=== PATIENT | female | born 1960 | race Caucasian/White ===

== ENCOUNTER 2016-08-24 01:10 | Inpatient (IN) | payer MEDICARE, OTHER ==
[2016-08-24] VITALS (12 sets, daily range): BP systolic 133–158; BP diastolic 61–92; PULSE 89–106; RESP 17–24; TEMP 97.4–98.4; O2SAT 94–99
[~2016-08-24] VITALS: Ht 160 cm; Wt 39.0 kg
[~2016-08-24 01:10] MED LIST: FERR324T4 PO; HYDR25 PO; LACT PO; MELA10TA3 PO; NAPR220T9 PO; SERT100 PO; TRAZ50TA4 PO; TYLE500T PO
[2016-08-24] MEDS ORDERED: SODIUM CHLOR 0.9% 1000 ML INJ 1,000 ML IV SCH (01:19)
--- NOTE | 2016-08-24 01:24 | PD ---
HPI Chief Complaint: Abdominal Pain Time Seen by Provider: 01:19 Travel History International Travel<30 days: No Contact w/Intl Traveler<30days: No Traveled to known affect area: No History of Present Illness HPI This is a 56-year-old female with a history of COPD, who presents today with complaints of abdominal pain. The patient is unable to tell me when the abdominal pain started. She reports the pain as sharp and dull. She reports it as a 6-7 on the pain scale. She reports associated nausea vomiting. She denies any diarrhea. She does report that she has the urge to have a bowel movement however is unable to have a bowel movement. She states the pain is all over however it is worse in her left lower abdomen. There is no reported fevers chills. There is no reported hematemesis. She denies any dysuria, frequency, urgency. PFSH Past Medical History Asthma: Yes Anxiety: Yes Depression: No Heart Rhythm Problems: No Cancer: No Cardiovascular Problems: No Chest Pain: No Congestive Heart Failure: No COPD: Yes Cerebrovascular Accident: No Diabetes: No Endocrine: No Genitourinary: No Hepatitis: No Hiatal Hernia: No Immune Disorder: No Musculoskeletal: Yes (NECK/ BACK PAIN) Neurologic: Yes Psychiatric: Yes Reproductive: No Respiratory: No Migraines: Yes Seizures: No Sleep Apnea: No Thyroid Disease: No Tubal Ligation: Yes Past Surgical History Abdominal Surgery: No AICD: No Arteriovenous Shunt: No Cardiac Surgery: No Ear Surgery: No Endocrine Surgery: No Eye Surgery: No Gynecologic Surgery: Yes (TUBAL LIG.) Insulin Pump: No Joint Replacement: No Oral Surgery: No Pacemaker: No Thoracic Surgery: No Social History Alcohol Use: Yes (DAILY (DENIES)) Tobacco Use: Yes (1/2 PK) Substance Use: Yes (MARIJUANA daily) Allergies-Medications (Allergen,Severity, Reaction): Coded Allergies: Biaxin (Unverified Allergy, Severe, BURNING MOUTH, 08/24/16) Doxycycline (Unverified Allergy, Severe, Rash, 08/24/16) Vioxx (Unverified Allergy, Unknown, 08/24/16) Morphine (Unverified Adverse Reaction, Severe, NAUSEA, 08/24/16) Erythromycin (Verified Adverse Reaction, Intermediate, nausea, 08/24/16) Uncoded Allergies: cheese (Allergy, Mild, Cramping, 06/22/15) Reported Meds & Prescriptions Reported Meds & Active Scripts Active Review of Systems Except as stated in HPI: all other systems reviewed are Neg HENT: Positive: Lightheadedness, No: Headaches, Vertigo Cardiovascular: No: Chest Pain or Discomfort, Palpitations Respiratory: Positive: Shortness of Breath, No: Cough, Wheezing (chronic no new) Gastrointestinal: Positive: Nausea, Abdominal Pain (diffuse worse in the left lower quadrant.) Genitourinary: No: Frequency, Dysuria Musculoskeletal: No: Weakness, Pain Neurologic: No: Weakness, Dizziness, Headache Physical Exam Narrative GENERAL: Thin female who appears older than her stated age. The patient is complaining of abdominal pain SKIN: Focused skin assessment warm/dry. HEAD: Atraumatic. Normocephalic. EYES: No scleral icterus. No injection or drainage. ENT: No nasal bleeding or discharge. Dry mucous membranes. NECK: Trachea midline. Supple. CARDIOVASCULAR: Regular rate and rhythm. No murmur appreciated. RESPIRATORY: No accessory muscle use. Clear to auscultation. Breath sounds equal bilaterally. GASTROINTESTINAL: Abdomen soft, soft, nondistended. She has subjective tenderness in her periumbilical area and left lower area. There is voluntary guarding, no rebound. MUSCULOSKELETAL: No obvious deformities. No clubbing. No cyanosis. No edema. Questionable mild skin tenting. NEUROLOGICAL: Awake and alert. No obvious cranial nerve deficits. Motor grossly within normal limits. Normal speech. Data Data Last Documented VS Vital Signs Date Time Temp Pulse Resp B/P Pulse Ox O2 Delivery O2 Flow Rate FiO2 08/24/16 04:00 106 21 147/85 96 Room Air 08/24/16 01:13 97.4 Orders Complete Blood Count With Diff (08/24/16 01:19) Comprehensive Metabolic Panel (08/24/16 01:19) Urinalysis - C+S If Indicated (08/24/16 01:19) Iv Access Insert/Monitor (08/24/16 01:19) Ecg Monitoring (08/24/16 01:19) Oximetry (08/24/16 01:19) Ondansetron Inj (Zofran Inj) (08/24/16 01:30) Sodium Chlor 0.9% 1000 Ml Inj (Ns 1000 M (08/24/16 01:19) Sodium Chloride 0.9% Flush (Ns Flush) (08/24/16 01:30) Amylase (08/24/16 01:25) Lipase (08/24/16 01:25) Hydromorphone Pf Inj (Dilaudid Pf Inj) (08/24/16 02:30) Lactic Acid (08/24/16 03:34) Oral Contrast - Adult (08/24/16 03:47) Diatrizoate Liq ( Gastroemma Liq) (08/24/16 04:19) Hydromorphone Pf Inj (Dilaudid Pf Inj) (08/24/16 04:30) Sodium Chlor 0.9% 1000 Ml Inj (Ns 1000 M (08/24/16 04:45) Urine Culture (08/24/16 04:45) Ct Abd/Pel W/O Iv Contrast (08/24/16 03:42) Insert Ng Tube (08/24/16 06:53) Admit Order (Ed Use Only) (08/24/16 06:59) Labs Laboratory Tests Test 08/24/16 08/24/16 08/24/16 01:40 03:35 04:45 White Blood Count 29.4 TH/MM3 Red Blood Count 4.63 MIL/MM3 Hemoglobin 14.5 GM/DL Hematocrit 43.9 % Mean Corpuscular Volume 95.0 FL Mean Corpuscular Hemoglobin 31.3 PG Mean Corpuscular Hemoglobin 33.0 % Concent Red Cell Distribution Width 13.5 % Platelet Count 308 TH/MM3 Mean Platelet Volume 8.7 FL Neutrophils (%) (Auto) 84.4 % Lymphocytes (%) (Auto) 5.2 % Monocytes (%) (Auto) 10.3 % Eosinophils (%) (Auto) 0.0 % Basophils (%) (Auto) 0.1 % Neutrophils # (Auto) 24.9 TH/MM3 Lymphocytes # (Auto) 1.5 TH/MM3 Monocytes # (Auto) 3.0 TH/MM3 Eosinophils # (Auto) 0.0 TH/MM3 Basophils # (Auto) 0.0 TH/MM3 CBC Comment AUTO DIFF Differential Total Cells 100 Counted Neutrophils % (Manual) 61 % Band Neutrophils % 29 % Lymphocytes % 3 % Monocytes % 7 % Neutrophils # (Manual) 26.5 TH/MM3 Differential Comment FINAL DIFF MANUAL Platelet Estimate NORMAL Platelet Morphology Comment NORMAL Red Cell Morphology Comment NORMAL Sodium Level 136 MEQ/L Potassium Level 4.1 MEQ/L Chloride Level 95 MEQ/L Carbon Dioxide Level 21.4 MEQ/L Anion Gap 20 MEQ/L Blood Urea Nitrogen 45 MG/DL Creatinine 2.98 MG/DL Estimat Glomerular Filtration 16 ML/MIN Rate Random Glucose 119 MG/DL Calcium Level 8.8 MG/DL Total Bilirubin 0.6 MG/DL Aspartate Amino Transf 52 U/L (AST/SGOT) Alanine Aminotransferase 32 U/L (ALT/SGPT) Alkaline Phosphatase 192 U/L Total Protein 7.6 GM/DL Albumin 3.0 GM/DL Amylase Level 1126 U/L Lipase 69 U/L Lactic Acid Level 2.5 mmol/L Urine Color DARK-YELLOW Urine Turbidity HAZY Urine pH 5.0 Urine Specific [place] 1.022 Urine Protein 30 mg/dL Urine Glucose (UA) NEG mg/dL Urine Ketones NEG mg/dL Urine Occult Blood SMALL Urine Nitrite NEG Urine Bilirubin NEG Urine Urobilinogen 2.0 MG/DL Urine Leukocyte Esterase NEG Urine RBC 1 /hpf Urine WBC 1 /hpf Urine Squamous Epithelial 4 /hpf Cells Urine Amorphous Sediment RARE Urine Bacteria OCC /hpf Urine Hyaline Casts 7 /lpf Urine Mucus FEW /lpf Microscopic Urinalysis Comment CATH-CULTURE IND MDM Medical Decision Making Medical Screen Exam Complete: Yes Emergency Medical Condition: Yes Differential Diagnosis Diverticulitis versus obstipation versus ischemic bowel versus pancreatitis. Narrative Course This is a [age]-year-old female presents with abdominal pain. Patient also has nausea vomiting. Patient has a white count 29,400. Working diagnosis was concern for ischemic bowel. Unfortunate we're unable to obtain an IV contrast CT scan so oral contrast only was ordered. There is evidence of distended stomach and small bowel. There is a large amount of stool in her distal colon. Reading was no evidence of pneumatosis or colitis appreciated. She'll be admitted to the intensive care unit. The patient is very ill appearing. I spoke with Dr. Rich, on-call bath design sales consultant who will see the patient. She's been started and I V fluids. She's been given 2 doses of IVD pain medication. I did speak with Dr. Lim, on-call general surgeon, who will see her in consultation. Diagnosis Primary Impression: Abdominal pain Additional Impressions: Acute kidney injury Leukocytosis history of lung mass Admitting Information Admitting Physician Requests: Admit Jacinto Starks MD Aug 24, 2016 01:24
[2016-08-24] MEDS ORDERED: ONDANSETRON HCL 4 MG/2 ML VIAL IVP ONE (01:30)
[2016-08-24] MEDS ORDERED: HYDROmorphone HCL PF 1 MG/ML VIAL IVS ONE ×3 (01:30→04:30)
[2016-08-24] MEDS ORDERED: SODIUM CHLORIDE 0.9% FLUSH 10 ML FLUSH IV FLUSH PRN ×2 (01:30→08:30)
[2016-08-24 02:51] LABS: AUTOMATED NEUTROPHIL # 24.9 TH/MM3 (1.8-7.7); BASOPHIL % 0.1 % (0.0-2.0); HEMATOCRIT 43.9 % (35.0-46.0); LYMPH % 5.2 % (9.0-44.0); LYMPHOCYTE # 1.5 TH/MM3 (1.0-4.8); MEAN CORPUSCULAR HEMOGLOBIN 31.3 PG (27.0-34.0); MONO % 10.3 % (0.0-8.0); NEUT % 84.4 % (16.0-70.0); PLATELET COUNT 308 TH/MM3 (150-450); RED BLOOD COUNT 4.63 MIL/MM3 (4.00-5.30); RED CELL DISTRIBUTION WIDTH 13.5 % (11.6-17.2); WHITE BLOOD COUNT 29.4 TH/MM3 (4.0-11.0)
[2016-08-24 02:55] LABS: HEMO FLAGS AUTO DIFF
[2016-08-24 03:16] LABS: AMYLASE 1126 U/L (25-115)
[2016-08-24 03:22] LABS: BANDS 29 % (0-6); NEUTROPHIL # MANUAL DIFF 26.5 TH/MM3 (1.8-7.7); POLYS (SEG NEUTROPHILS) 61 % (16-70); WBC DIFF SAMPLE 100
[2016-08-24 03:23] LABS: PLATELET ESTIMATE SMEAR NORMAL (NORMAL); PLATELET MORPHOLOGY NORMAL (NORMAL); SCAN/DIFF FINAL DIFF MANUAL
[2016-08-24] MEDS ORDERED: DIATRIZOATE MEGLUM/DIATRIZOATE SOD 9 ML CUP ONE (04:19)
[2016-08-24] MEDS ORDERED: SODIUM CHLOR 0.9% 1000 ML INJ 1,000 ML IV ONE ×2 (04:45→08:45)
[2016-08-24 05:37] LABS: BACTERIA, URINE OCC /hpf; BLOOD, URINE SMALL (NEG); COMMENT (UR) CATH-CULTURE IND; CULTURE IF INDICATED CATH CULTURE IND; GLUCOSE,URINE NEG (NEG); HYALINE CAST, URINE 7 /lpf (RARE); KETONE, URINE NEG (NEG); MUCUS URINE FEW /lpf (OCC); NITRITE,URINE NEG (NEG); SQUAMOUS EPITHELIAL CELL URINE 4 /hpf (0-5); URINE COLOR DARK-YELLOW (YELLW/STRAW)
[2016-08-24 05:50] LABS: ALT (GPT) 32 U/L (10-53); ANION GAP 20 MEQ/L (5-15); AST (GOT) 52 U/L (15-37); BICARBONATE 21.4 MEQ/L (21.0-32.0); BLOOD UREA NITROGEN 45 MG/DL (7-18); CHLORIDE 95 MEQ/L (98-107); GLOMERULAR FILTRATION RATE 16 ML/MIN (>89); SODIUM (NA) 136 MEQ/L (136-145)
[2016-08-24 05:51] LABS: ALKALINE PHOSPHATASE 192 U/L (45-117); POTASSIUM 4.1 MEQ/L (3.5-5.1); TOTAL BILIRUBIN ADULT 0.6 MG/DL (0.2-1.0)
--- NOTE | 2016-08-24 06:47 | RADRPT ---
EXAM DATE/TIME: 08/24/2016 06:05 [facility] COMPARISON: No previous studies available for comparison. INDICATIONS : Left lower abdominal pain. No bowel movements x1 week. ORAL CONTRAST: Prescribed oral contrast ingested. RADIATION DOSE: 4.52 CTDIvol (mGy) MEDICAL HISTORY : Chronic obstructive pulmonary disease. SURGICAL HISTORY : Tubal ligation. Lumbar surgery. ENCOUNTER: Initial ACUITY: 1 week PAIN SCALE: 10/10 LOCATION: Left lower quadrant TECHNIQUE: Volumetric scanning of the abdomen and pelvis was performed. Using automated exposure control and ad justment of the mA and/or kV according to patient size, radiation dose was kept as low as reasonably achievable to obtain optimal diagnostic quality images. DICOM format image data is available electro nically for review and comparison. FINDINGS: LOWER LUNGS: Minimal consolidation medial left lung base unchanged LIVER: Homogeneous density without lesion. There is no dilation of the biliary tree. No calcified gallston es. SPLEEN: Normal size without lesion. PANCREAS: Within normal limits. KIDNEYS: Normal in size and shape. There is no mass, stone, or hydronephrosis. ADRENAL GLANDS: Within normal limits. VASCULAR: There is no aortic aneurysm. BOWEL/MESENTERY: The stomach is markedly dilated and filled with fluid and contrast. The small bowel is markedly diste nded filled with fluid. There is a large amount of stool throughout the transverse and descending col ons. The no evidence of pneumatosis is noted. There is no intraperitoneal air. I don't see any obviou s wall thickening of any of the loops of bowel identified. There is calcified atherosclerotic disease but what I see the mesenteric vessels are patent ABDOMINAL WALL: Within normal limits. RETROPERITONEUM: There is no lymphadenopathy. BLADDER: No wall thickening or mass. REPRODUCTIVE: Within normal limits. INGUINAL: There is no lymphadenopathy or hernia. MUSCULOSKELETAL: Within normal limits for patient age. CONCLUSION: There is marked distention and fluid filled stomach and small bowel. There is stool throughout the co clemente distally. No obvious wall thickening or pneumatosis identified. No visible evidence of colitis or ischemic bowel. Neto Zambrano MD on August 24, 2016 at 6:43 Board Certified Radiologist. This report was verified electronically.
[2016-08-24] MEDS ORDERED: PIPERACIL-TAZO 3.375 GM PREMIX 50 ML IV ONE (07:30)
[2016-08-24] MEDS ORDERED: RESP: ALBUTEROL 2.5 MG/3 ML NEB (PRN) INH (08:30)
[2016-08-24] MEDS ORDERED: MISCELLANEOUS NURSING INFORMATION XX SCH (08:30)
[2016-08-24] MEDS ORDERED: ACETAMINOPHEN 325 MG TAB PO PRN (08:30)
[2016-08-24] MEDS ORDERED: CHLORHEXIDINE GLUCONATE 2 % 1 PACK (2 CLOTHS) TOP PRN (08:30)
[2016-08-24] MEDS ORDERED: ACETAMINOPHEN 1000 MG/100 ML VIAL IV PRN (08:45)
[2016-08-24] MEDS ORDERED: SODIUM CHLOR 0.45% 1000 ML INJ 1,000 ML IV ONE (08:45)
[2016-08-24] MEDS ORDERED: GLYCERIN ADULT 2 GM SUPP RECTAL PRN (08:45)
[2016-08-24] MEDS ORDERED: NITROGLYCERIN 2% OINT 1 GM PACKET TOPICAL PRN (08:45)
[2016-08-24] MEDS ORDERED: LORazepam 2 MG/ML VIAL IV PUSH PRN (08:45)
[2016-08-24] MEDS ORDERED: PIPERACIL-TAZO 2.25 GM PREMIX 50 ML IV SCH (08:45)
[2016-08-24] MEDS ORDERED: hydrALAZINE HCL 20 MG/ML VIAL IV PUSH PRN (08:45)
[2016-08-24] MEDS ORDERED: METHYLNALTREXONE BROMIDE 12 MG/0.6 ML VIAL SQ ONE (08:45)
[2016-08-24] MEDS ORDERED: LABETALOL HCL 100 MG/20 ML VIAL IV PUSH PRN (08:45)
--- NOTE | 2016-08-24 08:58 | RADRPT ---
EXAM DATE/TIME: 08/24/2016 08:52 [facility] COMPARISON: CHEST SINGLE AP, June 25, 2015, 13:10. INDICATIONS : Short of breath MEDICAL HISTORY : Chronic obstructive pulmonary disease. SURGICAL HISTORY : Tubal ligation. ENCOUNTER: Initial ACUITY: 1 day PAIN SCORE: 0/10 LOCATION: Bilateral chest FINDINGS: There is hyperinflation. Aortic calcification noted. Heart size normal. EKG leads overlie the chest a nd oxygen tubing. NG tube coiled in the stomach. The ribs are noted left mid lung consolidation has r esolved however a focal left mid lung irregular density measuring 1.6 cm is identified consistent wit h the patient's known left mid lung mass. There is bronchiectasis in the left lower lobe with mild vo lume loss. CONCLUSION: 1. Left mid lung mass suspected with irregular nodular focus seen. 2. Left lower lobe bronchiectasis and atelectasis. Jacob Sung MD on August 24, 2016 at 8:54 Board Certified Radiologist. This report was verified electronically.
[2016-08-24] MEDS: SODIUM CHLORIDE 0.9% FLUSH 10 ML FLUSH IV FLUSH SCH ×2 (09:00→21:00)
--- NOTE | 2016-08-24 09:01 | HHI.HP ---
[facility] Service Critical Care Medicine Primary Care Physician Danya Lewis MD Admission Diagnosis abodominal pain, leukocytosis, obstipation, Diagnosis: (1) Atherosclerotic plaque Diagnosis: Principal (2) Obstipation Diagnosis: Principal (3) Elevated AST (SGOT) Diagnosis: Principal (4) COPD (chronic obstructive pulmonary disease) Diagnosis: Principal (5) Lactic acidosis Diagnosis: Principal (6) Elevated amylase Diagnosis: Principal (7) Tetrahydrocannabinol (THC) use disorder, mild, abuse Diagnosis: Principal (8) Leukocytosis Diagnosis: Principal (9) Acute kidney injury Diagnosis: Principal (10) Abdominal pain Diagnosis: Principal (11) Body mass index less than 16.5 Diagnosis: Principal (12) Tobacco abuse Diagnosis: Principal (13) Anxiety Diagnosis: Principal (14) Neutrophilic leukocytosis Diagnosis: Principal (15) Dyslipidemia Diagnosis: Principal (16) Cachectic Diagnosis: Principal (17) SIRS (systemic inflammatory response syndrome) Diagnosis: Principal Chief Complaint: Abdominal pain 2 days Travel History International Travel<30 Days: No Contact w/Intl Traveler <30 Da: No Traveled to Known Affected Are: No Sepsis Criteria SIRS Criteria (2 or more): WBC > 83554, < 4000 or > 10% bands Criteria Outcome: Meets SIRS criteria History of Present Illness 87-year-old female. Date of admission 08/24/2016. Past medical history includes migraine headache, anxiety disorder follows the [facility] and COPD. She smokes one half pack per day and uses THC. Patient states she has not had a "bowel movement" since 1 month ago. Since June, patient has issues with constipation after having a colonoscopy. Patient had normal bowel movements/regimen each morning prior to these events. CT abdomen/ pelvis revealed retained stool in the small bowel and also a possible mural thrombus in the distal aorta. He was evaluated by Dr. Dowling this is thought to be a mobile plaque. No further intervention at this time. Colonoscopy was performed which revealed no acute findings according to patient. For the past 2 days, patient is expressing diffuse abdominal pain/sharp separately involving her bilateral lower quadrant including nausea and vomiting. She is unable to keep down liquids. Pain is a score is 6 out of 10. Sharp. No relief. Not positional. CT abdomen/post revealed stomach dilated and filled with contrast. Small bowel dilated./Distended. There is stool throughout the transverse and descending colon. No signs of pneumatosis or mesenteric ischemia. White cell count was 29 ,000 with neutrophilic shift. Patient had creatinine of 2.90. Baseline 0.6. Lactic acid 2.5. Elevated amylase of 1126. Received 1 L normal saline in ED and Dilaudid 2 dosages for pain management. NG tube was placed in right nares with dark gastric contents. Abdomen still remains distended/patient with abdominal pain and feels dehydrated. Patient was evaluated by Dr. Lim/general surgery who recommended serial abdominal examinationsobservation. Review of Systems Constitutional: COMPLAINS OF: Fatigue, Weight loss, DENIES: Fever, Weight gain Endocrine: DENIES: Polydipsia, Polyuria Eyes: DENIES: Blurred vision, Vision loss Ears, nose, mouth, throat: DENIES: Tinnitus, Odynophagia Respiratory: DENIES: Apneas Cardiovascular: DENIES: Chest pain Gastrointestinal: COMPLAINS OF: Abdominal pain, Constipation, Nausea, Vomiting , Anorexia, DENIES: Black stools, Bloody stools, Diarrhea Musculoskeletal: COMPLAINS OF: Joint pain Integumentary: DENIES: Pruritus, Rash Hematologic/lymphatic: DENIES: Bruising Immunologic/allergic: DENIES: Eczema Neurologic: COMPLAINS OF: Headache, DENIES: Abnormal gait Psychiatric: COMPLAINS OF: Anxiety, DENIES: Confusion Past Family Social History Allergies: Coded Allergies: Biaxin (Unverified Allergy, Severe, BURNING MOUTH, 08/24/16) Doxycycline (Unverified Allergy, Severe, Rash, 08/24/16) Vioxx (Unverified Allergy, Unknown, 08/24/16) Morphine (Unverified Adverse Reaction, Severe, NAUSEA, 08/24/16) Erythromycin (Verified Adverse Reaction, Intermediate, nausea, 08/24/16) Uncoded Allergies: cheese (Allergy, Mild, Cramping, 06/22/15) Past Medical History Constipation Migraine headache Anxiety disorder -follows with [facility] COPD Ongoing tobaccoism THC use Past Surgical History Tubal ligation Carpal tunnel release Lumbar laminectomy 2001 Colonoscopy 07/09 Reported Medications Atarax Zoloft Trazodone Patient is also on inhaler and another antidepression medication which she does not know. Medicine reconciliation incomplete at this time. Active Ordered Medications Reviewed in EMR Family History Mother from lung cancer. Father of natural causes. One brother and sister in good health. Social History One half pack per day 30 years. Occasional alcohol use. Denies abuse. Positive THC use daily. Physical Exam Vital Signs Vital Signs Date Time Temp Pulse Resp B/P Pulse Ox O2 Delivery O2 Flow Rate FiO2 08/24/16 04:00 106 21 147/85 96 Room Air 08/24/16 03:30 18 08/24/16 01:17 22 08/24/16 01:13 97.4 103 22 158/91 99 Physical Exam GENERAL: 48-year-old female, critically ill currently resting in bed SKIN: Warm and dry. No rash HEAD: Atraumatic. Normocephalic. EYES: Pupils equal and round around 3 mm bilaterally and reactive. No scleral icterus. No injection or drainage. ENT: No nasal bleeding or discharge. Mucous membranes pink and dry. Oropharynx without erythema NECK: Trachea midline. No JVD. CARDIOVASCULAR: Regular rate and rhythm. S1, S2. No S4. RESPIRATORY: No accessory muscle use. Clear to auscultation. Breath sounds equal bilaterally. GASTROINTESTINA: Scaphoid, tender to palpation stenosis in the bilateral lower quadrants. Voluntary guarding. No rigidity. Bowel sounds were not appreciated after 30 seconds all 4 quadrants. MUSCULOSKELETAL: Extremities without peripheral edema. No obvious deformities. NEUROLOGICAL: Awake and alert. No obvious cranial nerve deficits. Motor grossly within normal limits. Five out of 5 muscle strength in the arms and legs. Normal speech. PSYCHIATRIC: Anxious. Laboratory Laboratory Tests Test 08/24/16 08/24/16 08/24/16 01:40 03:35 04:45 White Blood Count 29.4 Red Blood Count 4.63 Hemoglobin 14.5 Hematocrit 43.9 Mean Corpuscular Volume 95.0 Mean Corpuscular Hemoglobin 31.3 Mean Corpuscular Hemoglobin 33.0 Concent Red Cell Distribution Width 13.5 Platelet Count 308 Mean Platelet Volume 8.7 Neutrophils (%) (Auto) 84.4 Lymphocytes (%) (Auto) 5.2 Monocytes (%) (Auto) 10.3 Eosinophils (%) (Auto) 0.0 Basophils (%) (Auto) 0.1 Neutrophils # (Auto) 24.9 Lymphocytes # (Auto) 1.5 Monocytes # (Auto) 3.0 Eosinophils # (Auto) 0.0 Basophils # (Auto) 0.0 CBC Comment AUTO DIFF Differential Total Cells 100 Counted Neutrophils % (Manual) 61 Band Neutrophils % 29 Lymphocytes % 3 Monocytes % 7 Neutrophils # (Manual) 26.5 Differential Comment FINAL DIFF MANUAL Platelet Estimate NORMAL Platelet Morphology Comment NORMAL Red Cell Morphology Comment NORMAL Sodium Level 136 Potassium Level 4.1 Chloride Level 95 Carbon Dioxide Level 21.4 Anion Gap 20 Blood Urea Nitrogen 45 Creatinine 2.98 Estimat Glomerular Filtration 16 Rate Random Glucose 119 Calcium Level 8.8 Total Bilirubin 0.6 Aspartate Amino Transf 52 (AST/SGOT) Alanine Aminotransferase 32 (ALT/SGPT) Alkaline Phosphatase 192 Total Protein 7.6 Albumin 3.0 Amylase Level 1126 Lipase 69 Lactic Acid Level 2.5 Urine Color DARK-YELLOW Urine Turbidity HAZY Urine pH 5.0 Urine Specific [place] 1.022 Urine Protein 30 Urine Glucose (UA) NEG Urine Ketones NEG Urine Occult Blood SMALL Urine Nitrite NEG Urine Bilirubin NEG Urine Urobilinogen 2.0 Urine Leukocyte Esterase NEG Urine RBC 1 Urine WBC 1 Urine Squamous Epithelial 4 Cells Urine Amorphous Sediment RARE Urine Bacteria OCC Urine Hyaline Casts 7 Urine Mucus FEW Microscopic Urinalysis Comment CATH-CULTURE IND Date/Time Procedure Status Source Growth 08/24/16 04:45 Urine Culture Received Urine Catheterized Urine Pending Result Diagram: 08/24/16 0140 08/24/[address] abdomen/pelvis -stomach dilated and filled with fluid/contrast. Small bowel study. Still, the transverse and descending colon. No pneumatosis. No signs of mesenteric ischemia. Assessment and Plan Assessment and Plan Neuro/Psych: Anxiety disorder NOS Acute abdominal pain management History of migraine headache THC use Patient states she is on Atarax 25 mg 4 times daily, Zoloft unknown dosage daily and trazodone all the new medications. Pharmacy reconciliation pending at time of dictation We'll place on Ativan 0.5 every 6 hours when necessary for anxiety Ofirmev for fever/abdominal pain as needed x 24 hours She received Dilaudid in the ED without application. Noted morphine allergy. We'll place on 0.5-1 mg every 3 hours when necessary pain. CV: Hypertension History of aortic plaque Lactic acidosis Patient had a CT abdomen/pelvis in her records which is described as a mural thrombus with penetrating ulcer in descending distal aorta. Was evaluated by Dr. Pappas. According to patient, believes this is an aortic plaque. No intervention at this time. As needed labetalol/hydralazine/Nitropaste for hypertension Currently normal saline at 84 cc an hour. Not requiring vasopressors at the present time. CPK/troponin/EKG all pending Serial lactates until clear. Last 2.5 Resp: COPD Tobaccoism Nasal cannula to maintain saturations greater than equal to 92% Incentive spirometry while awake Patient is on unknown oral inhaler home. We'll place on duo nebs every 6 hours with albuterol nebs every 2 hours. Breakthrough Tobacco sensation will be encouraged. Nicotine patch if indicated GI: Abdominal pain NOS Obstipation History of constipation Elevated amylase Elevated AST CT abdomen/pelvis 08/23 oral contrast only revealed stemming dilated filled with fluid/contrast. Small bowel distended. Stool throughout the transverse colon/ descending colon. No pneumatosis. No signs of mesenteric ischemia or bowel edema. Evaluated by Dr. Lim/. Recommend serial abdominal exacerbations Will check bladder pressures every 6 hours. Repeat LFTs/amylase in a.m. Additional imaging as indicated clinically : Crowe catheter if indicated for accurate I's and O's in a critically ill patient Endo: Check TSH and cortisol in light of constipation Sliding scale insulin if indicated to maintain euglycemia Renal: Acute kidney injury - likely prerenal secondary to dehydration Urine electrolytes/eosinophils pending. Signs of hydronephrosis on abdominal CT. Received 1 L normal saline ED. Will give 2 additional liters of crystalloid. Recheck BMP this afternoon. Accurate I's and O's Monitor urine output Heme: Leukocytosis Likely reactive secondary to underlying abdominal etiology. Coags pending. Recheck CBC in a.m. monitor trends ID: We'll place empirically on Zosyn renally dosed day #1 Blood cultures 2, UA pending FEN: Replace electrolytes as clinically indicated. Currently normal saline at 84 cc an hour. MSK: Currently on bed rest. Access - Utilize peripheral IVs. Central line if indicated Prophylaxis - GI - Protonix - DVT - SCD/heparin subcutaneous Level III admission Code Status Full code Discussed Condition With After Starks/ED physician. Dr. Lim/general surgery. Patient. Care plan discussed questions answered. Problem Qualifiers (1) COPD (chronic obstructive pulmonary disease): Qualified Code: J44.9 - Chronic obstructive pulmonary disease, unspecified COPD type (2) Leukocytosis: Qualified Code: D72.825 - Bandemia (3) Abdominal pain: Qualified Code: R10.30 - Lower abdominal pain Rg Rich MD Aug 24, 2016 09:01
[2016-08-24] MEDS: PANTOPRAZOLE SODIUM 40 MG VIAL IV SCH (09:14)
[2016-08-24] MEDS: HEPARIN SODIUM - SQ 10,000 UNITS/ML VIAL SQ SCH ×2 (09:14→21:28)
[2016-08-24] MEDS: SODIUM CHLOR 0.9% 1000 ML INJ 1,000 ML IV SCH ×2 (09:14→20:55)
[2016-08-24 09:39] LABS: APTT (PATIENT) 40.4 SEC (24.3-30.1); INTERNATIONAL NORMALIZED RATIO 1.3 RATIO
[2016-08-24 10:27] LABS: CREATINE KINASE 513 U/L (26-192)
[2016-08-24 10:40] LABS: CKMB 16.9 NG/ML (0.5-3.6)
[2016-08-24] MEDS: RESP: ALBUTEROL 2.5 MG/IPRATROPIUM 0.5 MG NEB (SCH) INH ×3 (11:42→20:00)
[2016-08-24] MEDS: LACTULOSE SYRUP 20 GM/30 ML CUP PO SCH ×4 (12:04→21:28)
[2016-08-24] MEDS: DOCUSATE SODIUM 100 MG/10 ML UDC PO SCH ×2 (12:05→21:28)
[2016-08-24] MEDS: SENNOSIDES SYRUP 8.8 MG/5 ML CUP PO SCH (12:05)
[2016-08-24] MEDS: POLYETHYLENE GLYCOL 17 GM PKG PO SCH (12:05)
[2016-08-24] MEDS: PIPERACIL-TAZO 2.25 GM PREMIX 50 ML IV SCH ×2 (14:00→20:00)
[2016-08-24] MEDS: HYDROmorphone HCL PF 1 MG/ML VIAL IV PUSH PRN (15:16)
--- NOTE | 2016-08-24 15:52 | MB ---
cc: BERE BURT MD DATE OF CONSULTATION: 08/24/2016. REASON FOR CONSULTATION: Abdominal pain, rule out acute abdomen. HISTORY OF PRESENT ILLNESS: The patient is a 56-year-old female who presents with complaints of acute onset of abdominal pain. She stated the pain started over a month ago; however, in the last few days it has increased substantially to 8/10 bilateral lower quadrants. It is sharp. No improvement with home medications or laxatives or cathartics. The patient has also had multiple episodes of nausea and vomiting and unable to keep liquids down. Given this, she came to the emergency department for further evaluation. She had a CT scan showing dilated stomach, small bowel with large stool in her colon. She had a white count of 29, creatinine 2.9, lactate of 2.5 and amylase of 1126. A nasogastric tube was placed. Surgery was consulted for further evaluation. On my exam, the patient does have significant bilateral lower quadrant tenderness. She states she has had chronic abdominal pain for several months. She has had further workup including medical management with [facility] without much improvement. She did undergo colonoscopy and said her issues were exacerbated following this. She did not report any problem with the colonoscopy. She also had an endoscopy and "showing ulcers" and was placed on Protonix proton pump inhibitor. She does state her abdominal pain did improve somewhat with nasogastric tube placement and she states she has been constipated for approximately one month. She does have a history of chronic NSAID use but has stopped this since development of ulcers. She also has a history of diverticulosis, COPD and rheumatoid arthritis. The patient further denies fevers or chills or diarrhea. PAST MEDICAL HISTORY: 1. COPD. 2. Diverticulosis. 3. Rheumatoid arthritis. 4. Chronic back pain. PAST SURGICAL HISTORY: 1. Tubal ligation. 2. Carpal tunnel release. 3. Lumbar laminectomy. 4. Colonoscopy. 5. Endoscopy. MEDICATIONS: See the MAR. ALLERGIES: 1. BIAXIN. 2. DOXYCYCLINE. 3. ERYTHROMYCIN. 4. MORPHINE. 5. VIOXX. 6. CHEESE. FAMILY HISTORY: Mother of lung cancer. Father in good health. SOCIAL HISTORY: The patient smokes half-pack per day. Occasional ETOH. Positive THC. REVIEW OF SYSTEMS: GENERAL: The patient complained of fatigue and headache. No weight loss. Denies fevers. HEAD, EYES, EARS, NOSE, THROAT: Denies eye pain, ear pain. RESPIRATORY: Denies cough or wheeze. CARDIOVASCULAR: Denies palpitation or chest pain. GI: Complains of nausea, vomiting, abdominal pain, constipation. MUSCULOSKELETAL: Complained of arthralgias. Denies myalgia. INTEGUMENT: Denies rash or itching. HEMATOLOGIC: Denies bleeding of bruising. ENDOCRINE: Denies eczema. NEUROLOGIC: Denies numbness or tingling. PSYCHIATRIC: Denies confusion. Complained of anxiety. PHYSICAL EXAMINATION: GENERAL: The patient is in no acute distress. VITAL SIGNS: Temperature 97.4, pulse 103, respirations 22, blood pressure 158/91, pulse oximetry 99%. HEAD, EYES, EARS, NOSE, THROAT: Pupils equal, round and reactive to light and accommodation. Extraocular muscles intact. NECK: The neck is supple. Trachea is midline. HEART: Regular rate and rhythm. S1 and S2. CHEST /LUNGS: Bilateral expansion. Clear. ABDOMEN: Positive tenderness to palpation bilateral lower quadrants, guarding. No rigidity. No peritoneal signs. EXTREMITIES: Warm and well-perfused. NEUROLOGIC: Alert and oriented times three. 5/5 motor all extremities. PSYCHIATRIC: Anxiety. LABORATORY AND DIAGNOSTIC DATA: WBC 29.4, hemoglobin 14.5, hematocrit 43.9, platelets 308,000. Sodium 136, potassium 4.1, chloride 95, BUN 45, creatinine 2.9, lactate 2.5, calcium 8.8, AST 52, ALT 32, alkaline phosphatase 192. Amylase 1126, lipase 69. INR is 1.3, PT 14, PTT 40. CT reviewed by myself noncontrasted study: Distended fluid-filled small bowel and stomach. Significant fecal load in colon. No evidence of pneumatosis. No appearance of ischemia. ASSESSMENT: The patient is a 56-year-old female with several medical issues including a small ulcer which is treated with PPI, abdominal pain, severe constipation with obstruction from this, history of diverticulosis, history of mural thrombus evaluated with nonoperative management. PLAN: After full clinical, radiologic and laboratory workup, patient with above-named issues including acute significant abdominal pain. At this point, the patient does have bowel obstruction likely due to significant fecal load and impaction.. 1. At this point I recommend stool softeners and digital disimpaction and possible enema to help alleviate this. 2. The patient does have a leukocytosis of 29 but is afebrile and otherwise stable. She does not have any peritoneal signs. I am not currently concerned of any perforation at this time; however, we will monitor and watch the patient closely. 3. Further potential concern would be for mesenteric ischemia as the patient does have a history of questionable mural thrombus in the past. At this point, if the patient's creatinine improves, we could consider obtaining CT scan angiogram to evaluate the vessels; however again, recommend IV hydration, pain control and possible antibiotics for initial treatment of this as the patient does have significantly tender abdomen but no evidence of peritoneal signs. 4. The patient does have a history of small duodenal ulcers. At this point, recommend continuing Protonix. 5. The patient is also further at risk for ulcer due to the smoking and the chronic NSAIDs, which she should avoid NSAIDs and recommend smoking cessation. 6. Further agree with trending lactate until clear. 7. Agree with nasogastric tube placement. Again, we will treat this nonoperatively. If any change in clinical status, we will consider operative intervention but until now, nonoperative intervention. MD SHELLIE Camar[place]/[facility] /1:22 PM /3:36 PM
[2016-08-24 20:00] LABS: BICARBONATE 24.1 MEQ/L (21.0-32.0); MAGNESIUM 3.5 MG/DL (1.5-2.5); POTASSIUM 3.6 MEQ/L (3.5-5.1)
[2016-08-24 20:13] LABS: CALCIUM-PROTEIN CORRECTED 8.2 MG/DL (8.5-10.1)
[2016-08-24] MEDS: MAGNESIUM CITRATE SOLN 300 ML BTL PO SCH (21:28)
[2016-08-25] VITALS (14 sets, daily range): BP systolic 132–162; BP diastolic 63–76; PULSE 76–92; RESP 16–21; TEMP 97.2–98.7; O2SAT 95–100
[2016-08-25] MEDS: BISACODYL EC 5 MG TABEC PO SCH ×2 (02:10→03:44)
[2016-08-25] MEDS: PIPERACIL-TAZO 2.25 GM PREMIX 50 ML IV SCH ×4 (02:10→20:08)
[2016-08-25] MEDS: MAGNESIUM CITRATE SOLN 300 ML BTL PO SCH (02:10)
[2016-08-25] MEDS: CHLORHEXIDINE GLUCONATE 2 % 1 PACK (2 CLOTHS) TOP SCH (02:13)
[2016-08-25 03:36] LABS: AUTOMATED NEUTROPHIL # 13.5 TH/MM3 (1.8-7.7); BASOPHIL % 0.2 % (0.0-2.0); EOSINOPHIL % 0.1 % (0.0-4.0); HEMATOCRIT 29.3 % (35.0-46.0); HEMO FLAGS DIFF FINAL; LYMPH % 4.6 % (9.0-44.0); LYMPHOCYTE # 0.7 TH/MM3 (1.0-4.8); MEAN CELL VOLUME 94.2 FL (80.0-100.0); MEAN CORPUSCULAR HEMOGLOBIN 31.2 PG (27.0-34.0); MEAN CORPUSCULAR HGB CONC 33.2 % (32.0-36.0); MONO % 9.9 % (0.0-8.0); NEUT % 85.2 % (16.0-70.0); PLATELET COUNT 226 TH/MM3 (150-450); RED BLOOD COUNT 3.12 MIL/MM3 (4.00-5.30); RED CELL DISTRIBUTION WIDTH 13.4 % (11.6-17.2); WHITE BLOOD COUNT 15.9 TH/MM3 (4.0-11.0)
[2016-08-25] MEDS: RESP: ALBUTEROL 2.5 MG/IPRATROPIUM 0.5 MG NEB (SCH) INH ×7 (04:00→23:09)
[2016-08-25 04:10] LABS: APTT (PATIENT) 42.7 SEC (24.3-30.1)
[2016-08-25 04:13] LABS: PROTHROMBIN TIME - PATIENT 12.2 SEC (9.8-11.6)
[2016-08-25 04:14] LABS: ALKALINE PHOSPHATASE 120 U/L (45-117); ALT (GPT) 40 U/L (10-53); ANION GAP 9 MEQ/L (5-15); AST (GOT) 79 U/L (15-37); BICARBONATE 23.9 MEQ/L (21.0-32.0); BLOOD UREA NITROGEN 48 MG/DL (7-18); CHLORIDE 107 MEQ/L (98-107); GLOMERULAR FILTRATION RATE 45 ML/MIN (>89); INTERNATIONAL NORMALIZED RATIO 1.1 RATIO; MAGNESIUM 3.6 MG/DL (1.5-2.5); POTASSIUM 3.6 MEQ/L (3.5-5.1); SODIUM (NA) 140 MEQ/L (136-145); TOTAL BILIRUBIN ADULT 0.5 MG/DL (0.2-1.0)
[2016-08-25] MEDS: HYDROmorphone HCL PF 1 MG/ML VIAL IV PUSH PRN ×5 (05:39→23:41)
--- NOTE | 2016-08-25 08:02 | HHI.CCPN ---
Subjective Remarks/Hospital Course 87-year-old female. Date of admission 08/24/2016. Past medical history includes migraine headache, anxiety disorder follows the [facility] and COPD. She smokes one half pack per day and uses THC. Patient states she has not had a "bowel movement" since 1 month ago. Since June, patient has issues with constipation after having a colonoscopy. Patient had normal bowel movements/regimen each morning prior to these events. CT abdomen/ pelvis revealed retained stool in the small bowel and also a possible mural thrombus in the distal aorta. He was evaluated by Dr. Dowling this is thought to be a mobile plaque. No further intervention at this time. Colonoscopy was performed which revealed no acute findings according to patient. For the past 2 days, patient is expressing diffuse abdominal pain/sharp separately involving her bilateral lower quadrant including nausea and vomiting. She is unable to keep down liquids. Pain is a score is 6 out of 10. Sharp. No relief. Not positional. CT abdomen/post revealed stomach dilated and filled with contrast. Small bowel dilated./Distended. There is stool throughout the transverse and descending colon. No signs of pneumatosis or mesenteric ischemia. White cell count was 29,000 with neutrophilic shift. Patient had creatinine of 2.90. Baseline 0.6. Lactic acid 2.5. Elevated amylase of 1126. Received 1 L normal saline in ED and Dilaudid 2 dosages for pain management. NG tube was placed in right nares with dark gastric contents. Abdomen still remains distended/patient with abdominal pain and feels dehydrated. Patient was evaluated by Dr. iLm/general surgery who recommended serial abdominal examinationsobservation. 08/25 Patient reports feeling nauseas this morning and abdominal pain. Had 3 small BM's overnight. Afebrile. WBC is trending down and renal function is improving CT abdomen/pelvis yesterday showed marked distention and fluid filled stomach and small bowel. There is stool throughout the colon distally. No obvious wall thickening or pneumatosis identified. No visible evidence of colitis or ischemic bowel. Objective Vital Signs Date Time Temp Pulse Resp B/P Pulse Ox O2 Delivery O2 Flow Rate FiO2 08/25/16 07:11 100 21 08/25/16 06:09 19 08/25/16 06:00 84 08/25/16 04:00 98.1 138/65 08/24/16 20:00 Nasal Cannula 2.00 Intake and Output 08/24/16 08/24/16 08/25/16 08:00 16:00 00:00 Intake Total 1000 ml 360 ml Output Total 750 ml 1000 ml Balance -750 ml 1000 ml -640 ml Result Diagram: 08/25/16 0326 08/25/16 0326 Other Results Laboratory Tests Test 08/24/16 08/24/16 08/24/16 08/24/16 09:00 13:30 15:02 17:03 Prothrombin Time 14.0 SEC Prothromb Time International 1.3 RATIO Ratio Activated Partial 40.4 SEC Thromboplast Time Total Creatine Kinase 513 U/L Creatine Kinase MB 16.9 NG/ML Creatine Kinase MB % 3.3 % Troponin I LESS THAN 0.02 NG/ML Nasal Screen MRSA (PCR) MRSA NOT DETECTED Urine Eosinophils NONE SEEN /HPF Lactic Acid Level 0.9 mmol/L Test 08/24/16 08/24/16 08/25/16 18:51 23:45 03:26 Sodium Level 136 MEQ/L 140 MEQ/L Potassium Level 3.6 MEQ/L 3.6 MEQ/L Chloride Level 103 MEQ/L 107 MEQ/L Carbon Dioxide Level 24.1 MEQ/L 23.9 MEQ/L Anion Gap 9 MEQ/L 9 MEQ/L Blood Urea Nitrogen 59 MG/DL 48 MG/DL Creatinine 1.66 MG/DL 1.22 MG/DL Estimat Glomerular Filtration 32 ML/MIN 45 ML/MIN Rate Random Glucose 88 MG/DL 81 MG/DL Calcium Level 7.3 MG/DL 7.5 MG/DL Protein Corrected Calcium 8.2 MG/DL Phosphorus Level 4.6 MG/DL 3.2 MG/DL Magnesium Level 3.5 MG/DL 3.6 MG/DL Total Protein 5.4 GM/DL 5.8 GM/DL Thyroid Stimulating Hormone 0.246 uIU/ML 3rd Gen Random Cortisol 51.4 MCG/DL Lactic Acid Level 0.6 mmol/L 0.6 mmol/L White Blood Count 15.9 TH/MM3 Red Blood Count 3.12 MIL/MM3 Hemoglobin 9.7 GM/DL Hematocrit 29.3 % Mean Corpuscular Volume 94.2 FL Mean Corpuscular Hemoglobin 31.2 PG Mean Corpuscular Hemoglobin 33.2 % Concent Red Cell Distribution Width 13.4 % Platelet Count 226 TH/MM3 Mean Platelet Volume 7.7 FL Neutrophils (%) (Auto) 85.2 % Lymphocytes (%) (Auto) 4.6 % Monocytes (%) (Auto) 9.9 % Eosinophils (%) (Auto) 0.1 % Basophils (%) (Auto) 0.2 % Neutrophils # (Auto) 13.5 TH/MM3 Lymphocytes # (Auto) 0.7 TH/MM3 Monocytes # (Auto) 1.6 TH/MM3 Eosinophils # (Auto) 0.0 TH/MM3 Basophils # (Auto) 0.0 TH/MM3 CBC Comment DIFF FINAL Differential Comment Prothrombin Time 12.2 SEC Prothromb Time International 1.1 RATIO Ratio Activated Partial 42.7 SEC Thromboplast Time Total Bilirubin 0.5 MG/DL Aspartate Amino Transf 79 U/L (AST/SGOT) Alanine Aminotransferase 40 U/L (ALT/SGPT) Alkaline Phosphatase 120 U/L Albumin 2.2 GM/DL Imaging Last Impressions Abdomen/Pelvis CT 08/24/16 0342 Signed Impressions: Service Date/Time: Wednesday, August 24, 2016 06:05 - CONCLUSION: There is marked distention and fluid filled stomach and small bowel. There is stool throughout the colon distally. No obvious wall thickening or pneumatosis identified. No visible evidence of colitis or ischemic bowel. Neto Zambrano MD Chest X-Ray 08/24/16 0000 Signed Impressions: Service Date/Time: Wednesday, August 24, 2016 08:52 - CONCLUSION: 1. Left mid lung mass suspected with irregular nodular focus seen. 2. Left lower lobe bronchiectasis and atelectasis. Jacob Sung MD Objective Remarks GENERAL: Patient is 56 yo lying in bed in no acute resp distress SKIN: Warm and dry. HEAD: Normocephalic. EYES: No scleral icterus. No injection or drainage. NECK: Supple, trachea midline. No JVD or lymphadenopathy. CARDIOVASCULAR: Regular rate and rhythm without murmurs, gallops, or rubs. RESPIRATORY: Breath sounds equal bilaterally. No accessory muscle use. GASTROINTESTINAL: Abdomen soft, mild tenderness on palpation MUSCULOSKELETAL: No cyanosis, or edema. Neuro: Awake and alert A/P Assessment and Plan Neuro/Psych: Anxiety disorder NOS Acute abdominal pain management History of migraine headache THC use We'll place on Ativan 0.5 every 6 hours when necessary for anxiety Ofirmev for fever/abdominal pain as needed She received Dilaudid in the ED without issues. Noted morphine allergy. on 0.5-1 mg every 3 hours when necessary pain. CV: Hypertension History of aortic plaque Lactic acidosis Patient had a CT abdomen/pelvis in her records which is described as a mural thrombus with penetrating ulcer in descending distal aorta. Was evaluated by Dr. Pappas. According to patient, believes this is an aortic plaque. No intervention at this time. As needed labetalol/hydralazine/Nitropaste for hypertension Monitor HR and BP keep MAP>65mmHg On NS@84ml/hr. Resp: COPD Tobaccoism Continue with oxygen keep sat > 92% Incentive spirometry while awake Bronchodilators, pulm eval for left lung mass GI: Abdominal pain NOS Obstipation History of constipation Elevated amylase Elevated AST CT abdomen/pelvis 08/23 oral contrast only revealed stemming dilated filled with fluid/contrast. Small bowel distended. Stool throughout the transverse colon/ descending colon. No pneumatosis. No signs of mesenteric ischemia or bowel edema. Evaluated by Dr. Lim/GS. Recommend serial abdominal exacerbations Check KUB abdomen. Continue with bowel regimens ( Senna, Colace, Miralax, Lactulose) Had 3 small BM's overnight. NGT to LIWMS ( 400ml gastric drainage overnight) Monitor LFT's and Amylase level. Endo: Sliding scale insulin if indicated to maintain euglycemia Cortisol level 51.4, TSH: 0.24 Renal: Acute kidney injury - likely prerenal secondary to dehydration Monitor renal function, I/O's, electrolytes replacement as needed Renal function is improving with Cr: 1.22 today from 1.66 On NS@84ml/hr Heme: Leukocytosis..trending down Monitor CBC ID: Continue with abx( Zosyn)monitor for signs of infections ( Fever, WBC) WBC trending down Follow up on BC and urine cx from 08/24 MSK: Currently on bed rest. Access - Utilize peripheral IVs. Prophylaxis - GI - Protonix - DVT - SCD/heparin subcutaneous Will sign off and transfer care to [facility] Level III Eric Potter MD Aug 25, 2016 08:02 Currently on bed rest. Access - Utilize peripheral IVs. Central line if indicated Prophylaxis - GI - Protonix - DVT - SCD/heparin subcutaneous Level III admission Eric Potter MD Aug 25, 2016 08:02
[2016-08-25] MEDS: SODIUM CHLOR 0.9% 1000 ML INJ 1,000 ML IV SCH (08:50)
--- NOTE | 2016-08-25 09:02 | RADRPT ---
EXAM DATE/TIME: 08/25/2016 08:27 [facility] COMPARISON: CT ABDOMEN & PELVIS W/O CONTRAST, August 24, 2016, 6:05. INDICATIONS : Abdominal pain. MEDICAL HISTORY : Chronic obstructive pulmonary disease. SURGICAL HISTORY : Tubal ligation. Lumbar surgery. ENCOUNTER: Initial ACUITY: 1 week PAIN SCORE: 7/10 LOCATION: Bilateral lower quadrant abdomen FINDINGS: Supine view of the abdomen was performed. There is some air filled mildly to moderately dilated loops of small bowel in the mid abdomen. The colon is nondistended. However, compared to the CT scan of the bowel gas distention of the small bowel appears to be improved. Also, on the prior CT the stomach appeared to be distended on this examination the stomach is decompressed with an NG tube.. CONCLUSION: There is mild to moderate gaseous distention of the small bowel which appears to be significantly imp roved compared to the prior CT scan of the abdomen. There is an NG tube in the stomach. Sourav Ward MD on August 25, 2016 at 8:58 Board Certified Radiologist. This report was verified electronically.
[2016-08-25] MEDS: POLYETHYLENE GLYCOL 17 GM PKG PO SCH (09:09)
[2016-08-25] MEDS: PANTOPRAZOLE SODIUM 40 MG VIAL IV SCH (09:09)
[2016-08-25] MEDS: LACTULOSE SYRUP 20 GM/30 ML CUP PO SCH ×4 (09:09→20:09)
[2016-08-25] MEDS: DOCUSATE SODIUM 100 MG/10 ML UDC PO SCH ×2 (09:09→20:08)
[2016-08-25] MEDS: HEPARIN SODIUM - SQ 10,000 UNITS/ML VIAL SQ SCH ×2 (09:10→20:08)
[2016-08-25] MEDS: SODIUM CHLORIDE 0.9% FLUSH 10 ML FLUSH IV FLUSH SCH ×2 (09:10→20:08)
[2016-08-25] MEDS: SENNOSIDES SYRUP 8.8 MG/5 ML CUP PO SCH (09:10)
--- NOTE | 2016-08-25 09:29 | HHI.PR ---
Subjective Subjective Notes stable overnight, no acute issues, received soapsud enema small bm, wbc better, lactate cleared Objective Vitals/I&O Vital Signs Date Time Temp Pulse Resp B/P Pulse Ox O2 Delivery O2 Flow Rate FiO2 08/25/16 09:00 82 18 141/64 97 08/25/16 08:00 98.5 08/25/16 07:15 Room Air 08/25/16 07:11 21 08/24/16 20:00 2.00 Labs Laboratory Tests Test 08/24/16 08/24/16 08/24/16 08/24/16 13:30 15:02 17:03 18:51 Nasal Screen MRSA (PCR) MRSA NOT DETECTED Urine Eosinophils NONE SEEN Lactic Acid Level 0.9 Sodium Level 136 Potassium Level 3.6 Chloride Level 103 Carbon Dioxide Level 24.1 Anion Gap 9 Blood Urea Nitrogen 59 Creatinine 1.66 Estimat Glomerular Filtration 32 Rate Random Glucose 88 Calcium Level 7.3 Protein Corrected Calcium 8.2 Phosphorus Level 4.6 Magnesium Level 3.5 Total Protein 5.4 Thyroid Stimulating Hormone 0.246 3rd Gen Random Cortisol 51.4 Test 08/24/16 08/25/16 23:45 03:26 Lactic Acid Level 0.6 0.6 White Blood Count 15.9 Red Blood Count 3.12 Hemoglobin 9.7 Hematocrit 29.3 Mean Corpuscular Volume 94.2 Mean Corpuscular Hemoglobin 31.2 Mean Corpuscular Hemoglobin 33.2 Concent Red Cell Distribution Width 13.4 Platelet Count 226 Mean Platelet Volume 7.7 Neutrophils (%) (Auto) 85.2 Lymphocytes (%) (Auto) 4.6 Monocytes (%) (Auto) 9.9 Eosinophils (%) (Auto) 0.1 Basophils (%) (Auto) 0.2 Neutrophils # (Auto) 13.5 Lymphocytes # (Auto) 0.7 Monocytes # (Auto) 1.6 Eosinophils # (Auto) 0.0 Basophils # (Auto) 0.0 CBC Comment DIFF FINAL Differential Comment Prothrombin Time 12.2 Prothromb Time International 1.1 Ratio Activated Partial 42.7 Thromboplast Time Sodium Level 140 Potassium Level 3.6 Chloride Level 107 Carbon Dioxide Level 23.9 Anion Gap 9 Blood Urea Nitrogen 48 Creatinine 1.22 Estimat Glomerular Filtration 45 Rate Random Glucose 81 Calcium Level 7.5 Phosphorus Level 3.2 Magnesium Level 3.6 Total Bilirubin 0.5 Aspartate Amino Transf 79 (AST/SGOT) Alanine Aminotransferase 40 (ALT/SGPT) Alkaline Phosphatase 120 Total Protein 5.8 Albumin 2.2 Amylase Level 269 Date/Time Procedure Status Source Growth 08/24/16 09:00 Aerobic Blood Culture Received Blood Peripheral Pending 08/24/16 09:00 Anaerobic Blood Culture Received Blood Peripheral Pending 08/24/16 04:45 Urine Culture Received Urine Catheterized Urine Pending Cardiovascular: Regular Lungs: Clear Abdomen: Other (soft, +ttp no rebound, mild guarding) A/P Assessment and Plan 56-year-old female with abdominal pain, severe constipation, axr shows some improvement, labs trending down PLAN NG sxn ok for small amount of ice chips bowel regimen continue non operative mgnt abdominal exams will follow closely Benjie Lim MD Aug 25, 2016 09:29
--- NOTE | 2016-08-25 11:49 | PD.CONS ---
GI Consult GI Consult Thank you for the consultation, GI full consult dictated. ASSESSMENT/PLAN: 1. Constipation 2. abdominal pain Has already had EGD and Colon recently. 3. N/v 4 . Tortous colon found on colon. PLAN: 1. Clamp and d/c ng tube (pt understands if n/v and distention will replace) 2. Gastrografin enema 3. Then Lactulose 15 ml TID and miralax daily as tolerated. 4. Antiemetics as needed. 5. No urgent plan for endoscopy. It was a pleasure seeing Yoselin Ernandez Thank you for this consult. Entered by: Soraida Reddy MD Aug 25, 2016 11:49
[2016-08-25] MEDS: DEXT 5%-NACL 0.9% 1000 ML INJ 1,000 ML IV SCH (12:00)
[2016-08-25] MEDS: INSULIN NovoLIN REGULAR SUPPLEMENTAL SCALE SQ SCH ×4 (12:00→23:43)
[2016-08-25] MEDS ORDERED: DEXTROSE 50% IN WATER 50 ML VIAL(D50) IV PRN (12:00)
[2016-08-25] MEDS ORDERED: GLUCAGON 1 MG/ML VIAL OTHER PRN (12:00)
[2016-08-25] MEDS ORDERED: DIATRIZOATE MEGLUM/DIATRIZOATE SOD 120 ML BTL (for RAD DIAG) RECTAL ONE (14:20)
--- NOTE | 2016-08-25 14:38 | EKG ---
Date Performed: 08/24/2016 Time Performed: 12:26:27 PTAGE: 56 years EKG: Sinus rhythm NONSPECIFIC T-WAVE ABNORMALITY Since previous tracing, no significant change noted BORDERLINE ECG PREVIOUS TRACING : 06/21/2015 08.22.07 DOCTOR: Molina Boyle Interpretating Date/Time 08/25/2016 14:37:23
--- NOTE | 2016-08-25 15:54 | RADRPT ---
EXAM DATE/TIME: 08/25/2016 14:13 [facility] COMPARISON: No previous studies available for comparison. INDICATIONS : Constipation. FLUORO TIME: 1.7 minutes IMAGE COUNT: 24 CONTRAST: 1. [facility] MEDICAL HISTORY : Chronic obstructive pulmonary disease. SURGICAL HISTORY : Tubal ligation. Lumbar surgery ENCOUNTER: Subsequent ACUITY: 1 month PAIN SCORE: 7/10 LOCATION: Bilateral abdomen FINDINGS: Preliminary film is demonstrates some gaseous distention of the colon. There is stool throughout the colon. There is no evidence of free air. The bony structures are grossly intact.. Under fluoroscopic guidance a Gastrografin enema was performed with free flow of contrast to the ceca l tip. There is good filling of the entire colon. There is a moderate amount of stool noted throughout the c olon. No fixed strictures or mechanical obstruction is demonstrated. No extrinsic mass effect is seen along the bowel wall. There is no evidence of any significant diverticulosis. Post evacuation radiographs demonstrate some retained contrast as well as stool.. CONCLUSION: Moderate stool throughout the colon. Otherwise, unremarkable Gastrografin enema. Sourav Ward MD on August 25, 2016 at 15:49 Board Certified Radiologist. This report was verified electronically.
[2016-08-25] MEDS: BUDESONIDE-FORMOTEROL 80/4.5 MCG INHALER INH SCH (20:08)
[2016-08-26] VITALS (18 sets, daily range): BP systolic 139–208; BP diastolic 64–102; PULSE 65–89; RESP 20–40; TEMP 98.4–99.3; O2SAT 94–99
[2016-08-26] MEDS: PIPERACIL-TAZO 2.25 GM PREMIX 50 ML IV SCH ×4 (01:40→20:43)
[2016-08-26] MEDS: CHLORHEXIDINE GLUCONATE 2 % 1 PACK (2 CLOTHS) TOP SCH (04:00)
[2016-08-26] MEDS: INSULIN NovoLIN REGULAR SUPPLEMENTAL SCALE SQ SCH ×5 (04:00→20:00)
[2016-08-26] MEDS: RESP: ALBUTEROL 2.5 MG/IPRATROPIUM 0.5 MG NEB (SCH) INH ×6 (04:00→23:50)
[2016-08-26] MEDS: DEXT 5%-NACL 0.9% 1000 ML INJ 1,000 ML IV SCH ×2 (04:06→05:50)
[2016-08-26 05:29] LABS: AUTOMATED NEUTROPHIL # 13.8 TH/MM3 (1.8-7.7); BASOPHIL % 0.1 % (0.0-2.0); EOSINOPHIL # 0.1 TH/MM3 (0-0.4); EOSINOPHIL % 0.4 % (0.0-4.0); HEMATOCRIT 27.7 % (35.0-46.0); HEMO FLAGS DIFF FINAL; LYMPH % 7.9 % (9.0-44.0); LYMPHOCYTE # 1.3 TH/MM3 (1.0-4.8); MEAN CORPUSCULAR HEMOGLOBIN 30.8 PG (27.0-34.0); MEAN CORPUSCULAR HGB CONC 32.8 % (32.0-36.0); MONO % 7.4 % (0.0-8.0); NEUT % 84.2 % (16.0-70.0); PLATELET COUNT 223 TH/MM3 (150-450); RED BLOOD COUNT 2.95 MIL/MM3 (4.00-5.30); RED CELL DISTRIBUTION WIDTH 13.6 % (11.6-17.2); WHITE BLOOD COUNT 16.4 TH/MM3 (4.0-11.0)
[2016-08-26] MEDS: HYDROmorphone HCL PF 1 MG/ML VIAL IV PUSH PRN ×3 (05:45→20:44)
[2016-08-26 06:10] LABS: ALKALINE PHOSPHATASE 116 U/L (45-117); ALT (GPT) 44 U/L (10-53); AMYLASE 57 U/L (25-115); ANION GAP 8 MEQ/L (5-15); AST (GOT) 75 U/L (15-37); BICARBONATE 28.5 MEQ/L (21.0-32.0); BLOOD UREA NITROGEN 21 MG/DL (7-18); CHLORIDE 106 MEQ/L (98-107); GLOMERULAR FILTRATION RATE 71 ML/MIN (>89); POTASSIUM 3.2 MEQ/L (3.5-5.1); SODIUM (NA) 142 MEQ/L (136-145); TOTAL BILIRUBIN ADULT 0.4 MG/DL (0.2-1.0)
--- NOTE | 2016-08-26 07:54 | MB ---
cc: BURGESS,SREEKANTH DATE OF 1960 SERVICE DATE 08/25/2016 ENDOSCOPIST Sreekanth Burgess MD PRIMARY UPTWISTER TENDER Nba Linn MD REASON FOR CONSULTATION Constipation. HISTORY OF PRESENT ILLNESS This is a pleasant 56-year-old female who previously underwent endoscopy and colonoscopy which was significant for tortuous colon but she comes into the hospital complaining of abdominal pain and not having a bowel movement for approximately one month, per the patient. She says she has been having issues with this for several months. She had further workup done which included a CT scan showing retained stool and mural thrombus in the distal aorta on a previous CT scan june. Her symptoms have been worsening over the last several days, worsening with abdominal pain, nausea and vomiting and because of this she has not been able to keep any fluids down. Due to this, repeat CT was done showing a dilated contrast-filled stomach and small bowel distended as well as stool noted throughout the transverse and descending colon. She underwent an NG tube with low intermittent suctioning and has been doing reasonably well over the last day or so. He continues to have constipation symptoms, abdominal pain and she was placed on an appropriate bowel regimen, including enemas. She had three small bowel movements overnight. GI was consulted for further workup and management. PAST MEDICAL HISTORY 1. COPD. 2. Diverticulosis. 3. History of rheumatoid arthritis. 4. PAST SURGICAL HISTORY 1. Tubal ligation. 2. Carpal tunnel syndrome. ALLERGIES BIAXIN. DOXYCYCLINE. ERYTHROMYCIN. MORPHINE. VIOXX. MEDICATIONS Please see MAR for complete, accurate list. FAMILY HISTORY Mother with history of lung cancer but no GI malignancies. SOCIAL HISTORY Smokes a half to one pack of cigarettes per day. Occasionally drinks alcohol. REVIEW OF SYSTEMS A 12-point review of systems was obtained by myself and found to be negative or noncontributory except that mentioned in the HPI. PHYSICAL EXAMINATION VITAL SIGNS: 98.2, 82, 162/76, heart rate 82, respirations 16. GENERAL: Alert, oriented. In mild acute distress with an NG tube through the nose. HEENT: Mucosa moist and pink. Extraocular movements are intact. NECK: Supple, nontender. No carotid bruits. No JVD, nodes, or cervical lymphadenopathy noted. CARDIOVASCULAR: Regular rate and rhythm. No murmurs heard. RESPIRATORY: Clear to auscultation. Nonlabored breath sounds. Mild wheezing at the bases. ABDOMEN: Soft, nontender, nondistended. Bowel sounds present in all four quadrants. No periumbilical ecchymosis noted. Hepatosplenomegaly not appreciated. No guarding. GENITOURINARY: No CVA angle tenderness noted. MUSCULOSKELETAL: Upper and lower extremities normal strength. LYMPH NODES: No abnormal lymphadenopathy identified. NEURO: Alert, oriented. No focal deficits. PSYCHIATRIC: Cooperative, appropriate mood and affect. LABORATORY DATA WBC 15.9, hemoglobin 9.7, platelet count 226, sodium 140, potassium 3.6, chloride 107, bicarb 23, BUN 48, creatinine 1.22, AST 79, ALT 40, alk phos 120. IMPRESSION 1. Severe constipation, may be multifactorial which includes slow transit, possibility of medication induced. 2. Nausea and vomiting secondary to above. 3. Possibility of delayed gastric emptying. RECOMMENDATION At that this time the patient's nausea and vomiting have improved, therefore consider clamping and discontinuing NG tube. In regards to constipation, would recommend holding off on significant oral laxatives. I would recommend undergoing a Gastrografin enema with therapeutic and diagnostic purposes. Once she has adequate bowel movements, then would recommend starting MiraLax 17 grams one to two times a day in addition to lactulose 15 mL twice a day. Thank you for allowing me to participate in the care of this patient. We will follow along with you and make recommendations according to the patient's clinical course. MD EMILY Marshall/CIPRIANO /6:32 PM /7:41 AM
[2016-08-26] MEDS: SENNOSIDES SYRUP 8.8 MG/5 ML CUP PO SCH (09:00)
[2016-08-26] MEDS: DOCUSATE SODIUM 100 MG/10 ML UDC PO SCH ×2 (09:00→20:43)
[2016-08-26] MEDS: SODIUM CHLORIDE 0.9% FLUSH 10 ML FLUSH IV FLUSH SCH ×2 (09:00→20:43)
[2016-08-26] MEDS: POLYETHYLENE GLYCOL 17 GM PKG PO SCH (09:00)
[2016-08-26] MEDS: LACTULOSE SYRUP 20 GM/30 ML CUP PO SCH ×4 (09:00→20:43)
[2016-08-26] MEDS: BUDESONIDE-FORMOTEROL 80/4.5 MCG INHALER INH SCH ×2 (09:00→20:43)
[2016-08-26] MEDS: HEPARIN SODIUM - SQ 10,000 UNITS/ML VIAL SQ SCH ×2 (09:07→20:44)
[2016-08-26] MEDS: PANTOPRAZOLE SODIUM 40 MG VIAL IV SCH (09:07)
--- NOTE | 2016-08-26 10:18 | HHI.PR ---
Subjective Remarks bloating sensation, still slight nausea and abdominal pain + flatus- lots - heard if from the outside + BMs with some soft stools Objective Vitals Vital Signs Date Time Temp Pulse Resp B/P Pulse Ox O2 Delivery O2 Flow Rate FiO2 08/26/16 08:09 97 08/26/16 06:00 89 08/26/16 04:00 98.5 89 20 164/78 95 08/26/16 04:00 88 08/26/16 02:00 74 08/26/16 00:00 98.4 84 20 139/64 97 08/26/16 00:00 84 08/25/16 22:00 76 08/25/16 20:00 98.7 92 20 160/75 96 08/25/16 20:00 92 08/25/16 19:00 96 Room Air 08/25/16 18:00 79 08/25/16 16:00 82 08/25/16 16:00 98.2 82 16 162/76 96 08/25/16 14:00 84 08/25/16 12:00 97.4 91 21 141/63 95 08/25/16 12:00 91 I/O 08/25/16 08/25/16 08/25/16 08/26/16 08/26/16 08/26/16 07:00 15:00 23:00 07:00 15:00 23:00 Intake Total 400 ml 611 ml 552 ml 643 ml Output Total 903 ml 575 ml 452 ml 500 ml Balance -503 ml 36 ml 100 ml 143 ml Intake Oral 400 ml IV Total 611 ml 552 ml 643 ml Output Urine Total 900 ml 575 ml 452 ml 500 ml Stool Total 3 ml # Bowel Movements 7 4 Result Diagram: 08/26/16 0417 08/26/16 0417 Imaging Last Impressions Enema w/Water Soluble 08/25/16 0000 Signed Impressions: Service Date/Time: Thursday, August 25, 2016 14:13 - CONCLUSION: Moderate stool throughout the colon. Otherwise, unremarkable Gastrografin enema. Sourav Ward MD Abdomen X-Ray 08/25/16 0000 Signed Impressions: Service Date/Time: Thursday, August 25, 2016 08:27 - CONCLUSION: There is mild to moderate gaseous distention of the small bowel which appears to be significantly improved compared to the prior CT scan of the abdomen. There is an NG tube in the stomach. Sourav Ward MD Abdomen/Pelvis CT 08/24/16 0342 Signed Impressions: Service Date/Time: Wednesday, August 24, 2016 06:05 - CONCLUSION: There is marked distention and fluid filled stomach and small bowel. There is stool throughout the colon distally. No obvious wall thickening or pneumatosis identified. No visible evidence of colitis or ischemic bowel. Neto Zambrano MD Chest X-Ray 08/24/16 0000 Signed Impressions: Service Date/Time: Wednesday, August 24, 2016 08:52 - CONCLUSION: 1. Left mid lung mass suspected with irregular nodular focus seen. 2. Left lower lobe bronchiectasis and atelectasis. Jacob Sung MD Objective Remarks awake and alert, feels uncomfortable anicteric lungs no rales or wheezes regular rhythm abdomen- distended, very tympanitic, + tenderness on palpation all over, few bowel sounds extremities- moves all equally Urinary Catheter: Yes Assessment to: Continue A/P Problem List: (1) Atherosclerotic plaque ICD Code: I70.90 Status: Acute (2) Obstipation ICD Code: K59.00 Status: Acute (3) Elevated AST (SGOT) ICD Code: R74.0 Status: Acute (4) COPD (chronic obstructive pulmonary disease) ICD Code: J44.9 Status: Acute (5) Lactic acidosis ICD Code: E87.2 Status: Acute (6) Elevated amylase ICD Code: R74.8 Status: Acute (7) Tetrahydrocannabinol (THC) use disorder, mild, abuse ICD Code: F12.10 Status: Acute (8) Leukocytosis ICD Code: D72.829 Status: Acute (9) Acute kidney injury ICD Code: N17.9 Status: Acute (10) Abdominal pain ICD Code: R10.9 Status: Acute (11) Body mass index less than 16.5 ICD Code: Z68.1 Status: Acute (12) Tobacco abuse ICD Code: Z72.0 Status: Chronic (13) Anxiety ICD Code: F41.9 Status: Chronic (14) Neutrophilic leukocytosis ICD Code: D72.9 Status: Acute (15) Dyslipidemia ICD Code: E78.5 Status: Acute (16) Cachectic ICD Code: R64 Status: Acute (17) SIRS (systemic inflammatory response syndrome) ICD Code: R65.10 Status: Acute Assessment and Plan 56 years old female presenting with Sepsis/SIRs secondary to acute abdominal process- severe constipation Persistent leukocytosis -lactic acid level down. -Continue IVF - GI ff/GS - On antibiotics Acute abdomen- secondary to severe constipation- ? History of pain meds use- per staff- patient denies this at bedside -recheck Xray -now having BM b - continue IVF - consider replacing NGT if vomiting recurs - GI and GS ff closely along with us Acute Kidney Injury Hypokalemia -continue IVF - replace with IV Kcl History of PUD -on PPI History of Anxiety disorder - appears anxious when examined but observed to be calm and sleeping when you walked in and monitored from outside d/w staff Problem Qualifiers (1) COPD (chronic obstructive pulmonary disease): Qualified Code: J44.9 - Chronic obstructive pulmonary disease, unspecified COPD type (2) Leukocytosis: Qualified Code: D72.825 - Bandemia (3) Abdominal pain: Qualified Code: R10.30 - Lower abdominal pain Cade Harper MD Aug 26, 2016 10:18
--- NOTE | 2016-08-26 10:19 | HHI.PR ---
Objective Vitals Result Diagram: 08/26/16 0417 08/26/16 0417 Cade Harper MD Aug 26, 2016 10:19 08/26/16 06:00 89 08/26/16 04:00 98.5 89 20 164/78 95 08/26/16 04:00 88 08/26/16 02:00 74 08/26/16 00:00 98.4 84 20 139/64 97 08/26/16 00:00 84 08/25/16 22:00 76 08/25/16 20:00 98.7 92 20 160/75 96 08/25/16 20:00 92 08/25/16 19:00 96 Room Air 08/25/16 18:00 79 08/25/16 16:00 82 08/25/16 16:00 98.2 82 16 162/76 96 08/25/16 14:00 84 08/25/16 12:00 97.4 91 21 141/63 95 08/25/16 12:00 91 I/O 08/25/16 08/25/16 08/25/16 08/26/16 08/26/16 08/26/16 07:00 15:00 23:00 07:00 15:00 23:00 Intake Total 400 ml 611 ml 552 ml 643 ml Output Total 903 ml 575 ml 452 ml 500 ml Balance -503 ml 36 ml 100 ml 143 ml Intake Oral 400 ml IV Total 611 ml 552 ml 643 ml Output Urine Total 900 ml 575 ml 452 ml 500 ml Stool Total 3 ml # Bowel Movements 7 4 Result Diagram: 08/26/16 0417 08/26/16 0417 Objective Remarks awake and alert, feels uncomfortable anicteric lungs no rales or wheezes regular rhythm abdomen- distended, very tympanitic, + tenderness on palpation all over, few bowel sounds extremities- moves all equally A/P Problem List: (1) Atherosclerotic plaque ICD Code: I70.90 Status: Acute (2) Obstipation ICD Code: K59.00 Status: Acute (3) Elevated AST (SGOT) ICD Code: R74.0 Status: Acute (4) COPD (chronic obstructive pulmonary disease) ICD Code: J44.9 Status: Acute (5) Lactic acidosis ICD Code: E87.2 Status: Acute (6) Elevated amylase ICD Code: R74.8 Status: Acute (7) Tetrahydrocannabinol (THC) use disorder, mild, abuse ICD Code: F12.10 Status: Acute (8) Leukocytosis ICD Code: D72.829 Status: Acute (9) Acute kidney injury ICD Code: N17.9 Status: Acute (10) Abdominal pain ICD Code: R10.9 Status: Acute (11) Body mass index less than 16.5 ICD Code: Z68.1 Status: Acute (12) Tobacco abuse ICD Code: Z72.0 Status: Chronic (13) Anxiety ICD Code: F41.9 Status: Chronic (14) Neutrophilic leukocytosis ICD Code: D72.9 Status: Acute (15) Dyslipidemia ICD Code: E78.5 Status: Acute (16) Cachectic ICD Code: R64 Status: Acute (17) SIRS (systemic inflammatory response syndrome) ICD Code: R65.10 Status: Acute Assessment and Plan 56 years old female Neuro/Psych: Anxiety disorder NOS Acute abdominal pain management History of migraine headache THC use We'll place on Ativan 0.5 every 6 hours when necessary for anxiety Ofirmev for fever/abdominal pain as needed She received Dilaudid in the ED without issues. Noted morphine allergy. on 0.5-1 mg every 3 hours when necessary pain. CV: Hypertension History of aortic plaque Lactic acidosis Patient had a CT abdomen/pelvis in her records which is described as a mural thrombus with penetrating ulcer in descending distal aorta. Was evaluated by Dr. Pappas. According to patient, believes this is an aortic plaque. No intervention at this time. As needed labetalol/hydralazine/Nitropaste for hypertension Monitor HR and BP keep MAP>65mmHg On NS@84ml/hr. Resp: COPD Tobaccoism Continue with oxygen keep sat > 92% Incentive spirometry while awake Bronchodilators, pulm eval for left lung mass GI: Abdominal pain NOS Obstipation History of constipation Elevated amylase Elevated AST CT abdomen/pelvis 08/23 oral contrast only revealed stemming dilated filled with fluid/contrast. Small bowel distended. Stool throughout the transverse colon/ descending colon. No pneumatosis. No signs of mesenteric ischemia or bowel edema. Evaluated by Dr. Lim/FLEX. Recommend serial abdominal exacerbations Check KUB abdomen. Continue with bowel regimens ( Senna, Colace, Miralax, Lactulose) Had 3 small BM's overnight. NGT to LIWMS ( 400ml gastric drainage overnight) Monitor LFT's and Amylase level. Endo: Sliding scale insulin if indicated to maintain euglycemia Cortisol level 51.4, TSH: 0.24 Renal: Acute kidney injury - likely prerenal secondary to dehydration Monitor renal function, I/O's, electrolytes replacement as needed Renal function is improving with Cr: 1.22 today from 1.66 On NS@84ml/hr Heme: Leukocytosis..trending down Monitor CBC ID: Continue with abx( Zosyn)monitor for signs of infections ( Fever, WBC) WBC trending down Follow up on BC and urine cx from 08/24 MSK: Currently on bed rest. Access - Utilize peripheral IVs. Prophylaxis - GI - Protonix - DVT - SCD/heparin subcutaneous Will sign off and transfer care to [facility] Level III Eric Potter MD Aug 25, 2016 08:02 Problem Qualifiers (1) COPD (chronic obstructive pulmonary disease): Qualified Code: J44.9 - Chronic obstructive pulmonary disease, unspecified COPD type (2) Leukocytosis: Qualified Code: D72.825 - Bandemia (3) Abdominal pain: Qualified Code: R10.30 - Lower abdominal pain Cade Harper MD Aug 26, 2016 10:19
--- NOTE | 2016-08-26 10:48 | HHI.PR ---
Subjective Subjective Notes feels and looks miserable. Abdomen diffusely distended and tender. Pulled NG out last night, admitted it made her feel a little better. Having small diarrheal bms with little fecal material. Objective Vitals/I&O Vital Signs Date Time Temp Pulse Resp B/P Pulse Ox O2 Delivery O2 Flow Rate FiO2 08/26/16 08:09 97 08/26/16 06:00 89 08/26/16 04:00 98.5 20 164/78 08/25/16 19:00 Room Air 08/25/16 07:11 21 08/24/16 20:00 2.00 Labs Laboratory Tests Test 08/25/16 08/26/16 15:34 04:17 Lactic Acid Level 0.8 White Blood Count 16.4 Red Blood Count 2.95 Hemoglobin 9.1 Hematocrit 27.7 Mean Corpuscular Volume 94.0 Mean Corpuscular Hemoglobin 30.8 Mean Corpuscular Hemoglobin 32.8 Concent Red Cell Distribution Width 13.6 Platelet Count 223 Mean Platelet Volume 7.8 Neutrophils (%) (Auto) 84.2 Lymphocytes (%) (Auto) 7.9 Monocytes (%) (Auto) 7.4 Eosinophils (%) (Auto) 0.4 Basophils (%) (Auto) 0.1 Neutrophils # (Auto) 13.8 Lymphocytes # (Auto) 1.3 Monocytes # (Auto) 1.2 Eosinophils # (Auto) 0.1 Basophils # (Auto) 0.0 CBC Comment DIFF FINAL Differential Comment Sodium Level 142 Potassium Level 3.2 Chloride Level 106 Carbon Dioxide Level 28.5 Anion Gap 8 Blood Urea Nitrogen 21 Creatinine 0.83 Estimat Glomerular Filtration 71 Rate Random Glucose 97 Calcium Level 7.6 Total Bilirubin 0.4 Aspartate Amino Transf 75 (AST/SGOT) Alanine Aminotransferase 44 (ALT/SGPT) Alkaline Phosphatase 116 Total Protein 5.7 Albumin 2.2 Amylase Level 57 Date/Time Procedure Status Source Growth 08/24/16 09:00 Aerobic Blood Culture - Preliminary Resulted Blood Peripheral NO GROWTH IN 1 DAY 08/24/16 09:00 Anaerobic Blood Culture - Preliminary Resulted Blood Peripheral NO GROWTH IN 1 DAY 08/24/16 04:45 Urine Culture - Final Complete Urine Catheterized Urine NO GROWTH IN 48 HOURS. Abdomen: Other (distended, tympanitic, no hernias. Tender diffusely.) A/P Assessment and Plan abdominal distention, appears gaseous now. H/O constipation for a month? started after colonoscopy, claims she had no GI problems before. I reviewed her labs, images and I do not see a surgical problem that I can fix. I recommend decompression from above and below, consider decompression by GI. Will follow closely, be available should a surgical problem be identified. Carlos Manuel Ball MD Aug 26, 2016 10:48
--- NOTE | 2016-08-26 10:50 | RADRPT ---
EXAM DATE/TIME: 08/26/2016 10:24 [place] COMPARISON: ABDOMEN KUB ONLY, August 25, 2016, 8:27. GASTROGRAFIN ENEMA, August 25, 2016, 14:13. INDICATIONS : Free air. Lower abdominal pain. MEDICAL HISTORY : Chronic obstructive pulmonary disease. SURGICAL HISTORY : Lumbar surgery. Tubal ligation. ENCOUNTER: Subsequent ACUITY: 1 month PAIN SCORE: 9/10 LOCATION: Bilateral lower quadrant abdomen. FINDINGS: Supine and upright views of the abdomen obtained portably demonstrate no evidence for free intraperit spencer air. There is air seen throughout mildly distended small and large bowel with no discrete trans ition point to suggest obstruction. The osseous structures are intact. CONCLUSION: No definite evidence for free air. Jacob Sung MD on August 26, 2016 at 10:46 Board Certified Radiologist. This report was verified electronically.
[2016-08-26] MEDS: D5-NS + KCL 20 MEQ INJ 1,000 ML IV SCH ×2 (11:12→22:33)
[2016-08-26] MEDS: POTASSIUM CHLOR 10 MEQ PREMIX 100 ML IV SCH ×3 (11:35→14:48)
--- NOTE | 2016-08-26 12:42 | MB ---
cc: KATHY ANN DATE OF CONSULTATION 08/25/2016. REASON FOR CONSULTATION COPD and left lung density. HISTORY OF PRESENT ILLNESS This is a 56-year-old lady with a history of COPD and chronic bronchitis who was admitted through the emergency room with abdominal pain and obstipation. The patient has a longstanding history of COPD as well as a chronic left lung density with chronic fibrotic scarring, has been a smoker for over 40 years and continues to smoke. She was seen in the emergency room and had abdominal distension and was also complaining of constipation since almost a month and a CT of the abdomen and pelvis revealed stool in the small bowel and mural thrombus in the distal aorta. The patient also has a cough, she is wheezing and she is orthopneic. Her O2 saturations are low. She denied any hemoptysis, fevers or chills. Upon admission she was having elevated lactic acidosis and was suspected to have sepsis as well with leukocytosis and acute kidney injury and dehydration. She has now been hydrated. She is on 2 liters of oxygen. She denies any significant shortness of breath but still has a cough with mild wheezing. PAST HISTORY 1. History of COPD as mentioned before. 2. History of pneumonia on the left side. 3. History of anxiety disorder and depression. 4. Protein calorie malnutrition. HABITS The patient is a regular smoker of one pack per day for over 40 years, continues to smoke. No significant alcohol use. She has used THC in the past. ALLERGIES DOXYCYCLINE BIAXIN. MORPHINE. VIOXX CHEESE. PAST SURGICAL HISTORY 1. Lumbar laminectomy. 2. Bronchoscopy. 3. Colonoscopy. 4. Tubal ligation. 5. Carpal tunnel release. MEDICATION LIST 1. Trazodone. 2. Zoloft. 3. Atarax. 4. Ventolin inhaler. FAMILY HISTORY Mother of lung cancer, Father of old age. SYSTEMS REVIEW The patient has lost weight. She has dizziness, postnasal drip, cough, wheezing. She has abdominal distension, constipation. She has urinary frequency; denies dysuria. She has joint pains of her extremities. No leg swelling. No skin rash. She does has depression and anxiety. PHYSICAL EXAMINATION GENERAL: This thinly built, middle-aged white female who is anxious and alert, pale and mildly dyspneic. VITAL SIGNS: Blood pressure 148/80, pulse is 105, respirations 22, temperature 98.2. HEENT: Head normocephalic. Pupils are reactive. Sclerae are injected. Tongue is moist. Throat is mildly injected. NECK: Supple. No bruits, lymphadenopathy or thyromegaly. CHEST: Equal movements with an increased AP diameter with diffuse wheezes bilaterally. Occasional crackles in the left lung field. HEART: The heart sounds are regular S1-S2. No murmur. No S3. ABDOMEN: Soft, protuberant. No mass. No organomegaly, but mild lower quadrant tenderness. Bowel sounds are active. EXTREMITIES: No peripheral edema. There is muscle wasting of the extremities. NEUROLOGICALLY: She is moving all her extremities. Reflexes are 1+. There is no gross motor deficit. Cranial nerves are grossly intact. The patient is awake and oriented, somewhat anxious. Skin was dry and scaly. RECTAL EXAM: Deferred. IMPRESSION 1. Chronic constipation. 2. Obstipation. 3. COPD with acute exacerbation. 4. Acute kidney injury, resolved. 5. Chronic left lung density with fibrotic scarring and bronchiectasis. 6. Nicotine dependency. 7. Hypertension. PLAN 1. The patient has been placed on O2 at 2 liters, nebulized DuoNeb solution added q.i.d. and the patient will also be placed on Advair HFA 115/21 two puffs twice per day. 2. Repeat chest x-ray to be done. 3. We will get a pulmonary function study when she is clinically stable. 4. GI evaluation is being conducted for constipation. 5. Follow-up CT scan of the chest to be done next month. Thank you Dr. Potter for this consultation. MD NA Muñoz/CIPRIANO /9:38 AM /12:30 PM
--- NOTE | 2016-08-26 13:03 | HHI.PR ---
Subjective Remarks Alert and C/O abdominal pain. Has had a Bowel Movement. No SOB at rest. Objective Vital Signs Date Time Temp Pulse Resp B/P Pulse Ox O2 Delivery O2 Flow Rate FiO2 08/26/16 08:09 97 08/26/16 06:00 89 08/26/16 04:00 98.5 89 20 164/78 95 08/26/16 04:00 88 08/26/16 02:00 74 08/26/16 00:00 98.4 84 20 139/64 97 08/26/16 00:00 84 08/25/16 22:00 76 08/25/16 20:00 98.7 92 20 160/75 96 08/25/16 20:00 92 08/25/16 19:00 96 Room Air 08/25/16 18:00 79 08/25/16 16:00 82 08/25/16 16:00 98.2 82 16 162/76 96 08/25/16 14:00 84 I/O 08/25/16 08/25/16 08/25/16 08/26/16 08/26/16 08/26/16 07:00 15:00 23:00 07:00 15:00 23:00 Intake Total 400 ml 611 ml 552 ml 643 ml Output Total 903 ml 575 ml 452 ml 500 ml Balance -503 ml 36 ml 100 ml 143 ml Intake Oral 400 ml IV Total 611 ml 552 ml 643 ml Output Urine Total 900 ml 575 ml 452 ml 500 ml Stool Total 3 ml # Bowel Movements 7 4 Result Diagram: 08/26/16 0417 08/26/16 0417 Objective Remarks GENERAL: This thinly built, middle-aged white female who is alert, pale and mildly dyspneic. HEENT: Head normocephalic. Pupils are reactive. Sclerae are injected. Tongue is moist. Throat is dry. NECK: Supple. No bruits, lymphadenopathy or thyromegaly. CHEST: Equal movements with an increased AP diameter with diffuse wheezes bilaterally. Occasional crackles in the left lung field. HEART: The heart sounds are regular S1-S2. No murmur. No S3. ABDOMEN: Soft, protuberant. No mass. No organomegaly, but mild lower quadrant tenderness. Bowel sounds are active. EXTREMITIES: No peripheral edema. There is muscle wasting of the extremities. NEUROLOGICALLY: She is moving all her extremities. Reflexes are 1+. There is no gross motor deficit. Cranial nerves are grossly intact. The patient is awake and oriented. Skin was dry and scaly. RECTAL EXAM: Deferred. Assessment and Plan Assessment and Plan IMPRESSION 1. Chronic constipation. 2. Obstipation. 3. COPD with acute exacerbation. 4. Acute kidney injury, resolved. 5. Chronic left lung density with fibrotic scarring and bronchiectasis. 6. Nicotine dependency. 7. Hypertension. Plan : 1. Continue O2 at 2 L 2. Nebs qid , duoneb 3. Decompress abdomen 4. Continue antibiotics. 5. CBC,BMP in am 6. CT Chest Next [facility] Nahum Ross MD Aug 26, 2016 13:03
--- NOTE | 2016-08-26 13:09 | HHI.GIFU ---
GI Follow-up Note Consult Follow-up Subjective: Patient laying in bed comfortably, sleeping. Woke her up, c/o mild nausea and pain. Reviewed, imaging, and labs. Objective: PHYSICAL EXAMINATION: Vitals signs stable No fever HEENT: Pupils round and reactive to light; normocephalic; atraumatic; no jaundice. Throat is clear. NECK: Neck is supple, no JVD, no lymphadenopathy. CHEST: Chest is clear to auscultation and percussion. CARDIAC: Regular rate and rhythm with no murmur gallop or rubs. ABDOMEN: Soft, mild tender. pt tenses her abdomen when exam. bs present, no rebound, non distended. EXTREMITIES: No clubbing, cyanosis, or edema. SKIN: Normal; no rash; no jaundice. INSOLE REINFORCER: No focal deficits; alert and oriented times three. Available Data (labs, X- Rays, Procedues) : ASSESSMENT/PLAN: 1. Constipation 2. Abdominal distention improving 3. COPD 4. Abdominal pain - improving. PLAN: 1. Start Diet with clear liquid as tolerated 2. START Miralax 17 once per day 3. replace electrolytes 4. No objection to transfer out of ICU. It was a pleasure seeing Yoselin Ernandez Thank you for this consult. Entered by: Soraida Reddy MD Aug 26, 2016 13:09
[2016-08-26] MEDS ORDERED: HYDROmorphone HCL PF 1 MG/ML VIAL IV PUSH PRN ×2 (17:45→20:00)
[2016-08-27] VITALS (11 sets, daily range): BP systolic 139–167; BP diastolic 64–94; PULSE 67–97; RESP 16–38; TEMP 98.6–99.1; O2SAT 92–98
[2016-08-27] MEDS: PIPERACIL-TAZO 2.25 GM PREMIX 50 ML IV SCH ×4 (01:24→20:05)
[2016-08-27] MEDS: INSULIN NovoLIN REGULAR SUPPLEMENTAL SCALE SQ SCH ×6 (04:00→20:00)
[2016-08-27] MEDS: CHLORHEXIDINE GLUCONATE 2 % 1 PACK (2 CLOTHS) TOP SCH (04:00)
[2016-08-27] MEDS: RESP: ALBUTEROL 2.5 MG/IPRATROPIUM 0.5 MG NEB (SCH) INH ×5 (04:00→19:42)
[2016-08-27] MEDS: HYDROmorphone HCL PF 1 MG/ML VIAL IV PUSH PRN ×2 (04:29→20:11)
[2016-08-27] MEDS: SODIUM CHLORIDE 0.9% FLUSH 10 ML FLUSH IV FLUSH SCH ×2 (09:00→20:08)
[2016-08-27] MEDS: BUDESONIDE-FORMOTEROL 80/4.5 MCG INHALER INH SCH ×2 (09:00→20:06)
[2016-08-27] MEDS: LACTULOSE SYRUP 20 GM/30 ML CUP PO SCH ×4 (09:11→20:09)
[2016-08-27] MEDS: DOCUSATE SODIUM 100 MG/10 ML UDC PO SCH ×2 (09:11→20:08)
[2016-08-27] MEDS: SENNOSIDES SYRUP 8.8 MG/5 ML CUP PO SCH (09:11)
[2016-08-27] MEDS: POLYETHYLENE GLYCOL 17 GM PKG PO SCH (09:11)
[2016-08-27] MEDS: HEPARIN SODIUM - SQ 10,000 UNITS/ML VIAL SQ SCH ×2 (09:11→20:09)
[2016-08-27] MEDS: PANTOPRAZOLE SODIUM 40 MG VIAL IV SCH (09:11)
[2016-08-27] MEDS: ONDANSETRON HCL 4 MG/2 ML VIAL IV PRN (09:19)
--- NOTE | 2016-08-27 10:55 | HHI.GIFU ---
Subjective Remarks alert Nad.... liquid stools some abdominal pain taking marcotic analgesics prn Objective Vitals I&O Vital Signs Date Time Temp Pulse Resp B/P Pulse Ox O2 Delivery O2 Flow Rate FiO2 08/27/16 07:59 94 21 08/27/16 04:59 16 08/27/16 04:00 98.7 97 18 163/77 95 08/27/16 00:00 99.1 75 16 139/65 93 08/26/16 20:00 94 21 08/26/16 20:00 99.3 81 20 153/72 95 08/26/16 19:00 Room Air 08/26/16 16:10 80 33 165/78 98 08/26/16 16:10 80 08/26/16 16:01 83 35 208/95 99 08/26/16 16:01 83 08/26/16 16:00 86 33 98 08/26/16 16:00 86 08/26/16 15:00 81 08/26/16 15:00 81 08/26/16 15:00 81 34 177/94 97 08/26/16 14:00 74 08/26/16 14:00 74 08/26/16 14:00 74 22 163/74 96 08/26/16 13:00 76 24 151/77 97 08/26/16 13:00 76 08/26/16 13:00 76 08/26/16 13:00 76 24 151/77 97 08/26/16 13:00 76 08/26/16 12:01 84 08/26/16 12:01 84 08/26/16 12:01 84 40 153/92 97 08/26/16 12:01 84 40 153/92 97 08/26/16 12:01 84 08/26/16 12:00 81 38 97 08/26/16 12:00 81 08/26/16 12:00 81 08/26/16 12:00 81 08/26/16 12:00 81 38 97 I/O 08/26/16 08/26/16 08/26/16 08/27/16 08/27/16 08/27/16 07:00 15:00 23:00 07:00 15:00 23:00 Intake Total 643 ml 1071 ml 672 ml 425 ml Output Total 500 ml 350 ml 350 ml 450 ml Balance 143 ml 721 ml 322 ml -25 ml IV Total 643 ml 1071 ml 672 ml 425 ml Output Urine Total 500 ml 350 ml 350 ml 450 ml # Bowel Movements 4 4 0 2 Laboratory Laboratory Tests Test 08/24/16 08/24/16 08/24/16 08/24/16 01:40 04:45 09:00 13:30 Differential Total Cells 100 Counted Neutrophils % (Manual) 61 % Band Neutrophils % 29 % Lymphocytes % 3 % Monocytes % 7 % Neutrophils # (Manual) 26.5 TH/MM3 Platelet Estimate NORMAL Platelet Morphology Comment NORMAL Red Cell Morphology Comment NORMAL Lipase 69 U/L Urine Color DARK-YELLOW Urine Turbidity HAZY Urine pH 5.0 Urine Specific [place] 1.022 Urine Protein 30 mg/dL Urine Glucose (UA) NEG mg/dL Urine Ketones NEG mg/dL Urine Occult Blood SMALL Urine Nitrite NEG Urine Bilirubin NEG Urine Urobilinogen 2.0 MG/DL Urine Leukocyte Esterase NEG Urine RBC 1 /hpf Urine WBC 1 /hpf Urine Squamous Epithelial 4 /hpf Cells Urine Amorphous Sediment RARE Urine Bacteria OCC /hpf Urine Hyaline Casts 7 /lpf Urine Mucus FEW /lpf Microscopic Urinalysis Comment CATH-CULTURE IND Urine Random Creatinine 107.2 MG/DL Urine Random Sodium 52 MEQ/L Total Creatine Kinase 513 U/L Creatine Kinase MB 16.9 NG/ML Creatine Kinase MB % 3.3 % Troponin I LESS THAN 0.02 NG/ML Nasal Screen MRSA (PCR) MRSA NOT DETECTED Test 08/24/16 08/24/16 08/25/16 08/25/16 15:02 18:51 03:26 15:34 Urine Eosinophils NONE SEEN /HPF Protein Corrected Calcium 8.2 MG/DL Thyroid Stimulating Hormone 0.246 uIU/ML 3rd Gen Random Cortisol 51.4 MCG/DL Prothrombin Time 12.2 SEC Prothromb Time International 1.1 RATIO Ratio Activated Partial 42.7 SEC Thromboplast Time Phosphorus Level 3.2 MG/DL Magnesium Level 3.6 MG/DL Lactic Acid Level 0.8 mmol/L Test 08/26/16 04:17 White Blood Count 16.4 TH/MM3 Red Blood Count 2.95 MIL/MM3 Hemoglobin 9.1 GM/DL Hematocrit 27.7 % Mean Corpuscular Volume 94.0 FL Mean Corpuscular Hemoglobin 30.8 PG Mean Corpuscular Hemoglobin 32.8 % Concent Red Cell Distribution Width 13.6 % Platelet Count 223 TH/MM3 Mean Platelet Volume 7.8 FL Neutrophils (%) (Auto) 84.2 % Lymphocytes (%) (Auto) 7.9 % Monocytes (%) (Auto) 7.4 % Eosinophils (%) (Auto) 0.4 % Basophils (%) (Auto) 0.1 % Neutrophils # (Auto) 13.8 TH/MM3 Lymphocytes # (Auto) 1.3 TH/MM3 Monocytes # (Auto) 1.2 TH/MM3 Eosinophils # (Auto) 0.1 TH/MM3 Basophils # (Auto) 0.0 TH/MM3 CBC Comment DIFF FINAL Differential Comment Sodium Level 142 MEQ/L Potassium Level 3.2 MEQ/L Chloride Level 106 MEQ/L Carbon Dioxide Level 28.5 MEQ/L Anion Gap 8 MEQ/L Blood Urea Nitrogen 21 MG/DL Creatinine 0.83 MG/DL Estimat Glomerular Filtration 71 ML/MIN Rate Random Glucose 97 MG/DL Calcium Level 7.6 MG/DL Total Bilirubin 0.4 MG/DL Aspartate Amino Transf 75 U/L (AST/SGOT) Alanine Aminotransferase 44 U/L (ALT/SGPT) Alkaline Phosphatase 116 U/L Total Protein 5.7 GM/DL Albumin 2.2 GM/DL Amylase Level 57 U/L Date/Time Procedure Status Source Growth 08/24/16 09:00 Aerobic Blood Culture - Preliminary Resulted Blood Peripheral NO GROWTH IN 2 DAYS 08/24/16 09:00 Anaerobic Blood Culture - Preliminary Resulted Blood Peripheral NO GROWTH IN 2 DAYS 08/24/16 04:45 Urine Culture - Final Complete Urine Catheterized Urine NO GROWTH IN 48 HOURS. Imaging Last Impressions Abdomen X-Ray 08/26/16 1013 Signed Impressions: Service Date/Time: Friday, August 26, 2016 10:24 - CONCLUSION: No definite evidence for free air. Jacob Sung MD Enema w/Water Soluble 08/25/16 0000 Signed Impressions: Service Date/Time: Thursday, August 25, 2016 14:13 - CONCLUSION: Moderate stool throughout the colon. Otherwise, unremarkable Gastrografin enema. Sourav Ward MD Abdomen/Pelvis CT 08/24/16 0342 Signed Impressions: Service Date/Time: Wednesday, August 24, 2016 06:05 - CONCLUSION: There is marked distention and fluid filled stomach and small bowel. There is stool throughout the colon distally. No obvious wall thickening or pneumatosis identified. No visible evidence of colitis or ischemic bowel. Neto Zambrano MD Chest X-Ray 08/24/16 0000 Signed Impressions: Service Date/Time: Wednesday, August 24, 2016 08:52 - CONCLUSION: 1. Left mid lung mass suspected with irregular nodular focus seen. 2. Left lower lobe bronchiectasis and atelectasis. Jacob Sung MD Physical Exam CHEST: Chest is clear to auscultation and percussion. CARDIAC: Regular rate and rhythm with no murmur gallop or rubs. ABDOMEN: Soft, mild distention and tympanic, mild diffuse tenderness no rebound ..; bowel sounds are present in all four quadrants. EXTREMITIES: No clubbing, cyanosis, or edema. SKIN: Normal; no rash; no jaundice. Assessment and Plan Assessment: (1) Abdominal pain (2) Constipation Plan Have added phazyme therapy along w flagyl for abdominal bloating....narcotic analgesics will contribute to this. also need to correct electrolye problems......Would f/u abdominal films and continue present management....pt may benefit from Linzess after d/c... Problem Qualifiers (1) Abdominal pain: Qualified Code: R10.30 - Lower abdominal pain (2) Constipation: Qualified Code: K59.04 - Chronic idiopathic constipation Kristofer Moreno MD Aug 27, 2016 10:55
[2016-08-27] MEDS: D5-NS + KCL 20 MEQ INJ 1,000 ML IV SCH (11:11)
[2016-08-27 14:26] LABS: AUTOMATED NEUTROPHIL # 8.5 TH/MM3 (1.8-7.7); BASOPHIL % 0.2 % (0.0-2.0); EOSINOPHIL # 0.1 TH/MM3 (0-0.4); EOSINOPHIL % 0.7 % (0.0-4.0); HEMATOCRIT 27.5 % (35.0-46.0); HEMO FLAGS DIFF FINAL; LYMPH % 13.3 % (9.0-44.0); LYMPHOCYTE # 1.5 TH/MM3 (1.0-4.8); MEAN CELL VOLUME 94.7 FL (80.0-100.0); MEAN CORPUSCULAR HEMOGLOBIN 30.9 PG (27.0-34.0); MEAN CORPUSCULAR HGB CONC 32.6 % (32.0-36.0); MONO % 10.1 % (0.0-8.0); NEUT % 75.7 % (16.0-70.0); PLATELET COUNT 218 TH/MM3 (150-450); RED CELL DISTRIBUTION WIDTH 14.2 % (11.6-17.2); WHITE BLOOD COUNT 11.3 TH/MM3 (4.0-11.0)
[2016-08-27] MEDS: SIMETHICONE 125 MG CHEWABLE TAB PO SCH ×2 (14:41→22:22)
[2016-08-27] MEDS: metroNIDAZOLE 250 MG TAB PO SCH (14:41)
[2016-08-27 14:57] LABS: BICARBONATE 25.2 MEQ/L (21.0-32.0); POTASSIUM 3.7 MEQ/L (3.5-5.1)
--- NOTE | 2016-08-27 15:46 | HHI.PR ---
Subjective Remarks patient now having BMs- soft loose stools- brown tolerating clears Objective Vitals Vital Signs Date Time Temp Pulse Resp B/P Pulse Ox O2 Delivery O2 Flow Rate FiO2 08/27/16 12:00 98.6 08/27/16 09:00 96 38 167/64 92 08/27/16 08:00 67 25 150/69 95 08/27/16 07:59 94 21 08/27/16 07:00 Room Air 08/27/16 04:59 16 08/27/16 04:00 98.7 97 18 163/77 95 08/27/16 00:00 99.1 75 16 139/65 93 08/26/16 20:00 94 21 08/26/16 20:00 99.3 81 20 153/72 95 08/26/16 19:00 Room Air 08/26/16 16:10 80 33 165/78 98 08/26/16 16:10 80 08/26/16 16:01 83 35 208/95 99 08/26/16 16:01 83 08/26/16 16:00 86 33 98 08/26/16 16:00 86 I/O 08/26/16 08/26/16 08/26/16 08/27/16 08/27/16 08/27/16 07:00 15:00 23:00 07:00 15:00 23:00 Intake Total 643 ml 1071 ml 672 ml 425 ml 866 ml Output Total 500 ml 350 ml 350 ml 450 ml 350 ml Balance 143 ml 721 ml 322 ml -25 ml 516 ml Intake Oral 340 ml IV Total 643 ml 1071 ml 672 ml 425 ml 526 ml Output Urine Total 500 ml 350 ml 350 ml 450 ml 350 ml # Bowel Movements 4 4 0 2 6 Result Diagram: 08/27/16 1355 08/27/16 1355 Imaging Last Impressions Abdomen X-Ray 08/26/16 1013 Signed Impressions: Service Date/Time: Friday, August 26, 2016 10:24 - CONCLUSION: No definite evidence for free air. Jacob Sung MD Enema w/Water Soluble 08/25/16 0000 Signed Impressions: Service Date/Time: Thursday, August 25, 2016 14:13 - CONCLUSION: Moderate stool throughout the colon. Otherwise, unremarkable Gastrografin enema. Sourav Ward MD Abdomen/Pelvis CT 08/24/16 0342 Signed Impressions: Service Date/Time: Wednesday, August 24, 2016 06:05 - CONCLUSION: There is marked distention and fluid filled stomach and small bowel. There is stool throughout the colon distally. No obvious wall thickening or pneumatosis identified. No visible evidence of colitis or ischemic bowel. Neto Zambrano MD Chest X-Ray 08/24/16 0000 Signed Impressions: Service Date/Time: Wednesday, August 24, 2016 08:52 - CONCLUSION: 1. Left mid lung mass suspected with irregular nodular focus seen. 2. Left lower lobe bronchiectasis and atelectasis. Jacob Sung MD Objective Remarks awake and alert, feels uncomfortable anicteric lungs no rales or wheezes regular rhythm abdomen- less distended, very tympanitic, + good bowel sounds, mild tenderness epigastric area extremities- moves all equally Date of Removal: Aug 27, 2016 A/P Problem List: (1) Atherosclerotic plaque ICD Code: I70.90 Status: Acute (2) Obstipation ICD Code: K59.00 Status: Acute (3) Elevated AST (SGOT) ICD Code: R74.0 Status: Acute (4) COPD (chronic obstructive pulmonary disease) ICD Code: J44.9 Status: Acute (5) Lactic acidosis ICD Code: E87.2 Status: Acute (6) Elevated amylase ICD Code: R74.8 Status: Acute (7) Tetrahydrocannabinol (THC) use disorder, mild, abuse ICD Code: F12.10 Status: Acute (8) Leukocytosis ICD Code: D72.829 Status: Acute (9) Acute kidney injury ICD Code: N17.9 Status: Acute (10) Abdominal pain ICD Code: R10.9 Status: Acute (11) Body mass index less than 16.5 ICD Code: Z68.1 Status: Acute (12) Tobacco abuse ICD Code: Z72.0 Status: Chronic (13) Anxiety ICD Code: F41.9 Status: Chronic (14) Neutrophilic leukocytosis ICD Code: D72.9 Status: Acute (15) Dyslipidemia ICD Code: E78.5 Status: Acute (16) Cachectic ICD Code: R64 Status: Acute (17) SIRS (systemic inflammatory response syndrome) ICD Code: R65.10 Status: Acute Assessment and Plan 56 years old female presenting with Sepsis/SIRs secondary to acute abdominal process- severe constipation Persistent leukocytosis- trending down -lactic acid level down. -Continue IVF - GI ff/GS - On antibiotics- Zosyn - Abdominal films no pneumoperitoneum , normal - repeat film today again Abdominal pain - secondary to severe constipation- ? History of pain meds use- per staff- patient denies this at bedside -now having BM b - continue IVF - continue on BM regimen - GI considering Linzess - will limit and decrease pain meds- seem to manifest drug seeking behavior- when observed from outside- up and appears comfortable when examined - tensed up her abdomen and make grimaces with barely touching the abdomen - repeated abdominal films no acute process- recheck again by GI Acute Kidney Injury- resolved Hypokalemia- improved -continue IVF - replace with IV Kcl History of PUD -on PPI History of Anxiety disorder - appears anxious when examined but observed to be calm and sleeping when you walked in and monitored from outside d/w staff again- confirmed Encourage patient to up and ambulate DC planning- once cleared with GI Problem Qualifiers (1) COPD (chronic obstructive pulmonary disease): Qualified Code: J44.9 - Chronic obstructive pulmonary disease, unspecified COPD type (2) Leukocytosis: Qualified Code: D72.825 - Bandemia (3) Abdominal pain: Qualified Code: R10.30 - Lower abdominal pain Cade Harper MD Aug 27, 2016 15:46
[2016-08-27] MEDS ORDERED: POTASSIUM CHLORIDE 10 MEQ CONTROLLED RELEASE TAB PO ONE (16:00)
--- NOTE | 2016-08-27 17:32 | HHI.PR ---
Subjective Remarks Alert and still C/O abdominal pain. Has had a Bowel Movement.No bleeding. No SOB at rest. Objective Vital Signs Date Time Temp Pulse Resp B/P Pulse Ox O2 Delivery O2 Flow Rate FiO2 08/27/16 16:00 72 28 97 08/27/16 14:00 70 22 97 08/27/16 12:01 76 27 166/76 96 08/27/16 12:00 78 18 98 08/27/16 12:00 98.6 08/27/16 09:00 96 38 167/64 92 08/27/16 09:00 96 38 167/64 92 08/27/16 08:00 67 25 150/69 95 08/27/16 08:00 67 25 150/69 95 08/27/16 07:59 94 21 08/27/16 07:00 Room Air 08/27/16 04:59 16 08/27/16 04:00 98.7 97 18 163/77 95 08/27/16 00:00 99.1 75 16 139/65 93 08/26/16 20:00 94 21 08/26/16 20:00 99.3 81 20 153/72 95 08/26/16 19:00 Room Air I/O 08/26/16 08/26/16 08/26/16 08/27/16 08/27/16 08/27/16 07:00 15:00 23:00 07:00 15:00 23:00 Intake Total 643 ml 1071 ml 672 ml 425 ml 866 ml Output Total 500 ml 350 ml 350 ml 450 ml 350 ml Balance 143 ml 721 ml 322 ml -25 ml 516 ml Intake Oral 340 ml IV Total 643 ml 1071 ml 672 ml 425 ml 526 ml Output Urine Total 500 ml 350 ml 350 ml 450 ml 350 ml # Bowel Movements 4 4 0 2 6 Result Diagram: 08/27/16 1355 08/27/16 1355 Objective Remarks GENERAL: This thinly built, middle-aged white female who is alert, pale and mildly dyspneic. HEENT: Head normocephalic. Pupils are reactive. Sclerae are clear Tongue is moist. Throat is clear. NECK: Supple. No bruits, lymphadenopathy or thyromegaly. CHEST: Equal movements with an increased AP diameter with diffuse wheezes bilaterally. Occasional crackles in the left lung field. HEART: The heart sounds are regular S1-S2. No murmur. No S3. ABDOMEN: Soft, protuberant. No mass. No organomegaly, but mild lower quadrant tenderness. Bowel sounds are active. EXTREMITIES: No peripheral edema. There is muscle wasting of the extremities. NEUROLOGICALLY: She is moving all her extremities. Reflexes are 1+. There is no gross motor deficit. Cranial nerves are grossly intact. The patient is awake and oriented. Skin was dry and scaly. RECTAL EXAM: Deferred. Assessment and Plan Assessment and Plan IMPRESSION 1. Chronic constipation. 2. Obstipation. 3. COPD with acute exacerbation. 4. Acute kidney injury, resolved. 5. Chronic left lung density with fibrotic scarring and bronchiectasis. 6. Nicotine dependency. 7. Hypertension. Plan : 1. Continue O2 at 2 L prn. 2. Nebs qid , duoneb 3. Up with help. 4. Continue antibiotics. 5. CBC, CXR ,BMP in am 6. IV hydration at 70 CC. Nahum Ross MD Aug 27, 2016 17:32
--- NOTE | 2016-08-27 21:48 | HHI.PR ---
Subjective Subjective Notes having small bowel movements, pain better, tolerating some clears Objective Vitals/I&O Vital Signs Date Time Temp Pulse Resp B/P Pulse Ox O2 Delivery O2 Flow Rate FiO2 08/27/16 20:42 18 08/27/16 20:00 98.6 88 165/94 95 08/27/16 19:00 Room Air 08/27/16 07:59 21 08/24/16 20:00 2.00 Labs Laboratory Tests Test 08/27/16 13:55 White Blood Count 11.3 Red Blood Count 2.90 Hemoglobin 9.0 Hematocrit 27.5 Mean Corpuscular Volume 94.7 Mean Corpuscular Hemoglobin 30.9 Mean Corpuscular Hemoglobin 32.6 Concent Red Cell Distribution Width 14.2 Platelet Count 218 Mean Platelet Volume 7.4 Neutrophils (%) (Auto) 75.7 Lymphocytes (%) (Auto) 13.3 Monocytes (%) (Auto) 10.1 Eosinophils (%) (Auto) 0.7 Basophils (%) (Auto) 0.2 Neutrophils # (Auto) 8.5 Lymphocytes # (Auto) 1.5 Monocytes # (Auto) 1.1 Eosinophils # (Auto) 0.1 Basophils # (Auto) 0.0 CBC Comment DIFF FINAL Differential Comment Sodium Level 145 Potassium Level 3.7 Chloride Level 112 Carbon Dioxide Level 25.2 Anion Gap 8 Blood Urea Nitrogen 8 Creatinine 0.77 Estimat Glomerular Filtration 77 Rate Random Glucose 94 Calcium Level 7.6 Date/Time Procedure Status Source Growth 08/24/16 09:00 Aerobic Blood Culture - Preliminary Resulted Blood Peripheral NO GROWTH IN 3 DAYS 08/24/16 09:00 Anaerobic Blood Culture - Preliminary Resulted Blood Peripheral NO GROWTH IN 3 DAYS 08/24/16 04:45 Urine Culture - Final Complete Urine Catheterized Urine NO GROWTH IN 48 HOURS. Cardiovascular: Regular Lungs: Clear Abdomen: Other (soft, improved) A/P Assessment and Plan 56-year-old female with abdominal pain, severe constipation, axr shows some improvement, labs trending down PLAN continue clears slowly advance bowel regimen continue non operative mgnt abdominal exams will follow closely Benjie Lim MD Aug 27, 2016 21:48
[2016-08-27] MEDS ORDERED: metroNIDAZOLE 500 MG TAB PO ONE (22:30)
[2016-08-28] VITALS (9 sets, daily range): BP systolic 129–164; BP diastolic 61–80; PULSE 68–77; RESP 16–25; TEMP 97.6–99.3; O2SAT 96–99
[2016-08-28] MEDS: D5-NS + KCL 20 MEQ INJ 1,000 ML IV SCH ×2 (00:08→07:19)
[2016-08-28] MEDS: PIPERACIL-TAZO 2.25 GM PREMIX 50 ML IV SCH ×4 (02:07→21:47)
[2016-08-28] MEDS: RESP: ALBUTEROL 2.5 MG/IPRATROPIUM 0.5 MG NEB (SCH) INH ×3 (03:26→07:52)
[2016-08-28] MEDS: INSULIN NovoLIN REGULAR SUPPLEMENTAL SCALE SQ SCH ×4 (04:00→12:00)
[2016-08-28] MEDS: CHLORHEXIDINE GLUCONATE 2 % 1 PACK (2 CLOTHS) TOP SCH (04:00)
--- NOTE | 2016-08-28 04:13 | RADRPT ---
EXAM DATE/TIME: 08/28/2016 03:03 [facility] COMPARISON: CHEST SINGLE AP, August 24, 2016, 8:52. INDICATIONS : Shortness of breath, possible pulmonary disease. MEDICAL HISTORY : Chronic obstructive pulmonary disease. SURGICAL HISTORY : Tubal ligation. lumbar surgery ENCOUNTER: Subsequent ACUITY: 1 month PAIN SCORE: 8/10 LOCATION: Bilateral chest FINDINGS: A single view of the chest demonstrates hyperinflation which can be seen with COPD. No infiltrates a re seen. Heart is normal in size. The mediastinal contours are unremarkable. Osseous structures are intact. CONCLUSION: Hyperinflation which can be seen with COPD. No evidence for an infiltrate. . Fidencio Key MD on August 28, 2016 at 4:10 Board Certified Radiologist. This report was verified electronically.
--- NOTE | 2016-08-28 04:14 | RADRPT ---
EXAM DATE/TIME: 08/28/2016 03:08 [facility] COMPARISON: ABDOMEN FLAT & UPRIGHT, August 26, 2016, 10:24. INDICATIONS : Abdominal distention. MEDICAL HISTORY : Chronic obstructive pulmonary disease. SURGICAL HISTORY : Tubal ligation. Lumbar surgery ENCOUNTER: Subsequent ACUITY: 1 month PAIN SCORE: 8/10 LOCATION: Bilateral Abdomen FINDINGS: Supine and upright views of the abdomen were performed. Gaseous distention of multiple bowel loops. N o abnormal calcifications. The visualized lower lungs are clear. No evidence of free intraperitonea l gas. The osseous structures are unremarkable. CONCLUSION: Gaseous distention multiple bowel loops which can be seen with ileus. Fidencio Key MD on August 28, 2016 at 4:11 Board Certified Radiologist. This report was verified electronically.
[2016-08-28 05:20] LABS: AUTOMATED NEUTROPHIL # 7.6 TH/MM3 (1.8-7.7); BASOPHIL % 0.1 % (0.0-2.0); EOSINOPHIL # 0.2 TH/MM3 (0-0.4); HEMATOCRIT 28.7 % (35.0-46.0); HEMO FLAGS DIFF FINAL; LYMPH % 16.1 % (9.0-44.0); LYMPHOCYTE # 1.7 TH/MM3 (1.0-4.8); MEAN CORPUSCULAR HEMOGLOBIN 31.4 PG (27.0-34.0); MEAN CORPUSCULAR HGB CONC 33.4 % (32.0-36.0); MONO % 11.7 % (0.0-8.0); NEUT % 70.1 % (16.0-70.0); PLATELET COUNT 222 TH/MM3 (150-450); RED BLOOD COUNT 3.06 MIL/MM3 (4.00-5.30); WHITE BLOOD COUNT 10.8 TH/MM3 (4.0-11.0)
[2016-08-28] MEDS: SIMETHICONE 125 MG CHEWABLE TAB PO SCH ×3 (05:24→21:47)
[2016-08-28 05:45] LABS: BICARBONATE 22.8 MEQ/L (21.0-32.0); POTASSIUM 3.6 MEQ/L (3.5-5.1)
[2016-08-28] MEDS: metroNIDAZOLE 250 MG TAB PO SCH (06:36)
[2016-08-28] MEDS: PANTOPRAZOLE SODIUM 40 MG VIAL IV SCH (08:11)
[2016-08-28] MEDS: SODIUM CHLORIDE 0.9% FLUSH 10 ML FLUSH IV FLUSH SCH ×2 (08:11→20:34)
[2016-08-28] MEDS: DOCUSATE SODIUM 100 MG/10 ML UDC PO SCH ×2 (08:11→20:34)
[2016-08-28] MEDS: LACTULOSE SYRUP 20 GM/30 ML CUP PO SCH ×4 (08:12→20:34)
[2016-08-28] MEDS: SENNOSIDES SYRUP 8.8 MG/5 ML CUP PO SCH (08:12)
[2016-08-28] MEDS: POLYETHYLENE GLYCOL 17 GM PKG PO SCH (08:12)
[2016-08-28] MEDS: HEPARIN SODIUM - SQ 10,000 UNITS/ML VIAL SQ SCH ×2 (08:12→20:34)
[2016-08-28] MEDS: ONDANSETRON HCL 4 MG/2 ML VIAL IV PRN (08:20)
[2016-08-28] MEDS: BUDESONIDE-FORMOTEROL 80/4.5 MCG INHALER INH SCH ×3 (08:20→20:34)
--- NOTE | 2016-08-28 09:21 | HHI.GIFU ---
Subjective Remarks nauseated and had emesis x 1...abd films reveal ileus pattern w dilated loops of SB, loose stools Objective Vitals I&O Vital Signs Date Time Temp Pulse Resp B/P Pulse Ox O2 Delivery O2 Flow Rate FiO2 08/28/16 04:00 98.2 72 18 150/73 96 08/28/16 00:00 98.2 73 16 150/70 97 08/27/16 20:42 18 08/27/16 20:00 98.6 88 18 165/94 95 08/27/16 19:42 98 21 08/27/16 19:00 Room Air 08/27/16 16:00 72 28 97 08/27/16 14:00 70 22 97 08/27/16 12:01 76 27 166/76 96 08/27/16 12:00 78 18 98 08/27/16 12:00 98.6 I/O 08/27/16 08/27/16 08/27/16 08/28/16 08/28/16 08/28/16 07:00 15:00 23:00 07:00 15:00 23:00 Intake Total 425 ml 866 ml 338 ml 780 ml Output Total 450 ml 350 ml 750 ml 350 ml Balance -25 ml 516 ml -412 ml 430 ml Intake Oral 340 ml 240 ml 120 ml IV Total 425 ml 526 ml 98 ml 660 ml Output Urine Total 450 ml 350 ml 750 ml 350 ml # Bowel Movements 2 6 6 5 Laboratory Laboratory Tests Test 08/27/16 08/28/16 13:55 03:45 White Blood Count 11.3 10.8 Red Blood Count 2.90 3.06 Hemoglobin 9.0 9.6 Hematocrit 27.5 28.7 Mean Corpuscular Volume 94.7 94.0 Mean Corpuscular Hemoglobin 30.9 31.4 Mean Corpuscular Hemoglobin 32.6 33.4 Concent Red Cell Distribution Width 14.2 14.0 Platelet Count 218 222 Mean Platelet Volume 7.4 7.8 Neutrophils (%) (Auto) 75.7 70.1 Lymphocytes (%) (Auto) 13.3 16.1 Monocytes (%) (Auto) 10.1 11.7 Eosinophils (%) (Auto) 0.7 2.0 Basophils (%) (Auto) 0.2 0.1 Neutrophils # (Auto) 8.5 7.6 Lymphocytes # (Auto) 1.5 1.7 Monocytes # (Auto) 1.1 1.3 Eosinophils # (Auto) 0.1 0.2 Basophils # (Auto) 0.0 0.0 CBC Comment DIFF FINAL DIFF FINAL Differential Comment Sodium Level 145 141 Potassium Level 3.7 3.6 Chloride Level 112 111 Carbon Dioxide Level 25.2 22.8 Anion Gap 8 7 Blood Urea Nitrogen 8 5 Creatinine 0.77 0.71 Estimat Glomerular Filtration 77 85 Rate Random Glucose 94 105 Calcium Level 7.6 7.5 Date/Time Procedure Status Source Growth 08/24/16 09:00 Aerobic Blood Culture - Preliminary Resulted Blood Peripheral NO GROWTH IN 3 DAYS 08/24/16 09:00 Anaerobic Blood Culture - Preliminary Resulted Blood Peripheral NO GROWTH IN 3 DAYS 08/24/16 04:45 Urine Culture - Final Complete Urine Catheterized Urine NO GROWTH IN 48 HOURS. Imaging Last Impressions Chest X-Ray 08/28/16 0600 Signed Impressions: Service Date/Time: August 03:03 - CONCLUSION: Hyperinflation which can be seen with COPD. No evidence for an infiltrate. . Fidencio Key MD Abdomen X-Ray 08/28/16 0000 Signed Impressions: Service Date/Time: August 03:08 - CONCLUSION: Gaseous distention multiple bowel loops which can be seen with ileus. Fidencio Key MD Enema w/Water Soluble 08/25/16 0000 Signed Impressions: Service Date/Time: Thursday, August 25, 2016 14:13 - CONCLUSION: Moderate stool throughout the colon. Otherwise, unremarkable Gastrografin enema. Sourav Ward MD Abdomen/Pelvis CT 08/24/16 0342 Signed Impressions: Service Date/Time: Wednesday, August 24, 2016 06:05 - CONCLUSION: There is marked distention and fluid filled stomach and small bowel. There is stool throughout the colon distally. No obvious wall thickening or pneumatosis identified. No visible evidence of colitis or ischemic bowel. Neto Zambrano MD Physical Exam CHEST: Chest is clear to auscultation and percussion. CARDIAC: Regular rate and rhythm with no murmur gallop or rubs. ABDOMEN: Soft,distention noted and tympanic, mild diffuse tenderness no rebound ..; EXTREMITIES: No clubbing, cyanosis, or edema. SKIN: Normal; no rash; no jaundice. Assessment and Plan Assessment: (1) Abdominal pain (2) Constipation (3) Adynamic ileus Plan Have advised NGT decompression and pt agrees, change to IV Flagyl, f/ u abdominal films Problem Qualifiers (1) Abdominal pain: Qualified Code: R10.30 - Lower abdominal pain (2) Constipation: Qualified Code: K59.04 - Chronic idiopathic constipation Kristofer Moreno MD Aug 28, 2016 09:20
[2016-08-28] MEDS: HYDROmorphone HCL PF 1 MG/ML VIAL IV PUSH PRN ×2 (09:27→14:43)
--- NOTE | 2016-08-28 10:50 | RADRPT ---
EXAM DATE/TIME: 08/28/2016 10:14 [facility] COMPARISON: ABDOMEN KUB ONLY, August 25, 2016, 8:27. INDICATIONS : Check nasogastric tube placement. MEDICAL HISTORY : None. SURGICAL HISTORY : None. ENCOUNTER: Initial ACUITY: 4 - 6 days PAIN SCORE: 0/10 LOCATION: Abdomen. FINDINGS: There is an NG tube in the stomach. Compared to the prior study there has been overall improvement in the gaseous distention of the small large bowel. No significant dilatation is seen on today's examin ation. The stool in the left colon seen on the prior study has been evacuated. CONCLUSION: 1. There is an NG tube in the stomach. 2. Overall improvement of patient bowel gas pattern. Sourav Ward MD on August 28, 2016 at 10:46 Board Certified Radiologist. This report was verified electronically.
--- NOTE | 2016-08-28 10:58 | HHI.PR ---
Subjective Subjective Notes Resting in bed NGT just recently placed Was nauseous this morning Objective Vitals/I&O Vital Signs Date Time Temp Pulse Resp B/P Pulse Ox O2 Delivery O2 Flow Rate FiO2 08/28/16 08:00 99.3 68 19 164/75 99 08/28/16 07:00 Room Air 08/27/16 19:42 21 08/24/16 20:00 2.00 Labs Laboratory Tests Test 08/27/16 08/28/16 13:55 03:45 White Blood Count 11.3 10.8 Red Blood Count 2.90 3.06 Hemoglobin 9.0 9.6 Hematocrit 27.5 28.7 Mean Corpuscular Volume 94.7 94.0 Mean Corpuscular Hemoglobin 30.9 31.4 Mean Corpuscular Hemoglobin 32.6 33.4 Concent Red Cell Distribution Width 14.2 14.0 Platelet Count 218 222 Mean Platelet Volume 7.4 7.8 Neutrophils (%) (Auto) 75.7 70.1 Lymphocytes (%) (Auto) 13.3 16.1 Monocytes (%) (Auto) 10.1 11.7 Eosinophils (%) (Auto) 0.7 2.0 Basophils (%) (Auto) 0.2 0.1 Neutrophils # (Auto) 8.5 7.6 Lymphocytes # (Auto) 1.5 1.7 Monocytes # (Auto) 1.1 1.3 Eosinophils # (Auto) 0.1 0.2 Basophils # (Auto) 0.0 0.0 CBC Comment DIFF FINAL DIFF FINAL Differential Comment Sodium Level 145 141 Potassium Level 3.7 3.6 Chloride Level 112 111 Carbon Dioxide Level 25.2 22.8 Anion Gap 8 7 Blood Urea Nitrogen 8 5 Creatinine 0.77 0.71 Estimat Glomerular Filtration 77 85 Rate Random Glucose 94 105 Calcium Level 7.6 7.5 Date/Time Procedure Status Source Growth 08/24/16 09:00 Aerobic Blood Culture - Preliminary Resulted Blood Peripheral NO GROWTH IN 3 DAYS 08/24/16 09:00 Anaerobic Blood Culture - Preliminary Resulted Blood Peripheral NO GROWTH IN 3 DAYS 08/24/16 04:45 Urine Culture - Final Complete Urine Catheterized Urine NO GROWTH IN 48 HOURS. Cardiovascular: Regular Lungs: Clear Abdomen: Other (mildly tender; distended; NGT to LIWS ) Extremities: No edema A/P Assessment and Plan 56 year old female with abdominal pain, severe constipation, dilated loops of small bowel -NGT to LIWS -KUB reviewed -Zofran PRN for nausea -KUB in am -Will follow abdominal exams -Will continue non op treatment Attending Statement increased nausea ng placed by gi kub in am pending pt seen at bedside Attestation The exam, history, and the medical decision-making described in the above note were completed with the assistance of the mid-level provider. I reviewed and agree with the findings presented. I attest that I had a [id number] encounter with the patient on the same day, and personally performed and documented my assessment and findings in the medical record. Isabel Israel Aug 28, 2016 10:58 Benjie Lim MD Aug 31, 2016 16:48
--- NOTE | 2016-08-28 12:48 | HHI.PR ---
Subjective Remarks Alert and still C/O abdominal pain. Has had vomiting.No bleeding. No SOB at rest.On o2 2 L. Objective Vital Signs Date Time Temp Pulse Resp B/P Pulse Ox O2 Delivery O2 Flow Rate FiO2 08/28/16 08:00 99.3 68 19 164/75 99 08/28/16 07:00 99 Room Air 08/28/16 04:00 98.2 72 18 150/73 96 08/28/16 00:00 98.2 73 16 150/70 97 08/27/16 20:42 18 08/27/16 20:00 98.6 88 18 165/94 95 08/27/16 19:42 98 21 08/27/16 19:00 Room Air 08/27/16 16:00 72 28 97 08/27/16 14:00 70 22 97 I/O 08/27/16 08/27/16 08/27/16 08/28/16 08/28/16 08/28/16 07:00 15:00 23:00 07:00 15:00 23:00 Intake Total 425 ml 866 ml 338 ml 780 ml Output Total 450 ml 350 ml 750 ml 350 ml Balance -25 ml 516 ml -412 ml 430 ml Intake Oral 340 ml 240 ml 120 ml IV Total 425 ml 526 ml 98 ml 660 ml Output Urine Total 450 ml 350 ml 750 ml 350 ml # Bowel Movements 2 6 6 5 Result Diagram: 08/28/16 0345 08/28/16 0345 Objective Remarks GENERAL: This thinly built, middle-aged white female who is alert, pale and mildly dyspneic. HEENT: Head normocephalic. Pupils are reactive. Sclerae are clear Tongue is moist. Throat is clear. NECK: Supple. No bruits, lymphadenopathy or thyromegaly. CHEST: Equal movements with an increased AP diameter with diffuse wheezes bilaterally. Occasional crackles in the left lung field. HEART: The heart sounds are regular S1-S2. No murmur. No S3. ABDOMEN: Soft, protuberant. No mass. No organomegaly, and mild distention. and mild lower quadrant tenderness. Bowel sounds are active. EXTREMITIES: No peripheral edema. There is muscle wasting of the extremities. NEUROLOGICALLY: She is moving all her extremities. Reflexes are 1+. There is no gross motor deficit. Cranial nerves are grossly intact. The patient is awake and oriented. Skin was dry and scaly. RECTAL EXAM: Deferred. Assessment and Plan Assessment and Plan IMPRESSION 1. Chronic constipation. 2. Obstipation. 3. COPD with acute exacerbation. 4. Acute kidney injury, resolved. 5. Chronic left lung density with fibrotic scarring and bronchiectasis. 6. Nicotine dependency. 7. Hypertension. Plan : 1. Continue O2 at 2 L prn. 2. Nebs qid , duoneb 3. NG with Int suction 4. Continue antibiotics. 5. CBC, ,BMP in am 6. IV hydration at 75 CC. Nahum Ross MD Aug 28, 2016 12:47
[2016-08-28] MEDS: metroNIDAZOLE 500 MG INJ 100 ML IV SCH ×2 (13:11→20:33)
[2016-08-28] MEDS ORDERED: ACETAMINOPHEN/HYDROcodone 325 MG/5 MG TAB PO PRN (15:15)
--- NOTE | 2016-08-28 16:20 | HHI.PR ---
Subjective Remarks Follow-up for intractable emesis and abdominal pain Patient stated that abdominal pain is not severe and not its her lower back pain. She stated that pain has been chronic. She had nausea /vomiting an NG was placed this morning. Since then symptoms has improved. Patient has no complaints. Dealt with her nurse at the bedside. Objective Vitals Vital Signs Date Time Temp Pulse Resp B/P Pulse Ox O2 Delivery O2 Flow Rate FiO2 08/28/16 16:00 99.3 77 20 138/63 98 08/28/16 15:00 72 16 147/66 97 08/28/16 14:00 71 25 129/61 96 08/28/16 13:00 75 24 155/68 98 08/28/16 12:00 97.6 69 17 158/70 97 08/28/16 08:00 99.3 68 19 164/75 99 08/28/16 07:00 99 Room Air 08/28/16 04:00 98.2 72 18 150/73 96 08/28/16 00:00 98.2 73 16 150/70 97 08/27/16 20:42 18 08/27/16 20:00 98.6 88 18 165/94 95 08/27/16 19:42 98 21 08/27/16 19:00 Room Air I/O 08/27/16 08/27/16 08/27/16 08/28/16 08/28/16 08/28/16 06:59 14:59 22:59 06:59 14:59 22:59 Intake Total 425 ml 866 ml 338 ml 780 ml 775 ml Output Total 450 ml 350 ml 750 ml 350 ml 550 ml Balance -25 ml 516 ml -412 ml 430 ml 225 ml Intake Oral 340 ml 240 ml 120 ml 100 ml IV Total 425 ml 526 ml 98 ml 660 ml 675 ml Output Urine Total 450 ml 350 ml 750 ml 350 ml 500 ml Gastric Drainage Total 50 ml # Bowel Movements 2 6 6 5 2 Result Diagram: 08/28/16 0345 08/28/16344 Objective Remarks GENERAL: in NAD but she looks chronically ill patient SKIN: Warm and dry. HEAD: Normocephalic. EYES: No scleral icterus. No injection or drainage. NECK: Supple, trachea midline. No JVD or lymphadenopathy. CARDIOVASCULAR: Regular rate and rhythm without murmurs, gallops, or rubs. RESPIRATORY: Breath sounds equal bilaterally. No accessory muscle use. GASTROINTESTINAL: Abdomen soft, + diffuse TTP but very nonspecific and patient stated that it's more due to her back pain, nondistended. No peritoneal signs. MUSCULOSKELETAL: No cyanosis, or edema. BACK: Nontender without obvious deformity. No CVA tenderness. Medications and IVs Current Medications Ondansetron HCl 4 mg 4 mg ONCE ONCE IVP Last administered on 08/24/16 02:31; Start 08/24/16 at 01:30; Stop 08/24/16 at 01:31; Status DC Sodium Chloride (NS 1000 ml Inj) 1,000 ml @ 1,000 mls/hr Q1H IV Last administered on 08/24/16 01:53; Start 08/24/16 at 01:19; Stop 08/24/16 at 02:18; Status DC Sodium Chloride (NS Flush) 2 ml UNSCH PRN IV FLUSH FLUSH AFTER USING IV ACCESS ; Start 08/24/16 at 01:30; Stop 08/24/16 at 08:41; Status DC Hydromorphone HCl (Dilaudid Pf Inj) 0.05 mg ONCE ONCE IVS ; Start 08/24/16 at 01 :30; Stop 08/24/16 at 01:31; Status Cancel Hydromorphone HCl (Dilaudid Pf Inj) 0.5 mg ONCE ONCE IVS Last administered on 08/24/16 02:32; Start 08/24/16 at 02:30; Stop 08/24/16 at 02:31; Status DC Diatrizoate Meglum/ Diatrizoate Sod ( Gastroemma Liq) 18 ml STK-MED ONCE .ROUTE Last administered on 08/24/16 04:23; Start 08/24/16 at 04:19; Stop at 04:20; Status DC Hydromorphone HCl 1 mg 1 mg ONCE ONCE IVS Last administered on 08/24/16 04:33 ; Start 08/24/16 at 04:30; Stop 08/24/16 at 04:31; Status DC Sodium Chloride 1,000 ml @ 999 mls/hr BOLUS ONCE IV Last administered on 04:37; Start 08/24/16 at 04:45; Stop 08/24/16 at 05:45; Status DC Piperacillin Sod/ Tazobactam Sod 50 ml @ 100 mls/hr ONCE ONCE IV Last administered on 08/24/16 07:30; Start 08/24/16 at 07:30; Stop 08/24/16 at 07:59; Status DC Sodium Chloride (NS 1000 ml Inj) 1,000 ml @ 84 mls/hr [id number] IV Last administered on 08/25/16 08:50; Start 08/24/16 at 09:00; Stop 08/25/16 at 12:00; Status DC Sodium Chloride (NS Flush) 2 ml UNSCH PRN IV FLUSH FLUSH AFTER USING IV ACCESS Last administered on 08/28/16 08:11; Start 08/24/16 at 08:30 Sodium Chloride (NS Flush) 2 ml BID IV FLUSH Last administered on 08/28/16 08: 11; Start 08/24/16 at 09:00 Acetaminophen (Tylenol) 650 mg Q6H PRN PO PAIN 1-10 AND/OR FEVER >101F; Start 08/24/16 at 08:30; Status Hold Pantoprazole Sodium (Protonix Inj) 40 mg DAILY IV Last administered on 08:11; Start 08/24/16 at 09:00 Ondansetron HCl (Zofran Inj) 4 mg Q6H PRN IV NAUSEA OR VOMITING Last administered on 08/28/16 08:20; Start 08/24/16 at 08:30 Albuterol/ Ipratropium (Duoneb Neb) 1 ampule Q4HR NEB INH ; Start 08/24/16 at 12 :00; Stop 08/28/16 at 12:00; Status DC Albuterol Sulfate (Albuterol Neb) 2.5 mg Q2HR NEB PRN INH SOB/WHEEZING; Start 08/24/16 at 08:30 Heparin Sodium (Porcine) (Heparin Inj) 5,000 units Q12H SQ Last administered on 08/28/16 08:12; Start 08/24/16 at 09:00 Miscellaneous Information 1 [id number] XX ; Start 08/24/16 at 08:30 Chlorhexidine Gluconate (Chlorhexidine 2% Cloth) 3 pack Taper DAILY@04 TOP Last administered on 08/28/16 04:00; Start 08/25/16 at 04:00; Stop 08/21/17 at 03 :59 Chlorhexidine Gluconate (Chlorhexidine 2% Cloth) 3 pack UNSCH PRN TOP HYGIENIC CARE; Start 08/24/16 at 08:30 Hydromorphone HCl (Dilaudid Pf Inj) 0.5 mg Q3H PRN IV PUSH PAIN SCALE 1 TO 5 Last administered on 08/25/16 05:39; Start 08/24/16 at 08:45; Stop 08/26/16 at 16: 26; Status DC Hydromorphone HCl 1 mg 1 mg Q3H PRN IV PUSH PAIN SCALE 6 TO 10 Last administered on 08/26/16 16:13; Start 08/24/16 at 08:45; Stop 08/26/16 at 16:27; Status DC Piperacillin Sod/ Tazobactam Sod (Zosyn 2.25 Gm Premix) 50 ml @ 100 mls/hr Q6H IV ; Start 08/24/16 at 08:45; Stop 08/24/16 at 09:33; Status DC Acetaminophen (Ofirmev Inj) 1,000 mg Q6H PRN IV fever; Start 08/24/16 at 08:45; Stop 08/25/16 at 08:44; Status DC Methylnaltrexone [place] (Relistor Inj) 12 mg ONCE ONCE SQ Last administered on 08/24/16 12:04; Start 08/24/16 at 08:45; Stop 08/24/16 at 09:24; Status DC Glycerin (Glycerin Adult Supp) 2 gm BID PRN RECTAL CONSTIPATION Last administered on 08/25/16 09:09; Start 08/24/16 at 08:45 Lactulose (Lactulose Liq) 30 ml QID PO Last administered on 08/28/16 08:12; Start 08/24/16 at 09:00 Polyethylene Glycol (Miralax) 17 gm DAILY PO Last administered on 08/28/16 08: 12; Start 08/24/16 at 09:00 Docusate Sodium (Colace Liq) 100 mg Q12HR PO Last administered on 08/28/16 08: 11; Start 08/24/16 at 09:00 Sennosides (Senna Liq) 8.8 mg DAILY PO Last administered on 7/6/17at 08:12; Start 08/24/16 at 09:00 Lorazepam (Ativan Inj) 1 mg Q6H PRN IV PUSH anxiety; Start 08/24/16 at 08:45 Hydralazine HCl (Apresoline Inj) 10 mg Q1HR PRN IV PUSH SBP>160, DBP>90; Start 08/24/16 at 08:45 Nitroglycerin (Nitroglycerin 2% Oint) 1 inch Q6HR PRN TOPICAL SBP>160, DBP>90; Start 08/24/16 at 08:45 Labetalol HCl 10 mg 10 mg Q1HR PRN IV PUSH SBP>160, DBP>90, HR>65; Start at 08:45 Sodium Chloride 1,000 ml @ 999 mls/hr BOLUS ONCE IV Last administered on 08:45; Start 08/24/16 at 08:45; Stop 08/24/16 at 09:45; Status DC Sodium Chloride 1,000 ml @ 999 mls/hr BOLUS ONCE IV Last administered on 09:16; Start 08/24/16 at 08:45; Stop 08/24/16 at 09:45; Status DC Piperacillin Sod/ Tazobactam Sod (Zosyn 2.25 Gm Premix) 50 ml @ 100 mls/hr Q6H IV Last administered on 08/28/16 14:41; Start 08/24/16 at 14:00 Magnesium Citrate (Citroma Liq) 300 ml Q6H PO Last administered on 08/25/16 02: 10; Start 08/24/16 at 20:00; Stop 08/25/16 at 02:01; Status DC Bisacodyl 10 mg 10 mg Q3H PO Last administered on 08/25/16 03:44; Start at 00:00; Stop 08/25/16 at 03:01; Status DC Dextrose/Sodium Chloride (D5W-NS 1000 ml Inj) 1,000 ml @ 75 mls/hr [id number] IV Last administered on 08/26/16 05:50; Start 08/25/16 at 12:00; Stop 08/26/16 at 10: 46; Status DC Dextrose (D50w (Vial) Inj) 50 ml UNSCH PRN IV HYPOGLYCEMIA-SEE COMMENTS; Start 08/25/16 at 12:00; Stop 08/28/16 at 15:04; Status DC Glucagon (Glucagon Inj) 1 mg UNSCH PRN OTHER HYPOGLYCEMIA-SEE COMMENTS; Start 08/25/16 at 12:00; Stop 08/28/16 at 15:04; Status DC Insulin Human Regular (NovoLIN R SUPPLEMENTAL SCALE) 1 Q4H SQ ; Start 08/25/16 at 12:00; Stop 08/28/16 at 15:04; Status DC Budesonide/ Formoterol Fumarate (Symbicort 80-4.5 Mcg Inh) 1 puff Q12HR INH Last administered on 08/26/16 20:43; Start 08/25/16 at 21:00 Diatrizoate Meglum/ Diatrizoate Sod 740 ml 740 ml STK-MED ONCE RECTAL Last administered on 08/25/16 14:20; Start 08/25/16 at 14:20; Stop 08/25/16 at 14:47; Status DC Potassium Chloride/Dextrose/ Sod Cl 1,000 ml @ 70 mls/hr [id number] IV Last administered on 08/28/16 07:19; Start 08/26/16 at 10:45 Potassium Chloride (KCl 10 Meq Premix Inj) 100 ml @ 100 mls/hr Q1H IV Last administered on 08/26/16 14:48; Start 08/26/16 at 11:00; Stop 08/26/16 at 13:59; Status DC Hydromorphone HCl (Dilaudid Pf Inj) 0.25 mg Q4HR PRN IV PUSH PAIN SCALE 1 TO 5 ; Start 08/26/16 at 20:00; Stop 08/27/16 at 15:34; Status DC Hydromorphone HCl (Dilaudid Pf Inj) 0.5 mg Q3H PRN IV PUSH PAIN SCALE 6 TO 10; Start 08/26/16 at 17:45; Stop 08/26/16 at 17:45; Status DC Hydromorphone HCl (Dilaudid Pf Inj) 0.5 mg Q4HR PRN IV PUSH PAIN SCALE 6 TO 10 Last administered on 08/27/16 04:29; Start 08/26/16 at 20:00; Stop 08/27/16 at 15: 35; Status DC Simethicone (Phazyme Chew) 125 mg Q8HR PO Last administered on 08/28/16 13:11; Start 08/27/16 at 14:00 Metronidazole (Flagyl) 250 mg Q8HR PO Last administered on 08/28/16 06:36; Start 08/27/16 at 14:00; Status Hold Hydromorphone HCl (Dilaudid Pf Inj) 0.125 mg Q4H PRN IV PUSH PAIN SCALE 4 TO 10 Last administered on 08/28/16 14:43; Start 08/27/16 at 15:45; Stop 08/28/16 at 15:04; Status DC Potassium Chloride (KCl) 30 meq ONCE ONCE PO Last administered on 08/27/16 16: 08; Start 08/27/16 at 16:00; Stop 08/27/16 at 16:01; Status DC Metronidazole 250 mg 250 mg ONCE ONCE PO Last administered on 08/27/16 22:22; Start 08/27/16 at 22:30; Stop 08/27/16 at 22:31; Status DC Metronidazole (Flagyl 500 Mg Inj) 100 ml @ 100 mls/hr Q8H IV Last administered on 08/28/16 13:11; Start 08/28/16 at 14:00 Acetaminophen/ Hydrocodone Bitart ([place] 5-325 Mg) 1 tab Q6H PRN PO PAIN 1-8; Start 08/28/16 at 15:15; Status UNV Acetaminophen/ Hydrocodone Bitart ([place] 5-325 Mg) 2 tab Q6H PRN PO pain 9-10 ; Start 08/28/16 at 15:15; Status UNV Date of Removal: Aug 27, 2016 A/P Problem List: (1) Atherosclerotic plaque ICD Code: I70.90 Status: Acute (2) Obstipation ICD Code: K59.00 Status: Acute (3) Elevated AST (SGOT) ICD Code: R74.0 Status: Acute (4) COPD (chronic obstructive pulmonary disease) ICD Code: J44.9 Status: Acute (5) Lactic acidosis ICD Code: E87.2 Status: Acute (6) Elevated amylase ICD Code: R74.8 Status: Acute (7) Tetrahydrocannabinol (THC) use disorder, mild, abuse ICD Code: F12.10 Status: Acute (8) Leukocytosis ICD Code: D72.829 Status: Acute (9) Acute kidney injury ICD Code: N17.9 Status: Acute (10) Abdominal pain ICD Code: R10.9 Status: Acute (11) Body mass index less than 16.5 ICD Code: Z68.1 Status: Acute (12) Tobacco abuse ICD Code: Z72.0 Status: Chronic (13) Anxiety ICD Code: F41.9 Status: Chronic (14) Neutrophilic leukocytosis ICD Code: D72.9 Status: Acute (15) Dyslipidemia ICD Code: E78.5 Status: Acute (16) Cachectic ICD Code: R64 Status: Acute (17) SIRS (systemic inflammatory response syndrome) ICD Code: R65.10 Status: Acute Assessment and Plan 56 years old female presenting with Sepsis/SIRs secondary to acute abdominal process- severe constipation Persistent leukocytosis- trending down -lactic acid level down. -Continue IVF Abdominal pain - secondary to severe constipation- ? History of pain meds use- per staff- patient denies this at bedside -GI ff/GS and recommend conservative management. -Pain meds makes constipation worse will try to avoid pain medication if possible. --Serial imaging and abdominal exam. -NG placed this morning and is improving. -Continue management per GI and general surgeon. Acute Kidney Injury- resolved Hypokalemia- improved -continue IVF - replace with IV Kcl History of PUD -on PPI History of Anxiety disorder - Continue with current regimen. Discharge Planning Once cleared by surgeon and GI can be discharged to home. Problem Qualifiers (1) COPD (chronic obstructive pulmonary disease): Qualified Code: J44.9 - Chronic obstructive pulmonary disease, unspecified COPD type (2) Leukocytosis: Qualified Code: D72.825 - Bandemia (3) Abdominal pain: Qualified Code: R10.30 - Lower abdominal pain Zoie Mercado MD Aug 28, 2016 16:20
[2016-08-28] MEDS ORDERED: HYDROmorphone HCL PF 1 MG/ML VIAL IV PUSH ONE (22:00)
[2016-08-29] VITALS (7 sets, daily range): BP systolic 142–155; BP diastolic 65–83; PULSE 64–78; RESP 16–18; TEMP 97.8–99.5; O2SAT 94–98
[2016-08-29] MEDS: D5-NS + KCL 20 MEQ INJ 1,000 ML IV SCH ×2 (01:15→18:20)
[2016-08-29] MEDS: PIPERACIL-TAZO 2.25 GM PREMIX 50 ML IV SCH ×4 (01:16→20:48)
[2016-08-29] MEDS: CHLORHEXIDINE GLUCONATE 2 % 1 PACK (2 CLOTHS) TOP SCH (01:16)
[2016-08-29] MEDS: SIMETHICONE 125 MG CHEWABLE TAB PO SCH ×3 (05:08→21:04)
[2016-08-29] MEDS: metroNIDAZOLE 500 MG INJ 100 ML IV SCH ×3 (05:08→21:04)
[2016-08-29 07:05] LABS: AUTOMATED NEUTROPHIL # 5.8 TH/MM3 (1.8-7.7); BASOPHIL % 0.3 % (0.0-2.0); EOSINOPHIL # 0.2 TH/MM3 (0-0.4); EOSINOPHIL % 2.4 % (0.0-4.0); HEMATOCRIT 26.6 % (35.0-46.0); HEMO FLAGS DIFF FINAL; LYMPH % 14.9 % (9.0-44.0); LYMPHOCYTE # 1.2 TH/MM3 (1.0-4.8); MEAN CELL VOLUME 93.6 FL (80.0-100.0); MEAN CORPUSCULAR HEMOGLOBIN 31.2 PG (27.0-34.0); MEAN CORPUSCULAR HGB CONC 33.3 % (32.0-36.0); MONO % 13.2 % (0.0-8.0); NEUT % 69.2 % (16.0-70.0); PLATELET COUNT 202 TH/MM3 (150-450); RED BLOOD COUNT 2.84 MIL/MM3 (4.00-5.30); RED CELL DISTRIBUTION WIDTH 14.1 % (11.6-17.2); WHITE BLOOD COUNT 8.3 TH/MM3 (4.0-11.0)
[2016-08-29 07:08] LABS: BICARBONATE 25.2 MEQ/L (21.0-32.0); POTASSIUM 3.9 MEQ/L (3.5-5.1)
--- NOTE | 2016-08-29 07:59 | HHI.PR ---
Subjective Subjective Notes nausea better, ng in place, +bms Objective Vitals/I&O Vital Signs Date Time Temp Pulse Resp B/P Pulse Ox O2 Delivery O2 Flow Rate FiO2 08/29/16 00:00 99.0 76 18 146/83 98 08/28/16 20:15 Room Air 08/27/16 19:42 21 Labs Laboratory Tests Test 08/29/16 04:53 White Blood Count 8.3 Red Blood Count 2.84 Hemoglobin 8.9 Hematocrit 26.6 Mean Corpuscular Volume 93.6 Mean Corpuscular Hemoglobin 31.2 Mean Corpuscular Hemoglobin 33.3 Concent Red Cell Distribution Width 14.1 Platelet Count 202 Mean Platelet Volume 7.7 Neutrophils (%) (Auto) 69.2 Lymphocytes (%) (Auto) 14.9 Monocytes (%) (Auto) 13.2 Eosinophils (%) (Auto) 2.4 Basophils (%) (Auto) 0.3 Neutrophils # (Auto) 5.8 Lymphocytes # (Auto) 1.2 Monocytes # (Auto) 1.1 Eosinophils # (Auto) 0.2 Basophils # (Auto) 0.0 CBC Comment DIFF FINAL Differential Comment Sodium Level 139 Potassium Level 3.9 Chloride Level 107 Carbon Dioxide Level 25.2 Anion Gap 7 Blood Urea Nitrogen 4 Creatinine 0.69 Estimat Glomerular Filtration 87 Rate Random Glucose 101 Calcium Level 7.6 Date/Time Procedure Status Source Growth 08/24/16 09:00 Aerobic Blood Culture - Preliminary Resulted Blood Peripheral NO GROWTH IN 4 DAYS 08/24/16 09:00 Anaerobic Blood Culture - Preliminary Resulted Blood Peripheral NO GROWTH IN 4 DAYS Cardiovascular: Regular Lungs: Clear Abdomen: Other (soft mild ttp, no rebound) A/P Assessment and Plan 56 year old female with abdominal pain, severe constipation, dilated loops of small bowel -NGT to JULIA MARINELLI pending this am -Zofran PRN for nausea -Will follow abdominal exams -Will continue non op treatment Benjie iLm MD Aug 29, 2016 07:59
[2016-08-29] MEDS: BUDESONIDE-FORMOTEROL 80/4.5 MCG INHALER INH SCH ×2 (08:02→20:48)
[2016-08-29] MEDS: DOCUSATE SODIUM 100 MG/10 ML UDC PO SCH ×2 (08:04→20:49)
[2016-08-29] MEDS: POLYETHYLENE GLYCOL 17 GM PKG PO SCH (08:05)
[2016-08-29] MEDS: PANTOPRAZOLE SODIUM 40 MG VIAL IV SCH (08:05)
[2016-08-29] MEDS: LACTULOSE SYRUP 20 GM/30 ML CUP PO SCH (08:06)
[2016-08-29] MEDS: SENNOSIDES SYRUP 8.8 MG/5 ML CUP PO SCH (08:07)
[2016-08-29] MEDS: SODIUM CHLORIDE 0.9% FLUSH 10 ML FLUSH IV FLUSH SCH ×2 (08:08→20:49)
[2016-08-29] MEDS: HEPARIN SODIUM - SQ 10,000 UNITS/ML VIAL SQ SCH ×2 (08:08→20:48)
[2016-08-29] MEDS: ONDANSETRON HCL 4 MG/2 ML VIAL IV PRN ×2 (09:12→21:04)
--- NOTE | 2016-08-29 09:15 | RADRPT ---
EXAM DATE/TIME: 08/29/2016 08:52 [facility] COMPARISON: CT ABDOMEN & PELVIS W/O CONTRAST, August 24, 2016, 6:05. ABDOMEN KUB ONLY, August 28, 2016, 10:14. ABDO MEN FLAT & UPRIGHT, August 28, 2016, 3:08. INDICATIONS : Abdominal distention. MEDICAL HISTORY : Chronic obstructive pulmonary disease. SURGICAL HISTORY : Tubal ligation, lumbar surgery ENCOUNTER: Subsequent ACUITY: 1 month PAIN SCORE: 7/10 LOCATION: Bilateral abdomen FINDINGS: Supine and upright views of the abdomen were performed. The abdominal bowel gas pattern is nonspecif ic with some mildly dilated air-filled loops of small and large bowel. There does appear to be some a ir-fluid levels present on the upright study. There is an NG tube in the stomach. The lung bases are grossly clear. There is no evidence of free air. The overall pattern is not significantly changed com pared to the prior study. CONCLUSION: 1. NG tube in the stomach. 2. Nonspecific bowel gas pattern with some air-filled loops of mildly dilated small and large bowel w ith some air-fluid levels in the small bowel. 3. No evidence of free air. Sourav Ward MD on August 29, 2016 at 9:10 Board Certified Radiologist. This report was verified electronically.
--- NOTE | 2016-08-29 09:25 | HHI.GIFU ---
Subjective Remarks alert NGT in place feeling better Objective Vitals I&O Vital Signs Date Time Temp Pulse Resp B/P Pulse Ox O2 Delivery O2 Flow Rate FiO2 08/29/16 00:00 99.0 76 18 146/83 98 08/28/16 21:14 98.8 75 20 164/80 98 08/28/16 20:15 Room Air 08/28/16 16:00 99.3 77 20 138/63 98 08/28/16 15:00 72 16 147/66 97 08/28/16 14:00 71 25 129/61 96 08/28/16 13:00 75 24 155/68 98 08/28/16 12:00 97.6 69 17 158/70 97 I/O 08/28/16 08/28/16 08/28/16 08/29/16 08/29/16 08/29/16 07:00 15:00 23:00 07:00 15:00 23:00 Intake Total 780 ml 775 ml 1008 ml Output Total 350 ml 550 ml 300 ml Balance 430 ml 225 ml 708 ml Intake Oral 120 ml 100 ml 1008 ml IV Total 660 ml 675 ml Output Urine Total 350 ml 500 ml Gastric Drainage Total 50 ml 300 ml # Bowel Movements 5 2 2 Laboratory Laboratory Tests Test 08/29/16 04:53 White Blood Count 8.3 Red Blood Count 2.84 Hemoglobin 8.9 Hematocrit 26.6 Mean Corpuscular Volume 93.6 Mean Corpuscular Hemoglobin 31.2 Mean Corpuscular Hemoglobin 33.3 Concent Red Cell Distribution Width 14.1 Platelet Count 202 Mean Platelet Volume 7.7 Neutrophils (%) (Auto) 69.2 Lymphocytes (%) (Auto) 14.9 Monocytes (%) (Auto) 13.2 Eosinophils (%) (Auto) 2.4 Basophils (%) (Auto) 0.3 Neutrophils # (Auto) 5.8 Lymphocytes # (Auto) 1.2 Monocytes # (Auto) 1.1 Eosinophils # (Auto) 0.2 Basophils # (Auto) 0.0 CBC Comment DIFF FINAL Differential Comment Sodium Level 139 Potassium Level 3.9 Chloride Level 107 Carbon Dioxide Level 25.2 Anion Gap 7 Blood Urea Nitrogen 4 Creatinine 0.69 Estimat Glomerular Filtration 87 Rate Random Glucose 101 Calcium Level 7.6 Imaging Last Impressions Chest X-Ray 08/28/16 0600 Signed Impressions: Service Date/Time: August 03:03 - CONCLUSION: Hyperinflation which can be seen with COPD. No evidence for an infiltrate. . Fidencio Key MD Abdomen X-Ray 08/28/16 0000 Signed Impressions: Service Date/Time: , August 28, 2016 10:14 - CONCLUSION: 1. There is an NG tube in the stomach. 2. Overall improvement of patient bowel gas pattern. Sourav Ward MD Enema w/Water Soluble 08/25/16 0000 Signed Impressions: Service Date/Time: Thursday, August 25, 2016 14:13 - CONCLUSION: Moderate stool throughout the colon. Otherwise, unremarkable Gastrografin enema. Sourav Ward MD Abdomen/Pelvis CT 08/24/16 0342 Signed Impressions: Service Date/Time: Wednesday, August 24, 2016 06:05 - CONCLUSION: There is marked distention and fluid filled stomach and small bowel. There is stool throughout the colon distally. No obvious wall thickening or pneumatosis identified. No visible evidence of colitis or ischemic bowel. Neto Zambrano MD Physical Exam CHEST: Chest is clear to auscultation and percussion. CARDIAC: Regular rate and rhythm with no murmur gallop or rubs. ABDOMEN: Soft,less distended and no tympany , no rebound ..; BS pos EXTREMITIES: No clubbing, cyanosis, or edema. SKIN: Normal; no rash; no jaundice. Assessment and Plan Assessment: (1) Abdominal pain (2) Constipation (3) Adynamic ileus Plan Continue present therapy overall improved...d/c lactulose Problem Qualifiers (1) Abdominal pain: Qualified Code: R10.30 - Lower abdominal pain (2) Constipation: Qualified Code: K59.04 - Chronic idiopathic constipation Kristofer Moreno MD Aug 29, 2016 09:25
--- NOTE | 2016-08-29 10:33 | HHI.PR ---
Subjective Remarks Follow-up for severe constipation and intractable emesis Patient denies any nausea vomiting. She tolerated oral diet. Deny need abdominal pain. She has no complaints. Patient's nurse is at the bedside during the interview. Objective Vitals Vital Signs Date Time Temp Pulse Resp B/P Pulse Ox O2 Delivery O2 Flow Rate FiO2 08/29/16 08:10 94 Room Air 08/29/16 00:00 99.0 76 18 146/83 98 08/28/16 21:14 98.8 75 20 164/80 98 08/28/16 20:15 Room Air 08/28/16 16:00 99.3 77 20 138/63 98 08/28/16 15:00 72 16 147/66 97 08/28/16 14:00 71 25 129/61 96 08/28/16 13:00 75 24 155/68 98 08/28/16 12:00 97.6 69 17 158/70 97 I/O 08/28/16 08/28/16 08/28/16 08/29/16 08/29/16 08/29/16 07:00 15:00 23:00 07:00 15:00 23:00 Intake Total 780 ml 775 ml 1008 ml Output Total 350 ml 550 ml 300 ml Balance 430 ml 225 ml 708 ml Intake Oral 120 ml 100 ml 1008 ml IV Total 660 ml 675 ml Output Urine Total 350 ml 500 ml Gastric Drainage Total 50 ml 300 ml # Bowel Movements 5 2 2 Result Diagram: 08/29/16 0453 08/29/16 0453 Objective Remarks GENERAL: in NAD and looks a lot more comfortable. CARDIOVASCULAR: Regular rate and rhythm without murmurs, gallops, or rubs. RESPIRATORY: Breath sounds equal bilaterally. No accessory muscle use. GASTROINTESTINAL: Abdomen soft, nondistended and nontender. No peritoneal signs. MUSCULOSKELETAL: No cyanosis, or edema. BACK: Nontender without obvious deformity. No CVA tenderness. Medications and IVs Current Medications Ondansetron HCl 4 mg 4 mg ONCE ONCE IVP Last administered on 08/24/16 02:31; Start 08/24/16 at 01:30; Stop 08/24/16 at 01:31; Status DC Sodium Chloride (NS 1000 ml Inj) 1,000 ml @ 1,000 mls/hr Q1H IV Last administered on 08/24/16 01:53; Start 08/24/16 at 01:19; Stop 08/24/16 at 02:18; Status DC Sodium Chloride (NS Flush) 2 ml UNSCH PRN IV FLUSH FLUSH AFTER USING IV ACCESS ; Start 08/24/16 at 01:30; Stop 08/24/16 at 08:41; Status DC Hydromorphone HCl (Dilaudid Pf Inj) 0.05 mg ONCE ONCE IVS ; Start 08/24/16 at 01 :30; Stop 08/24/16 at 01:31; Status Cancel Hydromorphone HCl (Dilaudid Pf Inj) 0.5 mg ONCE ONCE IVS Last administered on 08/24/16 02:32; Start 08/24/16 at 02:30; Stop 08/24/16 at 02:31; Status DC Diatrizoate Meglum/ Diatrizoate Sod ( Gastroemma Liq) 18 ml STK-MED ONCE .ROUTE Last administered on 08/24/16 04:23; Start 08/24/16 at 04:19; Stop at 04:20; Status DC Hydromorphone HCl 1 mg 1 mg ONCE ONCE IVS Last administered on 08/24/16 04:33 ; Start 08/24/16 at 04:30; Stop 08/24/16 at 04:31; Status DC Sodium Chloride 1,000 ml @ 999 mls/hr BOLUS ONCE IV Last administered on 04:37; Start 08/24/16 at 04:45; Stop 08/24/16 at 05:45; Status DC Piperacillin Sod/ Tazobactam Sod 50 ml @ 100 mls/hr ONCE ONCE IV Last administered on 08/24/16 07:30; Start 08/24/16 at 07:30; Stop 08/24/16 at 07:59; Status DC Sodium Chloride (NS 1000 ml Inj) 1,000 ml @ 84 mls/hr [id number] IV Last administered on 08/25/16 08:50; Start 08/24/16 at 09:00; Stop 08/25/16 at 12:00; Status DC Sodium Chloride (NS Flush) 2 ml UNSCH PRN IV FLUSH FLUSH AFTER USING IV ACCESS Last administered on 08/28/16 08:11; Start 08/24/16 at 08:30 Sodium Chloride (NS Flush) 2 ml BID IV FLUSH Last administered on 08/28/16 08: 11; Start 08/24/16 at 09:00 Acetaminophen (Tylenol) 650 mg Q6H PRN PO PAIN 1-2 AND/OR FEVER >101F; Start at 08:30; Status Hold Pantoprazole Sodium (Protonix Inj) 40 mg DAILY IV Last administered on 08:05; Start 08/24/16 at 09:00 Ondansetron HCl (Zofran Inj) 4 mg Q6H PRN IV NAUSEA OR VOMITING Last administered on 08/29/16 09:12; Start 08/24/16 at 08:30 Albuterol/ Ipratropium (Duoneb Neb) 1 ampule Q4HR NEB INH ; Start 08/24/16 at 12 :00; Stop 08/28/16 at 12:00; Status DC Albuterol Sulfate (Albuterol Neb) 2.5 mg Q2HR NEB PRN INH SOB/WHEEZING; Start 08/24/16 at 08:30 Heparin Sodium (Porcine) (Heparin Inj) 5,000 units Q12H SQ Last administered on 08/29/16 08:08; Start 08/24/16 at 09:00 Miscellaneous Information 1 Q361D XX ; Start 08/24/16 at 08:30 Chlorhexidine Gluconate (Chlorhexidine 2% Cloth) 3 pack Taper DAILY@04 TOP Last administered on 08/28/16 04:00; Start 08/25/16 at 04:00; Stop 08/21/17 at 03 :59 Chlorhexidine Gluconate (Chlorhexidine 2% Cloth) 3 pack UNSCH PRN TOP HYGIENIC CARE; Start 08/24/16 at 08:30 Hydromorphone HCl (Dilaudid Pf Inj) 0.5 mg Q3H PRN IV PUSH PAIN SCALE 1 TO 5 Last administered on 08/25/16 05:39; Start 08/24/16 at 08:45; Stop 08/26/16 at 16: 26; Status DC Hydromorphone HCl 1 mg 1 mg Q3H PRN IV PUSH PAIN SCALE 6 TO 10 Last administered on 08/26/16 16:13; Start 08/24/16 at 08:45; Stop 08/26/16 at 16:27; Status DC Piperacillin Sod/ Tazobactam Sod (Zosyn 2.25 Gm Premix) 50 ml @ 100 mls/hr Q6H IV ; Start 08/24/16 at 08:45; Stop 08/24/16 at 09:33; Status DC Acetaminophen (Ofirmev Inj) 1,000 mg Q6H PRN IV fever; Start 08/24/16 at 08:45; Stop 08/25/16 at 08:44; Status DC Methylnaltrexone [place] (Relistor Inj) 12 mg ONCE ONCE SQ Last administered on 08/24/16 12:04; Start 08/24/16 at 08:45; Stop 08/24/16 at 09:24; Status DC Glycerin (Glycerin Adult Supp) 2 gm BID PRN RECTAL CONSTIPATION Last administered on 08/25/16 09:09; Start 08/24/16 at 08:45 Lactulose (Lactulose Liq) 30 ml QID PO Last administered on 08/28/16 08:12; Start 08/24/16 at 09:00; Stop 08/29/16 at 09:28; Status DC Polyethylene Glycol (Miralax) 17 gm DAILY PO Last administered on 08/28/16 08: 12; Start 08/24/16 at 09:00 Docusate Sodium (Colace Liq) 100 mg Q12HR PO Last administered on 08/29/16 08: 04; Start 08/24/16 at 09:00 Sennosides (Senna Liq) 8.8 mg DAILY PO Last administered on 08/28/16 08:12; Start 08/24/16 at 09:00 Lorazepam (Ativan Inj) 1 mg Q6H PRN IV PUSH anxiety; Start 08/24/16 at 08:45 Hydralazine HCl (Apresoline Inj) 10 mg Q1HR PRN IV PUSH SBP>160, DBP>90; Start 08/24/16 at 08:45 Nitroglycerin (Nitroglycerin 2% Oint) 1 inch Q6HR PRN TOPICAL SBP>160, DBP>90; Start 08/24/16 at 08:45 Labetalol HCl 10 mg 10 mg Q1HR PRN IV PUSH SBP>160, DBP>90, HR>65; Start at 08:45 Sodium Chloride 1,000 ml @ 999 mls/hr BOLUS ONCE IV Last administered on 08:45; Start 08/24/16 at 08:45; Stop 08/24/16 at 09:45; Status DC Sodium Chloride 1,000 ml @ 999 mls/hr BOLUS ONCE IV Last administered on 09:16; Start 08/24/16 at 08:45; Stop 08/24/16 at 09:45; Status DC Piperacillin Sod/ Tazobactam Sod (Zosyn 2.25 Gm Premix) 50 ml @ 100 mls/hr Q6H IV Last administered on 08/29/16 08:03; Start 08/24/16 at 14:00 Magnesium Citrate (Citroma Liq) 300 ml Q6H PO Last administered on 08/25/16 02: 10; Start 08/24/16 at 20:00; Stop 08/25/16 at 02:01; Status DC Bisacodyl 10 mg 10 mg Q3H PO Last administered on 08/25/16 03:44; Start at 00:00; Stop 08/25/16 at 03:01; Status DC Dextrose/Sodium Chloride (D5W-NS 1000 ml Inj) 1,000 ml @ 75 mls/hr [id number] IV Last administered on 08/26/16 05:50; Start 08/25/16 at 12:00; Stop 08/26/16 at 10: 46; Status DC Dextrose (D50w (Vial) Inj) 50 ml UNSCH PRN IV HYPOGLYCEMIA-SEE COMMENTS; Start 08/25/16 at 12:00; Stop 08/28/16 at 15:04; Status DC Glucagon (Glucagon Inj) 1 mg UNSCH PRN OTHER HYPOGLYCEMIA-SEE COMMENTS; Start 08/25/16 at 12:00; Stop 08/28/16 at 15:04; Status DC Insulin Human Regular (NovoLIN R SUPPLEMENTAL SCALE) 1 Q4H SQ ; Start 08/25/16 at 12:00; Stop 08/28/16 at 15:04; Status DC Budesonide/ Formoterol Fumarate (Symbicort 80-4.5 Mcg Inh) 1 puff Q12HR INH Last administered on 08/26/16 20:43; Start 08/25/16 at 21:00 Diatrizoate Meglum/ Diatrizoate Sod 740 ml 740 ml STK-MED ONCE RECTAL Last administered on 08/25/16 14:20; Start 08/25/16 at 14:20; Stop 08/25/16 at 14:47; Status DC Potassium Chloride/Dextrose/ Sod Cl 1,000 ml @ 70 mls/hr [id number] IV Last administered on 08/29/16 01:15; Start 08/26/16 at 10:45 Potassium Chloride (KCl 10 Meq Premix Inj) 100 ml @ 100 mls/hr Q1H IV Last administered on 08/26/16 14:48; Start 08/26/16 at 11:00; Stop 08/26/16 at 13:59; Status DC Hydromorphone HCl (Dilaudid Pf Inj) 0.25 mg Q4HR PRN IV PUSH PAIN SCALE 1 TO 5 ; Start 08/26/16 at 20:00; Stop 08/27/16 at 15:34; Status DC Hydromorphone HCl (Dilaudid Pf Inj) 0.5 mg Q3H PRN IV PUSH PAIN SCALE 6 TO 10; Start 08/26/16 at 17:45; Stop 08/26/16 at 17:45; Status DC Hydromorphone HCl (Dilaudid Pf Inj) 0.5 mg Q4HR PRN IV PUSH PAIN SCALE 6 TO 10 Last administered on 08/27/16 04:29; Start 08/26/16 at 20:00; Stop 08/27/16 at 15: 35; Status DC Simethicone (Phazyme Chew) 125 mg Q8HR PO Last administered on 08/29/16 05:08; Start 08/27/16 at 14:00 Metronidazole (Flagyl) 250 mg Q8HR PO Last administered on 08/28/16 06:36; Start 08/27/16 at 14:00; Status Hold Hydromorphone HCl (Dilaudid Pf Inj) 0.125 mg Q4H PRN IV PUSH PAIN SCALE 4 TO 10 Last administered on 08/28/16 14:43; Start 08/27/16 at 15:45; Stop 08/28/16 at 15:04; Status DC Potassium Chloride (KCl) 30 meq ONCE ONCE PO Last administered on 08/27/16 16: 08; Start 08/27/16 at 16:00; Stop 08/27/16 at 16:01; Status DC Metronidazole 250 mg 250 mg ONCE ONCE PO Last administered on 08/27/16 22:22; Start 08/27/16 at 22:30; Stop 08/27/16 at 22:31; Status DC Metronidazole (Flagyl 500 Mg Inj) 100 ml @ 100 mls/hr Q8H IV Last administered on 08/29/16 05:08; Start 08/28/16 at 14:00 Acetaminophen/ Hydrocodone Bitart ([place] 5-325 Mg) 1 tab Q6H PRN PO PAIN 3-8; Start 08/28/16 at 15:15 Acetaminophen/ Hydrocodone Bitart ([place] 5-325 Mg) 2 tab Q6H PRN PO pain 9-10 ; Start 08/28/16 at 15:15 Hydromorphone HCl (Dilaudid Pf Inj) 0.2 mg ONCE ONCE IV PUSH Last administered on 08/28/16 21:44; Start 08/28/16 at 22:00; Stop 08/28/16 at 22:01; Status DC Date of Removal: Aug 27, 2016 A/P Problem List: (1) Atherosclerotic plaque ICD Code: I70.90 Status: Acute (2) Obstipation ICD Code: K59.00 Status: Acute (3) Elevated AST (SGOT) ICD Code: R74.0 Status: Acute (4) COPD (chronic obstructive pulmonary disease) ICD Code: J44.9 Status: Acute (5) Lactic acidosis ICD Code: E87.2 Status: Acute (6) Elevated amylase ICD Code: R74.8 Status: Acute (7) Tetrahydrocannabinol (THC) use disorder, mild, abuse ICD Code: F12.10 Status: Acute (8) Leukocytosis ICD Code: D72.829 Status: Acute (9) Acute kidney injury ICD Code: N17.9 Status: Acute (10) Abdominal pain ICD Code: R10.9 Status: Acute (11) Body mass index less than 16.5 ICD Code: Z68.1 Status: Acute (12) Tobacco abuse ICD Code: Z72.0 Status: Chronic (13) Anxiety ICD Code: F41.9 Status: Chronic (14) Neutrophilic leukocytosis ICD Code: D72.9 Status: Acute (15) Dyslipidemia ICD Code: E78.5 Status: Acute (16) Cachectic ICD Code: R64 Status: Acute (17) SIRS (systemic inflammatory response syndrome) ICD Code: R65.10 Status: Acute Assessment and Plan 56 years old female presenting with Sepsis/SIRs secondary to acute abdominal process- severe constipation Persistent leukocytosis- trending down -lactic acid level down. -Continue IVF Abdominal pain - secondary to severe constipation- ? History of pain meds use- per staff- patient denies this at bedside -GI ff/GS and recommend conservative management. -Pain meds makes constipation worse will try to avoid pain medication if possible. -Serial imaging and abdominal exam. -Symptoms improved drastically with NG tube. Acute Kidney Injury- resolved Hypokalemia- improved -continue IVF - replace with IV Kcl History of PUD -on PPI History of Anxiety disorder - Continue with current regimen. Discharge Planning Patient still has NG tube placed and requires continual hospitalization. Problem Qualifiers (1) COPD (chronic obstructive pulmonary disease): Qualified Code: J44.9 - Chronic obstructive pulmonary disease, unspecified COPD type (2) Leukocytosis: Qualified Code: D72.825 - Bandemia (3) Abdominal pain: Qualified Code: R10.30 - Lower abdominal pain Zoie Mercado MD Aug 29, 2016 10:33
[2016-08-29] MEDS: ACETAMINOPHEN/HYDROcodone 325 MG/5 MG TAB PO PRN (20:49)
[2016-08-30] MEDS: PIPERACIL-TAZO 2.25 GM PREMIX 50 ML IV SCH ×6 (01:43→20:27)
[2016-08-30] MEDS: CHLORHEXIDINE GLUCONATE 2 % 1 PACK (2 CLOTHS) TOP SCH (01:44)
[2016-08-30 04:00] VITALS: BP 131/68; PULSE 79; RESP 17; TEMP 97.9; O2SAT 97
[2016-08-30] MEDS: SIMETHICONE 125 MG CHEWABLE TAB PO SCH ×3 (05:34→22:44)
[2016-08-30] MEDS: metroNIDAZOLE 500 MG INJ 100 ML IV SCH ×3 (05:34→22:45)
[2016-08-30 08:00] VITALS: BP 151/68; PULSE 70; RESP 16; TEMP 97.7; O2SAT 99
[2016-08-30] MEDS: PANTOPRAZOLE SODIUM 40 MG VIAL IV SCH ×3 (08:35→10:08)
[2016-08-30] MEDS: HEPARIN SODIUM - SQ 10,000 UNITS/ML VIAL SQ SCH ×2 (08:35→20:22)
[2016-08-30] MEDS: DOCUSATE SODIUM 100 MG/10 ML UDC PO SCH ×2 (08:35→20:21)
[2016-08-30] MEDS: POLYETHYLENE GLYCOL 17 GM PKG PO SCH (08:35)
[2016-08-30] MEDS: SENNOSIDES SYRUP 8.8 MG/5 ML CUP PO SCH (08:35)
[2016-08-30] MEDS: BUDESONIDE-FORMOTEROL 80/4.5 MCG INHALER INH SCH ×2 (08:36→20:19)
[2016-08-30] MEDS: SODIUM CHLORIDE 0.9% FLUSH 10 ML FLUSH IV FLUSH SCH ×2 (08:36→20:25)
--- NOTE | 2016-08-30 08:55 | HHI.PR ---
Subjective Remarks Follow-up for intractable emesis and severe constipation Patient stated that last night she had beef broth and that increase her nausea. Deny need to abdominal pain. Her nurse is at the bedside. Patient remains afebrile. Objective Vitals Vital Signs Date Time Temp Pulse Resp B/P Pulse Ox O2 Delivery O2 Flow Rate FiO2 08/30/16 08:00 97.7 70 16 151/68 99 08/30/16 04:00 97.9 79 17 131/68 97 08/29/16 23:31 99.5 73 17 144/65 95 08/29/16 21:45 20 08/29/16 20:20 99.5 78 16 155/74 96 08/29/16 20:00 Room Air 08/29/16 16:00 98.8 73 17 145/70 97 08/29/16 15:02 18 08/29/16 12:00 97.8 64 17 142/65 98 08/29/16 10:15 96 21 I/O 08/29/16 08/29/16 08/29/16 08/30/16 08/30/16 08/30/16 07:00 15:00 23:00 07:00 15:00 23:00 Intake Total 1008 ml 716 ml 120 ml 420 ml Output Total 300 ml 300 ml Balance 708 ml 416 ml 120 ml 420 ml Intake Oral 1008 ml 716 ml 120 ml 120 ml IV Total 300 ml Output Urine Total 100 ml Gastric Drainage Total 300 ml 200 ml # Voids 3 2 # Bowel Movements 2 2 2 Result Diagram: 08/29/16 0453 08/29/16 0453 Objective Remarks GENERAL: in NAD CARDIOVASCULAR: Regular rate and rhythm without murmurs, gallops, or rubs. RESPIRATORY: Breath sounds equal bilaterally. No accessory muscle use. GASTROINTESTINAL: Abdomen soft, nondistended and nontender. No peritoneal signs. MUSCULOSKELETAL: No cyanosis, or edema. BACK: Nontender without obvious deformity. No CVA tenderness. Medications and IVs Current Medications Ondansetron HCl 4 mg 4 mg ONCE ONCE IVP Last administered on 08/24/16 02:31; Start 08/24/16 at 01:30; Stop 08/24/16 at 01:31; Status DC Sodium Chloride (NS 1000 ml Inj) 1,000 ml @ 1,000 mls/hr Q1H IV Last administered on 08/24/16 01:53; Start 08/24/16 at 01:19; Stop 08/24/16 at 02:18; Status DC Sodium Chloride (NS Flush) 2 ml UNSCH PRN IV FLUSH FLUSH AFTER USING IV ACCESS ; Start 08/24/16 at 01:30; Stop 08/24/16 at 08:41; Status DC Hydromorphone HCl (Dilaudid Pf Inj) 0.05 mg ONCE ONCE IVS ; Start 08/24/16 at 01 :30; Stop 08/24/16 at 01:31; Status Cancel Hydromorphone HCl (Dilaudid Pf Inj) 0.5 mg ONCE ONCE IVS Last administered on 08/24/16 02:32; Start 08/24/16 at 02:30; Stop 08/24/16 at 02:31; Status DC Diatrizoate Meglum/ Diatrizoate Sod ( Gastroview Liq) 18 ml STK-MED ONCE .ROUTE Last administered on 08/24/16 04:23; Start 08/24/16 at 04:19; Stop at 04:20; Status DC Hydromorphone HCl 1 mg 1 mg ONCE ONCE IVS Last administered on 08/24/16 04:33 ; Start 08/24/16 at 04:30; Stop 08/24/16 at 04:31; Status DC Sodium Chloride 1,000 ml @ 999 mls/hr BOLUS ONCE IV Last administered on 04:37; Start 08/24/16 at 04:45; Stop 08/24/16 at 05:45; Status DC Piperacillin Sod/ Tazobactam Sod 50 ml @ 100 mls/hr ONCE ONCE IV Last administered on 08/24/16 07:30; Start 08/24/16 at 07:30; Stop 08/24/16 at 07:59; Status DC Sodium Chloride (NS 1000 ml Inj) 1,000 ml @ 84 mls/hr [id number] IV Last administered on 08/25/16 08:50; Start 08/24/16 at 09:00; Stop 08/25/16 at 12:00; Status DC Sodium Chloride (NS Flush) 2 ml UNSCH PRN IV FLUSH FLUSH AFTER USING IV ACCESS Last administered on 08/28/16 08:11; Start 08/24/16 at 08:30 Sodium Chloride (NS Flush) 2 ml BID IV FLUSH Last administered on 08/29/16 20: 49; Start 08/24/16 at 09:00 Acetaminophen (Tylenol) 650 mg Q6H PRN PO PAIN 1-2 AND/OR FEVER >101F; Start at 08:30; Status Hold Pantoprazole Sodium (Protonix Inj) 40 mg DAILY IV Last administered on 08:35; Start 08/24/16 at 09:00 Ondansetron HCl (Zofran Inj) 4 mg Q6H PRN IV NAUSEA OR VOMITING Last administered on 08/29/16 21:04; Start 08/24/16 at 08:30 Albuterol/ Ipratropium (Duoneb Neb) 1 ampule Q4HR NEB INH ; Start 08/24/16 at 12 :00; Stop 08/28/16 at 12:00; Status DC Albuterol Sulfate (Albuterol Neb) 2.5 mg Q2HR NEB PRN INH SOB/WHEEZING; Start 08/24/16 at 08:30 Heparin Sodium (Porcine) (Heparin Inj) 5,000 units Q12H SQ Last administered on 08/30/16 08:35; Start 08/24/16 at 09:00 Miscellaneous Information 1 Q361D XX ; Start 08/24/16 at 08:30 Chlorhexidine Gluconate (Chlorhexidine 2% Cloth) Taper DAILY@04 TOP Last administered on 08/28/16 04:00; Start 08/25/16 at 04:00; Stop 08/21/17 at 03:59 Chlorhexidine Gluconate (Chlorhexidine 2% Cloth) 3 pack UNSCH PRN TOP HYGIENIC CARE; Start 08/24/16 at 08:30 Hydromorphone HCl (Dilaudid Pf Inj) 0.5 mg Q3H PRN IV PUSH PAIN SCALE 1 TO 5 Last administered on 08/25/16 05:39; Start 08/24/16 at 08:45; Stop 08/26/16 at 16: 26; Status DC Hydromorphone HCl 1 mg 1 mg Q3H PRN IV PUSH PAIN SCALE 6 TO 10 Last administered on 08/26/16 16:13; Start 08/24/16 at 08:45; Stop 08/26/16 at 16:27; Status DC Piperacillin Sod/ Tazobactam Sod (Zosyn 2.25 Gm Premix) 50 ml @ 100 mls/hr Q6H IV ; Start 08/24/16 at 08:45; Stop 08/24/16 at 09:33; Status DC Acetaminophen (Ofirmev Inj) 1,000 mg Q6H PRN IV fever; Start 08/24/16 at 08:45; Stop 08/25/16 at 08:44; Status DC Methylnaltrexone [place] (Relistor Inj) 12 mg ONCE ONCE SQ Last administered on 08/24/16 12:04; Start 08/24/16 at 08:45; Stop 08/24/16 at 09:24; Status DC Glycerin (Glycerin Adult Supp) 2 gm BID PRN RECTAL CONSTIPATION Last administered on 08/25/16 09:09; Start 08/24/16 at 08:45 Lactulose (Lactulose Liq) 30 ml QID PO Last administered on 08/28/16 08:12; Start 08/24/16 at 09:00; Stop 08/29/16 at 09:28; Status DC Polyethylene Glycol (Miralax) 17 gm DAILY PO Last administered on 08/30/16 08: 35; Start 08/24/16 at 09:00 Docusate Sodium (Colace Liq) 100 mg Q12HR PO Last administered on 08/30/16 08: 35; Start 08/24/16 at 09:00 Sennosides (Senna Liq) 8.8 mg DAILY PO Last administered on 08/30/16 08:35; Start 08/24/16 at 09:00 Lorazepam (Ativan Inj) 1 mg Q6H PRN IV PUSH anxiety; Start 08/24/16 at 08:45 Hydralazine HCl (Apresoline Inj) 10 mg Q1HR PRN IV PUSH SBP>160, DBP>90; Start 08/24/16 at 08:45 Nitroglycerin (Nitroglycerin 2% Oint) 1 inch Q6HR PRN TOPICAL SBP>160, DBP>90; Start 08/24/16 at 08:45 Labetalol HCl 10 mg 10 mg Q1HR PRN IV PUSH SBP>160, DBP>90, HR>65; Start at 08:45 Sodium Chloride 1,000 ml @ 999 mls/hr BOLUS ONCE IV Last administered on 08:45; Start 08/24/16 at 08:45; Stop 08/24/16 at 09:45; Status DC Sodium Chloride 1,000 ml @ 999 mls/hr BOLUS ONCE IV Last administered on 09:16; Start 08/24/16 at 08:45; Stop 08/24/16 at 09:45; Status DC Piperacillin Sod/ Tazobactam Sod (Zosyn 2.25 Gm Premix) 50 ml @ 100 mls/hr Q6H IV Last administered on 08/30/16 08:36; Start 08/24/16 at 14:00 Magnesium Citrate (Citroma Liq) 300 ml Q6H PO Last administered on 08/25/16 02: 10; Start 08/24/16 at 20:00; Stop 08/25/16 at 02:01; Status DC Bisacodyl 10 mg 10 mg Q3H PO Last administered on 08/25/16 03:44; Start at 00:00; Stop 08/25/16 at 03:01; Status DC Dextrose/Sodium Chloride (D5W-NS 1000 ml Inj) 1,000 ml @ 75 mls/hr [id number] IV Last administered on 08/26/16 05:50; Start 08/25/16 at 12:00; Stop 08/26/16 at 10: 46; Status DC Dextrose (D50w (Vial) Inj) 50 ml UNSCH PRN IV HYPOGLYCEMIA-SEE COMMENTS; Start 08/25/16 at 12:00; Stop 08/28/16 at 15:04; Status DC Glucagon (Glucagon Inj) 1 mg UNSCH PRN OTHER HYPOGLYCEMIA-SEE COMMENTS; Start 08/25/16 at 12:00; Stop 08/28/16 at 15:04; Status DC Insulin Human Regular (NovoLIN R SUPPLEMENTAL SCALE) 1 Q4H SQ ; Start 08/25/16 at 12:00; Stop 08/28/16 at 15:04; Status DC Budesonide/ Formoterol Fumarate (Symbicort 80-4.5 Mcg Inh) 1 puff Q12HR INH Last administered on 08/26/16 20:43; Start 08/25/16 at 21:00 Diatrizoate Meglum/ Diatrizoate Sod 740 ml 740 ml STK-MED ONCE RECTAL Last administered on 08/25/16 14:20; Start 08/25/16 at 14:20; Stop 08/25/16 at 14:47; Status DC Potassium Chloride/Dextrose/ Sod Cl 1,000 ml @ 70 mls/hr [id number] IV Last administered on 08/29/16 01:15; Start 08/26/16 at 10:45 Potassium Chloride (KCl 10 Meq Premix Inj) 100 ml @ 100 mls/hr Q1H IV Last administered on 08/26/16 14:48; Start 08/26/16 at 11:00; Stop 08/26/16 at 13:59; Status DC Hydromorphone HCl (Dilaudid Pf Inj) 0.25 mg Q4HR PRN IV PUSH PAIN SCALE 1 TO 5 ; Start 08/26/16 at 20:00; Stop 08/27/16 at 15:34; Status DC Hydromorphone HCl (Dilaudid Pf Inj) 0.5 mg Q3H PRN IV PUSH PAIN SCALE 6 TO 10; Start 08/26/16 at 17:45; Stop 08/26/16 at 17:45; Status DC Hydromorphone HCl (Dilaudid Pf Inj) 0.5 mg Q4HR PRN IV PUSH PAIN SCALE 6 TO 10 Last administered on 08/27/16 04:29; Start 08/26/16 at 20:00; Stop 08/27/16 at 15: 35; Status DC Simethicone (Phazyme Chew) 125 mg Q8HR PO Last administered on 08/30/16 05:34; Start 08/27/16 at 14:00 Metronidazole (Flagyl) 250 mg Q8HR PO Last administered on 08/28/16 06:36; Start 08/27/16 at 14:00; Status Hold Hydromorphone HCl (Dilaudid Pf Inj) 0.125 mg Q4H PRN IV PUSH PAIN SCALE 4 TO 10 Last administered on 08/28/16 14:43; Start 08/27/16 at 15:45; Stop 08/28/16 at 15:04; Status DC Potassium Chloride (KCl) 30 meq ONCE ONCE PO Last administered on 08/27/16 16: 08; Start 08/27/16 at 16:00; Stop 08/27/16 at 16:01; Status DC Metronidazole 250 mg 250 mg ONCE ONCE PO Last administered on 08/27/16 22:22; Start 08/27/16 at 22:30; Stop 08/27/16 at 22:31; Status DC Metronidazole (Flagyl 500 Mg Inj) 100 ml @ 100 mls/hr Q8H IV Last administered on 08/30/16 05:34; Start 08/28/16 at 14:00 Acetaminophen/ Hydrocodone Bitart ([place] 5-325 Mg) 1 tab Q6H PRN PO PAIN 3-8 Last administered on 08/29/16 14:02; Start 08/28/16 at 15:15 Acetaminophen/ Hydrocodone Bitart ([place] 5-325 Mg) 2 tab Q6H PRN PO pain 9-10 Last administered on 08/29/16 20:49; Start 08/28/16 at 15:15 Hydromorphone HCl (Dilaudid Pf Inj) 0.2 mg ONCE ONCE IV PUSH Last administered on 08/28/16 21:44; Start 08/28/16 at 22:00; Stop 08/28/16 at 22:01; Status DC Date of Removal: Aug 27, 2016 A/P Problem List: (1) Atherosclerotic plaque ICD Code: I70.90 Status: Acute (2) Obstipation ICD Code: K59.00 Status: Acute (3) Elevated AST (SGOT) ICD Code: R74.0 Status: Acute (4) COPD (chronic obstructive pulmonary disease) ICD Code: J44.9 Status: Acute (5) Lactic acidosis ICD Code: E87.2 Status: Acute (6) Elevated amylase ICD Code: R74.8 Status: Acute (7) Tetrahydrocannabinol (THC) use disorder, mild, abuse ICD Code: F12.10 Status: Acute (8) Leukocytosis ICD Code: D72.829 Status: Acute (9) Acute kidney injury ICD Code: N17.9 Status: Acute (10) Abdominal pain ICD Code: R10.9 Status: Acute (11) Body mass index less than 16.5 ICD Code: Z68.1 Status: Acute (12) Tobacco abuse ICD Code: Z72.0 Status: Chronic (13) Anxiety ICD Code: F41.9 Status: Chronic (14) Neutrophilic leukocytosis ICD Code: D72.9 Status: Acute (15) Dyslipidemia ICD Code: E78.5 Status: Acute (16) Cachectic ICD Code: R64 Status: Acute (17) SIRS (systemic inflammatory response syndrome) ICD Code: R65.10 Status: Acute Assessment and Plan 56 years old female presenting with Sepsis/SIRs secondary to acute abdominal process- severe constipation Persistent leukocytosis- trending down -lactic acid level down. -Continue IVF Abdominal pain - secondary to severe constipation- ? History of pain meds use- per staff- patient denies this at bedside -GI ff/GS and recommend conservative management. -Pain meds makes constipation worse will try to avoid pain medication if possible. -Serial imaging and abdominal exam. -Symptoms improved drastically with NG tube. Acute Kidney Injury- resolved Hypokalemia- improved -continue IVF - replace with IV Kcl History of PUD -on PPI History of Anxiety disorder - Continue with current regimen. Discharge Planning Patient requires continual hospitalization due to decreased by mouth intake and NG tube management. Problem Qualifiers (1) COPD (chronic obstructive pulmonary disease): Qualified Code: J44.9 - Chronic obstructive pulmonary disease, unspecified COPD type (2) Leukocytosis: Qualified Code: D72.825 - Bandemia (3) Abdominal pain: Qualified Code: R10.30 - Lower abdominal pain Zoie Mercado MD Aug 30, 2016 08:55
[2016-08-30] MEDS: D5-NS + KCL 20 MEQ INJ 1,000 ML IV SCH ×2 (09:24→22:45)
[2016-08-30] MEDS: ACETAMINOPHEN/HYDROcodone 325 MG/5 MG TAB PO PRN ×3 (10:06→23:19)
--- NOTE | 2016-08-30 10:28 | HHI.GIFU ---
Subjective Remarks Had hiccups/ nausea earlier today NGT was clamped and pt started on clears Objective Vitals I&O Vital Signs Date Time Temp Pulse Resp B/P Pulse Ox O2 Delivery O2 Flow Rate FiO2 08/30/16 08:00 97.7 70 16 151/68 99 08/30/16 04:00 97.9 79 17 131/68 97 08/29/16 23:31 99.5 73 17 144/65 95 08/29/16 21:45 20 08/29/16 20:20 99.5 78 16 155/74 96 08/29/16 20:00 Room Air 08/29/16 16:00 98.8 73 17 145/70 97 08/29/16 15:02 18 08/29/16 12:00 97.8 64 17 142/65 98 I/O 08/29/16 08/29/16 08/29/16 08/30/16 08/30/16 08/30/16 07:00 15:00 23:00 07:00 15:00 23:00 Intake Total 1008 ml 716 ml 120 ml 420 ml Output Total 300 ml 300 ml Balance 708 ml 416 ml 120 ml 420 ml Intake Oral 1008 ml 716 ml 120 ml 120 ml IV Total 300 ml Output Urine Total 100 ml Gastric Drainage Total 300 ml 200 ml # Voids 3 2 # Bowel Movements 2 2 2 Laboratory Laboratory Tests Test 08/26/16 08/29/16 04:17 04:53 Total Bilirubin 0.4 MG/DL Aspartate Amino Transf 75 U/L (AST/SGOT) Alanine Aminotransferase 44 U/L (ALT/SGPT) Alkaline Phosphatase 116 U/L Total Protein 5.7 GM/DL Albumin 2.2 GM/DL Amylase Level 57 U/L White Blood Count 8.3 TH/MM3 Red Blood Count 2.84 MIL/MM3 Hemoglobin 8.9 GM/DL Hematocrit 26.6 % Mean Corpuscular Volume 93.6 FL Mean Corpuscular Hemoglobin 31.2 PG Mean Corpuscular Hemoglobin 33.3 % Concent Red Cell Distribution Width 14.1 % Platelet Count 202 TH/MM3 Mean Platelet Volume 7.7 FL Neutrophils (%) (Auto) 69.2 % Lymphocytes (%) (Auto) 14.9 % Monocytes (%) (Auto) 13.2 % Eosinophils (%) (Auto) 2.4 % Basophils (%) (Auto) 0.3 % Neutrophils # (Auto) 5.8 TH/MM3 Lymphocytes # (Auto) 1.2 TH/MM3 Monocytes # (Auto) 1.1 TH/MM3 Eosinophils # (Auto) 0.2 TH/MM3 Basophils # (Auto) 0.0 TH/MM3 CBC Comment DIFF FINAL Differential Comment Sodium Level 139 MEQ/L Potassium Level 3.9 MEQ/L Chloride Level 107 MEQ/L Carbon Dioxide Level 25.2 MEQ/L Anion Gap 7 MEQ/L Blood Urea Nitrogen 4 MG/DL Creatinine 0.69 MG/DL Estimat Glomerular Filtration 87 ML/MIN Rate Random Glucose 101 MG/DL Calcium Level 7.6 MG/DL Imaging Last Impressions Abdomen X-Ray 08/29/16 0000 Signed Impressions: Service Date/Time: Monday, August 29, 2016 08:52 - CONCLUSION: 1. NG tube in the stomach. 2. Nonspecific bowel gas pattern with some air-filled loops of mildly dilated small and large bowel with some air-fluid levels in the small bowel. 3. No evidence of free air. Sourav Ward MD Chest X-Ray 08/28/16 0600 Signed Impressions: Service Date/Time: August 03:03 - CONCLUSION: Hyperinflation which can be seen with COPD. No evidence for an infiltrate. . Fidencio Key MD Enema w/Water Soluble 08/25/16 0000 Signed Impressions: Service Date/Time: Thursday, August 25, 2016 14:13 - CONCLUSION: Moderate stool throughout the colon. Otherwise, unremarkable Gastrografin enema. Sourav Ward MD Abdomen/Pelvis CT 08/24/16 0342 Signed Impressions: Service Date/Time: Wednesday, August 24, 2016 06:05 - CONCLUSION: There is marked distention and fluid filled stomach and small bowel. There is stool throughout the colon distally. No obvious wall thickening or pneumatosis identified. No visible evidence of colitis or ischemic bowel. Neto Zambrano MD Physical Exam CHEST: Chest occ rhochi CARDIAC: Regular rate and rhythm with no murmur gallop or rubs. ABDOMEN: Soft,not distended and no tympany , no rebound ..; BS pos EXTREMITIES: No clubbing, cyanosis, or edema. SKIN: Normal; no rash; no jaundice. Assessment and Plan Assessment: (1) Abdominal pain (2) Constipation (3) Adynamic ileus Plan pt has had very little progress,,,will hector abd films d/c colace, if prolonged npo may need TPN as well Problem Qualifiers (1) Abdominal pain: Qualified Code: R10.30 - Lower abdominal pain (2) Constipation: Qualified Code: K59.04 - Chronic idiopathic constipation Kristofer Moreno MD Aug 30, 2016 10:28
--- NOTE | 2016-08-30 11:17 | RADRPT ---
EXAM DATE/TIME: 08/30/2016 11:07 [facility] COMPARISON: No previous studies available for comparison. INDICATIONS : Abdominal pain. MEDICAL HISTORY : None. SURGICAL HISTORY : None. ENCOUNTER: Initial ACUITY: 1 week PAIN SCORE: 9/10 LOCATION: Left abdomen. FINDINGS: Supine and upright views of the abdomen were performed. The nasogastric tip is in the distal esophag us . The abdominal bowel gas pattern is normal with significant air throughout the small and large vitaly wel. No air fluid levels are seen. No abnormal masses, calcifications, or organomegaly is seen. Th e visualized lower lungs are clear. No evidence of free intraperitoneal gas. The osseous structures are unremarkable. CONCLUSION: Air distended bowel without any evidence of obstruction. NG tube tip in the distal esophagus. Neto Zambrano MD on August 30, 2016 at 11:14 Board Certified Radiologist. This report was verified electronically.
[2016-08-30 12:00] VITALS: BP 132/71; PULSE 68; RESP 15; TEMP 98.5; O2SAT 99
--- NOTE | 2016-08-30 12:28 | HHI.PR ---
Subjective Subjective Notes no NV no BM Objective Vitals/I&O Vital Signs Date Time Temp Pulse Resp B/P Pulse Ox O2 Delivery O2 Flow Rate FiO2 08/30/16 08:00 97.7 70 16 151/68 99 08/29/16 20:00 Room Air 08/29/16 10:15 21 Abdomen: Non-distended, Non-tender A/P Assessment and Plan 56yo female with adynamic ileus, constipation. agree with medical management may need TPN continue to follow Boniafcio Delgado MD Aug 30, 2016 12:28
[2016-08-30 16:00] VITALS: BP 152/70; PULSE 66; RESP 17; TEMP 98.9; O2SAT 99
--- NOTE | 2016-08-30 17:59 | HHI.PR ---
Subjective Remarks Alert and still C/O nausea in the Am'. No chest pains. No SOB at rest.On o2 2 L. Objective Vital Signs Date Time Temp Pulse Resp B/P Pulse Ox O2 Delivery O2 Flow Rate FiO2 08/30/16 16:00 98.9 66 17 152/70 99 08/30/16 12:00 98.5 68 15 132/71 99 08/30/16 08:00 97.7 70 16 151/68 99 08/30/16 04:00 97.9 79 17 131/68 97 08/29/16 23:31 99.5 73 17 144/65 95 08/29/16 21:45 20 08/29/16 20:20 99.5 78 16 155/74 96 08/29/16 20:00 Room Air I/O 08/29/16 08/29/16 08/29/16 08/30/16 08/30/16 08/30/16 07:00 15:00 23:00 07:00 15:00 23:00 Intake Total 1008 ml 716 ml 120 ml 420 ml 170 ml Output Total 300 ml 300 ml Balance 708 ml 416 ml 120 ml 420 ml 170 ml Intake Oral 1008 ml 716 ml 120 ml 120 ml 120 ml IV Total 300 ml 50 ml Output Urine Total 100 ml Gastric Drainage Total 300 ml 200 ml # Voids 3 2 3 # Bowel Movements 2 2 2 2 Result Diagram: 08/29/16 0453 08/29/16 0453 Objective Remarks GENERAL: This thinly built, middle-aged white female who is alert, pale and mildly dyspneic. HEENT: Head normocephalic. Pupils are reactive. Sclerae are clear Tongue is moist. Throat is clear. NECK: Supple. No bruits, lymphadenopathy or thyromegaly. CHEST: Equal movements with an increased AP diameter with wheezes bilaterally. HEART: The heart sounds are regular S1-S2. No murmur. No S3. ABDOMEN: Soft, protuberant. No mass. No organomegaly, and mild distention. and mild lower quadrant tenderness. Bowel sounds are active. EXTREMITIES: No peripheral edema. There is muscle wasting of the extremities. NEUROLOGICALLY: She is moving all her extremities. Reflexes are 1+. There is no gross motor deficit. Cranial nerves are grossly intact. The patient is awake and oriented. Skin was dry and scaly. RECTAL EXAM: Deferred. Assessment and Plan Assessment and Plan IMPRESSION 1. Chronic constipation. 2. Obstipation. 3. COPD with acute exacerbation. 4. Acute kidney injury, resolved. 5. Chronic left lung density with fibrotic scarring and bronchiectasis. 6. Nicotine dependency. 7. Hypertension. Plan : 1. Continue O2 at 2 L prn. 2. D/C Nebs and use Spiriva 1 cap daily 3. NG with Int suction 4. Continue antibiotics. 5. CBC, ,BMP in am 6. PO Liquids per GI Nahum Ross MD Aug 30, 2016 17:59
[2016-08-30] MEDS: ONDANSETRON HCL 4 MG/2 ML VIAL IV PRN (18:35)
[2016-08-30 20:00] VITALS: BP 152/69; PULSE 68; RESP 17; TEMP 98.9; O2SAT 94
[2016-08-31] VITALS: BP 135/71; PULSE 72; RESP 18; TEMP 98.9; O2SAT 96
[2016-08-31] MEDS: PIPERACIL-TAZO 2.25 GM PREMIX 50 ML IV SCH ×4 (02:00→19:49)
[2016-08-31] MEDS: CHLORHEXIDINE GLUCONATE 2 % 1 PACK (2 CLOTHS) TOP SCH (04:00)
[2016-08-31] MEDS: SIMETHICONE 125 MG CHEWABLE TAB PO SCH ×3 (05:16→19:47)
[2016-08-31] MEDS: metroNIDAZOLE 500 MG INJ 100 ML IV SCH ×3 (05:20→19:47)
[2016-08-31 08:00] VITALS: BP 139/69; PULSE 67; RESP 16; TEMP 98; O2SAT 99
[2016-08-31] MEDS: PANTOPRAZOLE SODIUM 40 MG VIAL IV SCH (08:11)
[2016-08-31] MEDS: BUDESONIDE-FORMOTEROL 80/4.5 MCG INHALER INH SCH ×2 (08:11→19:48)
[2016-08-31] MEDS: POLYETHYLENE GLYCOL 17 GM PKG PO SCH (08:12)
[2016-08-31] MEDS: DOCUSATE SODIUM 100 MG/10 ML UDC PO SCH (08:12)
[2016-08-31] MEDS: SODIUM CHLORIDE 0.9% FLUSH 10 ML FLUSH IV FLUSH SCH ×2 (08:12→19:47)
[2016-08-31] MEDS: SENNOSIDES SYRUP 8.8 MG/5 ML CUP PO SCH (08:12)
[2016-08-31] MEDS: HEPARIN SODIUM - SQ 10,000 UNITS/ML VIAL SQ SCH ×2 (08:13→19:47)
[2016-08-31] MEDS: ACETAMINOPHEN/HYDROcodone 325 MG/5 MG TAB PO PRN ×2 (10:00→19:58)
--- NOTE | 2016-08-31 10:00 | HHI.PR ---
Subjective Subjective Notes doing better, no nausea this am, ng clamped, multiple bms Objective Vitals/I&O Vital Signs Date Time Temp Pulse Resp B/P Pulse Ox O2 Delivery O2 Flow Rate FiO2 08/31/16 08:00 98.0 67 16 139/69 99 08/29/16 20:00 Room Air 08/29/16 10:15 21 Cardiovascular: Regular Lungs: Clear Abdomen: Other (soft nt/nd) A/P Assessment and Plan 56 year old female with abdominal pain, severe constipation, dilated loops of small bowel -dc NGT -clear diet possible advance to fulls today -Zofran PRN for nausea -Will follow abdominal exams -Will continue non op treatment Benjie Lim MD Aug 31, 2016 10:00
--- NOTE | 2016-08-31 10:17 | HHI.PR ---
Subjective Remarks Follow-up for nausea and severe constipation Patient stated she is swallowing her clear liquids. Denies any nausea vomiting. Positive bowel movements. Denies any abdominal pain but then asked for pain medication. Objective Vitals Vital Signs Date Time Temp Pulse Resp B/P Pulse Ox O2 Delivery O2 Flow Rate FiO2 08/31/16 08:00 98.0 67 16 139/69 99 08/31/16 00:00 98.9 72 18 135/71 96 08/30/16 20:00 98.9 68 17 152/69 94 08/30/16 16:00 98.9 66 17 152/70 99 08/30/16 12:00 98.5 68 15 132/71 99 I/O 08/30/16 08/30/16 08/30/16 08/31/16 08/31/16 08/31/16 07:00 15:00 23:00 07:00 15:00 23:00 Intake Total 420 ml 170 ml 240 ml 370 ml Balance 420 ml 170 ml 240 ml 370 ml Intake Oral 120 ml 120 ml 240 ml 120 ml IV Total 300 ml 50 ml 250 ml # Voids 2 3 2 2 # Bowel Movements 2 2 2 2 Result Diagram: 08/29/16 0453 08/29/16 0453 Objective Remarks GENERAL: in NAD CARDIOVASCULAR: Regular rate and rhythm without murmurs, gallops, or rubs. RESPIRATORY: Breath sounds equal bilaterally. No accessory muscle use. GASTROINTESTINAL: Abdomen soft, nondistended and nontender. No peritoneal signs. MUSCULOSKELETAL: No cyanosis, or edema. BACK: Nontender without obvious deformity. No CVA tenderness. Medications and IVs Current Medications Ondansetron HCl 4 mg 4 mg ONCE ONCE IVP Last administered on 08/24/16 02:31; Start 08/24/16 at 01:30; Stop 08/24/16 at 01:31; Status DC Sodium Chloride (NS 1000 ml Inj) 1,000 ml @ 1,000 mls/hr Q1H IV Last administered on 08/24/16 01:53; Start 08/24/16 at 01:19; Stop 08/24/16 at 02:18; Status DC Sodium Chloride (NS Flush) 2 ml UNSCH PRN IV FLUSH FLUSH AFTER USING IV ACCESS ; Start 08/24/16 at 01:30; Stop 08/24/16 at 08:41; Status DC Hydromorphone HCl (Dilaudid Pf Inj) 0.05 mg ONCE ONCE IVS ; Start 08/24/16 at 01 :30; Stop 08/24/16 at 01:31; Status Cancel Hydromorphone HCl (Dilaudid Pf Inj) 0.5 mg ONCE ONCE IVS Last administered on 08/24/16 02:32; Start 08/24/16 at 02:30; Stop 08/24/16 at 02:31; Status DC Diatrizoate Meglum/ Diatrizoate Sod ( Gastroemma Liq) 18 ml STK-MED ONCE .ROUTE Last administered on 08/24/16 04:23; Start 08/24/16 at 04:19; Stop at 04:20; Status DC Hydromorphone HCl 1 mg 1 mg ONCE ONCE IVS Last administered on 08/24/16 04:33 ; Start 08/24/16 at 04:30; Stop 08/24/16 at 04:31; Status DC Sodium Chloride 1,000 ml @ 999 mls/hr BOLUS ONCE IV Last administered on 04:37; Start 08/24/16 at 04:45; Stop 08/24/16 at 05:45; Status DC Piperacillin Sod/ Tazobactam Sod 50 ml @ 100 mls/hr ONCE ONCE IV Last administered on 08/24/16 07:30; Start 08/24/16 at 07:30; Stop 08/24/16 at 07:59; Status DC Sodium Chloride (NS 1000 ml Inj) 1,000 ml @ 84 mls/hr [id number] IV Last administered on 08/25/16 08:50; Start 08/24/16 at 09:00; Stop 08/25/16 at 12:00; Status DC Sodium Chloride (NS Flush) 2 ml UNSCH PRN IV FLUSH FLUSH AFTER USING IV ACCESS Last administered on 08/28/16 08:11; Start 08/24/16 at 08:30 Sodium Chloride (NS Flush) 2 ml BID IV FLUSH Last administered on 08/31/16 08: 12; Start 08/24/16 at 09:00 Acetaminophen (Tylenol) 650 mg Q6H PRN PO PAIN 1-2 AND/OR FEVER >101F; Start at 08:30; Status Hold Pantoprazole Sodium (Protonix Inj) 40 mg DAILY IV Last administered on 08:11; Start 08/24/16 at 09:00 Ondansetron HCl (Zofran Inj) 4 mg Q6H PRN IV NAUSEA OR VOMITING Last administered on 08/30/16 18:35; Start 08/24/16 at 08:30 Albuterol/ Ipratropium (Duoneb Neb) 1 ampule Q4HR NEB INH ; Start 08/24/16 at 12 :00; Stop 08/28/16 at 12:00; Status DC Albuterol Sulfate (Albuterol Neb) 2.5 mg Q2HR NEB PRN INH SOB/WHEEZING; Start 08/24/16 at 08:30 Heparin Sodium (Porcine) (Heparin Inj) 5,000 units Q12H SQ Last administered on 08/31/16 08:13; Start 08/24/16 at 09:00 Miscellaneous Information 1 [id number] XX ; Start 08/24/16 at 08:30 Chlorhexidine Gluconate (Chlorhexidine 2% Cloth) Taper DAILY@04 TOP Last administered on 08/28/16 04:00; Start 08/25/16 at 04:00; Stop 08/21/17 at 03:59 Chlorhexidine Gluconate (Chlorhexidine 2% Cloth) 3 pack UNSCH PRN TOP HYGIENIC CARE; Start 08/24/16 at 08:30 Hydromorphone HCl (Dilaudid Pf Inj) 0.5 mg Q3H PRN IV PUSH PAIN SCALE 1 TO 5 Last administered on 08/25/16 05:39; Start 08/24/16 at 08:45; Stop 08/26/16 at 16: 26; Status DC Hydromorphone HCl 1 mg 1 mg Q3H PRN IV PUSH PAIN SCALE 6 TO 10 Last administered on 08/26/16 16:13; Start 08/24/16 at 08:45; Stop 08/26/16 at 16:27; Status DC Piperacillin Sod/ Tazobactam Sod (Zosyn 2.25 Gm Premix) 50 ml @ 100 mls/hr Q6H IV ; Start 08/24/16 at 08:45; Stop 08/24/16 at 09:33; Status DC Acetaminophen (Ofirmev Inj) 1,000 mg Q6H PRN IV fever; Start 08/24/16 at 08:45; Stop 08/25/16 at 08:44; Status DC Methylnaltrexone [place] (Relistor Inj) 12 mg ONCE ONCE SQ Last administered on 08/24/16 12:04; Start 08/24/16 at 08:45; Stop 08/24/16 at 09:24; Status DC Glycerin (Glycerin Adult Supp) 2 gm BID PRN RECTAL CONSTIPATION Last administered on 08/25/16 09:09; Start 08/24/16 at 08:45 Lactulose (Lactulose Liq) 30 ml QID PO Last administered on 08/28/16 08:12; Start 08/24/16 at 09:00; Stop 08/29/16 at 09:28; Status DC Polyethylene Glycol (Miralax) 17 gm DAILY PO Last administered on 08/30/16 08: 35; Start 08/24/16 at 09:00 Docusate Sodium (Colace Liq) 100 mg Q12HR PO Last administered on 08/30/16 08: 35; Start 08/24/16 at 09:00 Sennosides (Senna Liq) 8.8 mg DAILY PO Last administered on 08/30/16 08:35; Start 08/24/16 at 09:00 Lorazepam (Ativan Inj) 1 mg Q6H PRN IV PUSH anxiety; Start 08/24/16 at 08:45 Hydralazine HCl (Apresoline Inj) 10 mg Q1HR PRN IV PUSH SBP>160, DBP>90; Start 08/24/16 at 08:45 Nitroglycerin (Nitroglycerin 2% Oint) 1 inch Q6HR PRN TOPICAL SBP>160, DBP>90; Start 08/24/16 at 08:45 Labetalol HCl 10 mg 10 mg Q1HR PRN IV PUSH SBP>160, DBP>90, HR>65; Start at 08:45 Sodium Chloride 1,000 ml @ 999 mls/hr BOLUS ONCE IV Last administered on 08:45; Start 08/24/16 at 08:45; Stop 08/24/16 at 09:45; Status DC Sodium Chloride 1,000 ml @ 999 mls/hr BOLUS ONCE IV Last administered on 09:16; Start 08/24/16 at 08:45; Stop 08/24/16 at 09:45; Status DC Piperacillin Sod/ Tazobactam Sod (Zosyn 2.25 Gm Premix) 50 ml @ 100 mls/hr Q6H IV Last administered on 08/31/16 08:11; Start 08/24/16 at 14:00 Magnesium Citrate (Citroma Liq) 300 ml Q6H PO Last administered on 08/25/16 02: 10; Start 08/24/16 at 20:00; Stop 08/25/16 at 02:01; Status DC Bisacodyl 10 mg 10 mg Q3H PO Last administered on 08/25/16 03:44; Start at 00:00; Stop 08/25/16 at 03:01; Status DC Dextrose/Sodium Chloride (D5W-NS 1000 ml Inj) 1,000 ml @ 75 mls/hr [id number] IV Last administered on 08/26/16 05:50; Start 08/25/16 at 12:00; Stop 08/26/16 at 10: 46; Status DC Dextrose (D50w (Vial) Inj) 50 ml UNSCH PRN IV HYPOGLYCEMIA-SEE COMMENTS; Start 08/25/16 at 12:00; Stop 08/28/16 at 15:04; Status DC Glucagon (Glucagon Inj) 1 mg UNSCH PRN OTHER HYPOGLYCEMIA-SEE COMMENTS; Start 08/25/16 at 12:00; Stop 08/28/16 at 15:04; Status DC Insulin Human Regular (NovoLIN R SUPPLEMENTAL SCALE) 1 Q4H SQ ; Start 08/25/16 at 12:00; Stop 08/28/16 at 15:04; Status DC Budesonide/ Formoterol Fumarate (Symbicort 80-4.5 Mcg Inh) 1 puff Q12HR INH Last administered on 08/26/16 20:43; Start 08/25/16 at 21:00 Diatrizoate Meglum/ Diatrizoate Sod 740 ml 740 ml STK-MED ONCE RECTAL Last administered on 08/25/16 14:20; Start 08/25/16 at 14:20; Stop 08/25/16 at 14:47; Status DC Potassium Chloride/Dextrose/ Sod Cl 1,000 ml @ 70 mls/hr [id number] IV Last administered on 08/29/16 01:15; Start 08/26/16 at 10:45 Potassium Chloride (KCl 10 Meq Premix Inj) 100 ml @ 100 mls/hr Q1H IV Last administered on 08/26/16 14:48; Start 08/26/16 at 11:00; Stop 08/26/16 at 13:59; Status DC Hydromorphone HCl (Dilaudid Pf Inj) 0.25 mg Q4HR PRN IV PUSH PAIN SCALE 1 TO 5 ; Start 08/26/16 at 20:00; Stop 08/27/16 at 15:34; Status DC Hydromorphone HCl (Dilaudid Pf Inj) 0.5 mg Q3H PRN IV PUSH PAIN SCALE 6 TO 10; Start 08/26/16 at 17:45; Stop 08/26/16 at 17:45; Status DC Hydromorphone HCl (Dilaudid Pf Inj) 0.5 mg Q4HR PRN IV PUSH PAIN SCALE 6 TO 10 Last administered on 08/27/16 04:29; Start 08/26/16 at 20:00; Stop 08/27/16 at 15: 35; Status DC Simethicone (Phazyme Chew) 125 mg Q8HR PO Last administered on 08/31/16 05:16; Start 08/27/16 at 14:00 Metronidazole (Flagyl) 250 mg Q8HR PO Last administered on 08/28/16 06:36; Start 08/27/16 at 14:00; Status Hold Hydromorphone HCl (Dilaudid Pf Inj) 0.125 mg Q4H PRN IV PUSH PAIN SCALE 4 TO 10 Last administered on 08/28/16 14:43; Start 08/27/16 at 15:45; Stop 08/28/16 at 15:04; Status DC Potassium Chloride (KCl) 30 meq ONCE ONCE PO Last administered on 08/27/16 16: 08; Start 08/27/16 at 16:00; Stop 08/27/16 at 16:01; Status DC Metronidazole 250 mg 250 mg ONCE ONCE PO Last administered on 08/27/16 22:22; Start 08/27/16 at 22:30; Stop 08/27/16 at 22:31; Status DC Metronidazole (Flagyl 500 Mg Inj) 100 ml @ 100 mls/hr Q8H IV Last administered on 08/31/16 05:20; Start 08/28/16 at 14:00 Acetaminophen/ Hydrocodone Bitart ([place] 5-325 Mg) 1 tab Q6H PRN PO PAIN 3-8 Last administered on 08/29/16 14:02; Start 08/28/16 at 15:15 Acetaminophen/ Hydrocodone Bitart ([place] 5-325 Mg) 2 tab Q6H PRN PO pain 9-10 Last administered on 08/31/16 10:00; Start 08/28/16 at 15:15 Hydromorphone HCl (Dilaudid Pf Inj) 0.2 mg ONCE ONCE IV PUSH Last administered on 08/28/16 21:44; Start 08/28/16 at 22:00; Stop 08/28/16 at 22:01; Status DC Date of Removal: Aug 27, 2016 A/P Problem List: (1) Atherosclerotic plaque ICD Code: I70.90 Status: Acute (2) Obstipation ICD Code: K59.00 Status: Acute (3) Elevated AST (SGOT) ICD Code: R74.0 Status: Acute (4) COPD (chronic obstructive pulmonary disease) ICD Code: J44.9 Status: Acute (5) Lactic acidosis ICD Code: E87.2 Status: Acute (6) Elevated amylase ICD Code: R74.8 Status: Acute (7) Tetrahydrocannabinol (THC) use disorder, mild, abuse ICD Code: F12.10 Status: Acute (8) Leukocytosis ICD Code: D72.829 Status: Acute (9) Acute kidney injury ICD Code: N17.9 Status: Acute (10) Abdominal pain ICD Code: R10.9 Status: Acute (11) Body mass index less than 16.5 ICD Code: Z68.1 Status: Acute (12) Tobacco abuse ICD Code: Z72.0 Status: Chronic (13) Anxiety ICD Code: F41.9 Status: Chronic (14) Neutrophilic leukocytosis ICD Code: D72.9 Status: Acute (15) Dyslipidemia ICD Code: E78.5 Status: Acute (16) Cachectic ICD Code: R64 Status: Acute (17) SIRS (systemic inflammatory response syndrome) ICD Code: R65.10 Status: Acute Assessment and Plan 56 years old female presenting with Sepsis/SIRs secondary to acute abdominal process- severe constipation Persistent leukocytosis- trending down -lactic acid level down. -Continue IVF Severe constipation- ? History of pain meds use- per staff- patient denies this at bedside -GI ff/GS and recommend conservative management. -Pain meds makes constipation worse will try to avoid pain medication if possible. -Patient tolerating clear liquid diet and is asymptomatic. NG tube removed per surgery. Diet was advanced to full liquid. -Continue with serial abdominal exam and operative treatment. Acute Kidney Injury- resolved Hypokalemia- improved -continue IVF - replace with IV Kcl History of PUD -on PPI History of Anxiety disorder - Continue with current regimen. Problem Qualifiers (1) COPD (chronic obstructive pulmonary disease): Qualified Code: J44.9 - Chronic obstructive pulmonary disease, unspecified COPD type (2) Leukocytosis: Qualified Code: D72.825 - Bandemia (3) Abdominal pain: Qualified Code: R10.30 - Lower abdominal pain Zoie Mercado MD Aug 31, 2016 10:17
--- NOTE | 2016-08-31 11:29 | HHI.GIFU ---
Subjective Remarks Feeling much better, more cheerful, wants to eat, NGT dcd Objective Vitals I&O Vital Signs Date Time Temp Pulse Resp B/P Pulse Ox O2 Delivery O2 Flow Rate FiO2 08/31/16 08:00 98.0 67 16 139/69 99 08/31/16 00:00 98.9 72 18 135/71 96 08/30/16 20:00 98.9 68 17 152/69 94 08/30/16 16:00 98.9 66 17 152/70 99 08/30/16 12:00 98.5 68 15 132/71 99 I/O 08/30/16 08/30/16 08/30/16 08/31/16 08/31/16 08/31/16 07:00 15:00 23:00 07:00 15:00 23:00 Intake Total 420 ml 170 ml 240 ml 370 ml Balance 420 ml 170 ml 240 ml 370 ml Intake Oral 120 ml 120 ml 240 ml 120 ml IV Total 300 ml 50 ml 250 ml # Voids 2 3 2 2 # Bowel Movements 2 2 2 2 Laboratory Laboratory Tests Test 08/29/16 04:53 White Blood Count 8.3 TH/MM3 Red Blood Count 2.84 MIL/MM3 Hemoglobin 8.9 GM/DL Hematocrit 26.6 % Mean Corpuscular Volume 93.6 FL Mean Corpuscular Hemoglobin 31.2 PG Mean Corpuscular Hemoglobin 33.3 % Concent Red Cell Distribution Width 14.1 % Platelet Count 202 TH/MM3 Mean Platelet Volume 7.7 FL Neutrophils (%) (Auto) 69.2 % Lymphocytes (%) (Auto) 14.9 % Monocytes (%) (Auto) 13.2 % Eosinophils (%) (Auto) 2.4 % Basophils (%) (Auto) 0.3 % Neutrophils # (Auto) 5.8 TH/MM3 Lymphocytes # (Auto) 1.2 TH/MM3 Monocytes # (Auto) 1.1 TH/MM3 Eosinophils # (Auto) 0.2 TH/MM3 Basophils # (Auto) 0.0 TH/MM3 CBC Comment DIFF FINAL Differential Comment Sodium Level 139 MEQ/L Potassium Level 3.9 MEQ/L Chloride Level 107 MEQ/L Carbon Dioxide Level 25.2 MEQ/L Anion Gap 7 MEQ/L Blood Urea Nitrogen 4 MG/DL Creatinine 0.69 MG/DL Estimat Glomerular Filtration 87 ML/MIN Rate Random Glucose 101 MG/DL Calcium Level 7.6 MG/DL Imaging Last Impressions Abdomen X-Ray 08/30/16 0000 Signed Impressions: Service Date/Time: Tuesday, August 30, 2016 11:07 - CONCLUSION: Air distended bowel without any evidence of obstruction. NG tube tip in the distal esophagus. Neto Zambrano MD Chest X-Ray 08/28/16 0600 Signed Impressions: Service Date/Time: August 03:03 - CONCLUSION: Hyperinflation which can be seen with COPD. No evidence for an infiltrate. . Fidencio Key MD Enema w/Water Soluble 08/25/16 0000 Signed Impressions: Service Date/Time: Thursday, August 25, 2016 14:13 - CONCLUSION: Moderate stool throughout the colon. Otherwise, unremarkable Gastrografin enema. Sourav Ward MD Abdomen/Pelvis CT 08/24/16 0342 Signed Impressions: Service Date/Time: Wednesday, August 24, 2016 06:05 - CONCLUSION: There is marked distention and fluid filled stomach and small bowel. There is stool throughout the colon distally. No obvious wall thickening or pneumatosis identified. No visible evidence of colitis or ischemic bowel. Neto Zambrano MD Laboratory Tests Test 08/29/16 04:53 White Blood Count 8.3 TH/MM3 Red Blood Count 2.84 MIL/MM3 Hemoglobin 8.9 GM/DL Hematocrit 26.6 % Mean Corpuscular Volume 93.6 FL Mean Corpuscular Hemoglobin 31.2 PG Mean Corpuscular Hemoglobin 33.3 % Concent Red Cell Distribution Width 14.1 % Platelet Count 202 TH/MM3 Mean Platelet Volume 7.7 FL Neutrophils (%) (Auto) 69.2 % Lymphocytes (%) (Auto) 14.9 % Monocytes (%) (Auto) 13.2 % Eosinophils (%) (Auto) 2.4 % Basophils (%) (Auto) 0.3 % Neutrophils # (Auto) 5.8 TH/MM3 Lymphocytes # (Auto) 1.2 TH/MM3 Monocytes # (Auto) 1.1 TH/MM3 Eosinophils # (Auto) 0.2 TH/MM3 Basophils # (Auto) 0.0 TH/MM3 CBC Comment DIFF FINAL Differential Comment Sodium Level 139 MEQ/L Potassium Level 3.9 MEQ/L Chloride Level 107 MEQ/L Carbon Dioxide Level 25.2 MEQ/L Anion Gap 7 MEQ/L Blood Urea Nitrogen 4 MG/DL Creatinine 0.69 MG/DL Estimat Glomerular Filtration 87 ML/MIN Rate Random Glucose 101 MG/DL Calcium Level 7.6 MG/DL Physical Exam CHEST: Chest clear CARDIAC: Regular rate and rhythm with no murmur gallop or rubs. ABDOMEN: Soft,not distended and no tympany , no rebound ..; BS pos EXTREMITIES: No clubbing, cyanosis, or edema. SKIN: Normal; no rash; no jaundice. Assessment and Plan Assessment: (1) Abdominal pain (2) Constipation (3) Adynamic ileus Plan Pt has had improvemnet over last 24 hrs.... encouraged pt to get OOB, ok to advance diet ..Hopefully Dc tomorrow Problem Qualifiers (1) Abdominal pain: Qualified Code: R10.30 - Lower abdominal pain (2) Constipation: Qualified Code: K59.04 - Chronic idiopathic constipation Kristofer Moreno MD Aug 31, 2016 11:29
[2016-08-31 12:00] VITALS: BP 114/57; PULSE 69; RESP 16; TEMP 98.8; O2SAT 98
[2016-08-31] MEDS: D5-NS + KCL 20 MEQ INJ 1,000 ML IV SCH (14:00)
[2016-08-31] MEDS: ONDANSETRON HCL 4 MG/2 ML VIAL IV PRN (14:47)
[2016-08-31 16:00] VITALS: BP 129/60; PULSE 75; RESP 16; TEMP 99.2; O2SAT 98
[2016-08-31 20:00] VITALS: BP 125/58; PULSE 69; RESP 17; TEMP 98.1; O2SAT 97
[2016-09-01 00:09] VITALS: BP 138/62; PULSE 67; RESP 17; TEMP 98.3; O2SAT 96
[2016-09-01] MEDS: PIPERACIL-TAZO 2.25 GM PREMIX 50 ML IV SCH ×3 (02:53→14:00)
[2016-09-01] MEDS: D5-NS + KCL 20 MEQ INJ 1,000 ML IV SCH (02:55)
[2016-09-01] MEDS: CHLORHEXIDINE GLUCONATE 2 % 1 PACK (2 CLOTHS) TOP SCH (02:55)
[2016-09-01] MEDS: metroNIDAZOLE 500 MG INJ 100 ML IV SCH ×2 (05:12→14:00)
[2016-09-01] MEDS: SIMETHICONE 125 MG CHEWABLE TAB PO SCH ×2 (05:13→14:00)
[2016-09-01] MEDS: ACETAMINOPHEN/HYDROcodone 325 MG/5 MG TAB PO PRN (05:13)
[2016-09-01 08:00] VITALS: BP_SYST 111; BP_SYST 130; BP_DIAS 55; BP_DIAS 60; PULSE 67; PULSE 75; RESP 17; RESP 18; TEMP 95.4; TEMP 98.8; O2SAT 97; O2SAT 99
[2016-09-01] MEDS: SENNOSIDES SYRUP 8.8 MG/5 ML CUP PO SCH (08:34)
[2016-09-01] MEDS: POLYETHYLENE GLYCOL 17 GM PKG PO SCH (08:34)
[2016-09-01] MEDS: BUDESONIDE-FORMOTEROL 80/4.5 MCG INHALER INH SCH (08:35)
[2016-09-01] MEDS: HEPARIN SODIUM - SQ 10,000 UNITS/ML VIAL SQ SCH (08:36)
[2016-09-01] MEDS: PANTOPRAZOLE SODIUM 40 MG VIAL IV SCH (08:36)
[2016-09-01] MEDS: SODIUM CHLORIDE 0.9% FLUSH 10 ML FLUSH IV FLUSH SCH (08:39)
[2016-09-01] MEDS ORDERED: HYDR-3516 PO (09:11)
--- NOTE | 2016-09-01 10:28 | HHI.PR ---
Subjective Subjective Notes Resting in bed Feels better Tolerated breakfast Objective Vitals/I&O Vital Signs Date Time Temp Pulse Resp B/P Pulse Ox O2 Delivery O2 Flow Rate FiO2 09/01/16 08:00 95.4 67 18 111/55 97 08/31/16 19:10 Room Air 08/29/16 10:15 21 Cardiovascular: Regular Lungs: Clear Abdomen: Non-distended, Non-tender Extremities: No edema A/P Assessment and Plan 56 year old female with abdominal pain, severe constipation, dilated loops of small bowel -Tolerating regular diet -+BM -Zofran PRN for nausea -GS clear for DC; follow up PRN; recommend GI follow up Isabel Israel Sep 01, 2016 10:28
[2016-09-01] MEDS ORDERED: OMEP40CA2 PO (11:07)
--- NOTE | 2016-09-01 11:08 | HHI.DCPOC ---
Discharge Care Plan Diagnosis: (1) Adynamic ileus (2) Constipation (3) SIRS (systemic inflammatory response syndrome) Goals to Promote Your Health * To prevent worsening of your condition and complications * To maintain your health at the optimal level Directions to Meet Your Goals Take your medications as prescribed Follow your dietary instruction Follow activity as directed Keep your appointments as scheduled Take your immunizations and boosters as scheduled If your symptoms worsen call your PCP, if no PCP go to Urgent Care Center or Emergency Room Smoking is Dangerous to Your Health. Avoid second hand smoke Call the 24-hour hour crisis hotline for domestic abuse at Zoie Mercado MD Sep 01, 2016 11:08
--- NOTE | 2016-09-01 11:09 | HHI.DS ---
Discharge Summary Admission Date Aug 24, 2016 at 07:06 Discharge Date: Sep 01, 2016 Admitting Diagnosis abodominal pain, leukocytosis, obstipation, (1) Obstipation ICD Code: K59.00 Diagnosis: Principal (2) Elevated AST (SGOT) ICD Code: R74.0 Diagnosis: Principal (3) COPD (chronic obstructive pulmonary disease) ICD Code: J44.9 Diagnosis: Principal (4) Tetrahydrocannabinol (THC) use disorder, mild, abuse ICD Code: F12.10 Diagnosis: Principal (5) Leukocytosis ICD Code: D72.829 Diagnosis: Principal (6) Acute kidney injury ICD Code: N17.9 Diagnosis: Principal (7) Body mass index less than 16.5 ICD Code: Z68.1 Diagnosis: Principal (8) Tobacco abuse ICD Code: Z72.0 Diagnosis: Principal (9) Anxiety ICD Code: F41.9 Diagnosis: Principal (10) Dyslipidemia ICD Code: E78.5 Diagnosis: Principal (11) Cachectic ICD Code: R64 Diagnosis: Principal (12) SIRS (systemic inflammatory response syndrome) ICD Code: R65.10 Diagnosis: Principal Procedures see hospital course Brief History - From Admission 87-year-old female. Date of admission 08/24/2016. Past medical history includes migraine headache, anxiety disorder follows the [facility] and COPD. She smokes one half pack per day and uses THC. Patient states she has not had a "bowel movement" since 1 month ago. Since June, patient has issues with constipation after having a colonoscopy. Patient had normal bowel movements/regimen each morning prior to these events. CT abdomen/ pelvis revealed retained stool in the small bowel and also a possible mural thrombus in the distal aorta. He was evaluated by Dr. Dowling this is thought to be a mobile plaque. No further intervention at this time. Colonoscopy was performed which revealed no acute findings according to patient. For the past 2 days, patient is expressing diffuse abdominal pain/sharp separately involving her bilateral lower quadrant including nausea and vomiting. She is unable to keep down liquids. Pain is a score is 6 out of 10. Sharp. No relief. Not positional. CT abdomen/post revealed stomach dilated and filled with contrast. Small bowel dilated./Distended. There is stool throughout the transverse and descending colon. No signs of pneumatosis or mesenteric ischemia. White cell count was 29 ,000 with neutrophilic shift. Patient had creatinine of 2.90. Baseline 0.6. Lactic acid 2.5. Elevated amylase of 1126. Received 1 L normal saline in ED and Dilaudid 2 dosages for pain management. NG tube was placed in right nares with dark gastric contents. Abdomen still remains distended/patient with abdominal pain and feels dehydrated. Patient was evaluated by Dr. Lim/general surgery who recommended serial abdominal examinationsobservation. CBC/BMP: 08/29/16 0453 08/29/16 0453 Imaging Last Impressions Abdomen X-Ray 08/30/16 0000 Signed Impressions: Service Date/Time: Tuesday, August 30, 2016 11:07 - CONCLUSION: Air distended bowel without any evidence of obstruction. NG tube tip in the distal esophagus. Neto Zambrano MD Chest X-Ray 08/28/16 0600 Signed Impressions: Service Date/Time: , August 28, 2016 03:03 - CONCLUSION: Hyperinflation which can be seen with COPD. No evidence for an infiltrate. . Fidencio Key MD Enema w/Water Soluble 08/25/16 0000 Signed Impressions: Service Date/Time: Thursday, August 25, 2016 14:13 - CONCLUSION: Moderate stool throughout the colon. Otherwise, unremarkable Gastrografin enema. Sourav Ward MD Abdomen/Pelvis CT 08/24/16 0342 Signed Impressions: Service Date/Time: Wednesday, August 24, 2016 06:05 - CONCLUSION: There is marked distention and fluid filled stomach and small bowel. There is stool throughout the colon distally. No obvious wall thickening or pneumatosis identified. No visible evidence of colitis or ischemic bowel. Neto Zambrano MD PE at Discharge GENERAL: in NAD CARDIOVASCULAR: Regular rate and rhythm without murmurs, gallops, or rubs. RESPIRATORY: Breath sounds equal bilaterally. No accessory muscle use. GASTROINTESTINAL: Abdomen soft, nondistended and nontender. No peritoneal signs. MUSCULOSKELETAL: No cyanosis, or edema. BACK: Nontender without obvious deformity. No CVA tenderness. Pt update on day of discharge patient stated she is eating her food without any difficulty. Denied any N/V or abdominal pain. She remains afebrile. good BM no complaints. Hospital Course 56 years old female presenting with SIRS secondary to acute abdominal process- severe constipation -patient initially treated empirically zosyn and falgyl. -cultures obtained and all negative. no infectious source. Antibiotics was d/ bronson. Severe constipation -GI and GS consulted and recommended conservative management with KUB and serial exams. -NG placed and did well. -NG was removed and had BMs in which she tolerated a regular diet and no pain upon discharge. Acute Kidney Injury- resolved -due to dehydration. -resolved with IVFs. History of PUD -on PPI History of Anxiety disorder - Continue with current regimen. Pt Condition on Discharge: Stable Discharge Disposition: Discharge Home Discharge Time: <= 30 minutes Discharge Instructions DIET: Follow Instructions for: As Tolerated, No Restrictions Activities you can perform: Regular-No Restrictions Follow up Referrals: PCP Follow-up - 1 Week New Medications: Omeprazole (Omeprazole) 40 Mg Cap 40 MG PO DAILY GERD #30 Ref 0 CAP Hydrocodone-Acetaminophen (Hydrocodone-Acetaminophen) 5-325 mg Tab 1 TAB PO Q6H PRN severe pain #10 Ref 0 TAB Zoie Mercado MD Sep 01, 2016 11:09
[2016-09-01 12:00] VITALS: BP 151/72; PULSE 62; RESP 18; TEMP 98.4; O2SAT 100
== END 2016-09-01 14:45 | disposition home or self-care (01) | DRG 392 ==
LOC: NEPE 01:10 → NEDA 07:06 → NEDH 11:12 → HIMW 12:45 → N07B 08-28 20:02
PROVIDERS: ADMIT Family Medicine; ATTEND Family Medicine
DX: K59.04 Chronic idiopathic constipation (principal); N17.9 Acute kidney failure, unspecified; R64 Cachexia; E87.2 Acidosis; K56.0 Paralytic ileus; J44.1 Chronic obstructive pulmonary disease with (acute) exacerbation; E86.0 Dehydration; E78.5 Hyperlipidemia, unspecified; E87.6 Hypokalemia; I10 Essential (primary) hypertension; M06.9 Rheumatoid arthritis, unspecified; Z76.5 Malingerer [conscious simulation]; F12.90 Cannabis use, unspecified, uncomplicated; F17.210 Nicotine dependence, cigarettes, uncomplicated; F41.9 Anxiety disorder, unspecified; Z79.1 Long term (current) use of non-steroidal anti-inflammatories (NSAID); Z87.01 Personal history of pneumonia (recurrent)
CPT/HCPCS: 71010; 74000; 74020; 74176; 74270; 76937; 80048; 80053; 81001; 82150; 82533; 82550; 82552; 82570; 82948; 83605; 83690; 83735; 84100; 84155; 84300; 84443; 84484; 85007; 85025; 85027; 85610; 85730; 87040; 87086; 87205; 87641; 93005; 96361; 96374; 96375; 96376; C9113; J1170; J1644; J2212; J2405; J2543; J3480; J7030; J7042; Q9963

== ENCOUNTER 2016-09-17 18:05 | Inpatient (IN) | payer MEDICARE, OTHER ==
[~2016-09-17] VITALS: Ht 160 cm; Wt 38.0 kg
[~2016-09-17 18:05] MED LIST changes: -FERR324T4 PO; +HYDR-3516 PO; -HYDR25 PO; -LACT PO; -MELA10TA3 PO; -NAPR220T9 PO; +OMEP40CA2 PO; +ONDA1TAB17 PO; -SERT100 PO; +TRAZ50TA12 PO; -TRAZ50TA4 PO; -TYLE500T PO; +[UNRECOGNIZED DRUG - CODE]
[2016-09-17 18:09] VITALS: BP 153/79; PULSE 124; RESP 24; TEMP 101; O2SAT 99
[2016-09-17 18:55] VITALS: BP 131/66; PULSE 108; RESP 22; O2SAT 99
[2016-09-17] MEDS ORDERED: SODIUM CHLOR 0.9% 1000 ML INJ 1,000 ML IV SCH (18:57)
[2016-09-17] MEDS ORDERED: FAMOTIDINE 20 MG/2 ML VIAL IV PUSH ONE (19:00)
[2016-09-17] MEDS ORDERED: ONDANSETRON HCL 4 MG/2 ML VIAL IVP ONE (19:00)
[2016-09-17] MEDS ORDERED: HYDROmorphone HCL PF 1 MG/ML VIAL IVS ONE (19:00)
[2016-09-17] MEDS ORDERED: ACETAMINOPHEN 325 MG TAB PO ONE (19:00)
[2016-09-17] MEDS ORDERED: SODIUM CHLORIDE 0.9% FLUSH 10 ML FLUSH IV FLUSH PRN ×2 (19:00→22:00)
--- NOTE | 2016-09-17 19:04 | PD ---
HPI Chief Complaint: GI Complaint Time Seen by Provider: 18:52 Travel History International Travel<30 days: No Contact w/Intl Traveler<30days: No Traveled to known affect area: No History of Present Illness HPI The patient is a 56-year-old female who presents emergency department for nausea, vomiting, diarrhea, and intermittent abdominal pain. The patient was recently admitted to the hospital earlier this month for abdominal pain and constipation, states she was diagnosed with a "bowel blockage", however, states she was never told why she had a bowel blockage and notes that the bowel blockage resolved without surgery. The patient states that she developed nausea and vomiting on Thursday and at approximately 2 AM and has been followed by diarrhea. The patient describes the diarrhea as loose, watery, without any visible blood. She does note a foul smell to the diarrhea, but denies any history of C. difficile. The patient is followed by her primary physician, Dr. 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 The patient does note fevers as high as 101 without any chills or sweats. She has persistent nausea and vomiting and complains of being thirsty. The patient denies any dysuria, frequency, or urgency. PFSH Past Medical History Arthritis: Yes Asthma: Yes Autoimmune Disease: No Anxiety: Yes Depression: No Heart Rhythm Problems: No Cancer: No Cardiovascular Problems: No High Cholesterol: No Chest Pain: No Congestive Heart Failure: No COPD: Yes Cerebrovascular Accident: No Diabetes: No Diminished Hearing: No Endocrine: No GERD: No Genitourinary: No Headaches: Yes Hepatitis: No Hiatal Hernia: No Immune Disorder: No Kidney Stones: No Medical other: Yes (ANEMIA, FEVER/ CHILLS ) Musculoskeletal: Yes (NECK/ BACK PAIN) Neurologic: Yes Psychiatric: Yes Reproductive: No Respiratory: Yes (COPD) Migraines: Yes Renal Failure: No Seizures: No Sleep Apnea: No Thyroid Disease: No Ulcer: Yes (STOMACH) Tubal Ligation: Yes Past Surgical History Abdominal Surgery: No AICD: No Arteriovenous Shunt: No Cardiac Surgery: No Ear Surgery: No Endocrine Surgery: No Eye Surgery: No Gynecologic Surgery: Yes (TUBAL LIG.) Insulin Pump: No Joint Replacement: No Neurologic Surgery: Yes (LUMBAR SX) Oral Surgery: No Pacemaker: No Thoracic Surgery: No Other Surgery: Yes Social History Alcohol Use: No (PT STATES SHE QUIT BUT USED TO DRINK DAILY) Tobacco Use: Yes (1 PPD) Substance Use: Yes (MARIJUANA DAILY) Allergies-Medications (Allergen,Severity, Reaction): Coded Allergies: Biaxin (Verified Allergy, Severe, BURNING MOUTH, 09/17/16) Doxycycline (Verified Allergy, Severe, Rash, 09/17/16) Vioxx (Verified Allergy, Unknown, 09/17/16) Morphine (Verified Adverse Reaction, Severe, NAUSEA, 09/17/16) Erythromycin (Verified Adverse Reaction, Intermediate, nausea, 09/17/16) Uncoded Allergies: cheese (Allergy, Mild, Cramping, 06/22/15) Reported Meds & Prescriptions Reported Meds & Active Scripts Active Omeprazole 40 Mg Cap 40 Mg PO DAILY Reported Bevespi Aerosphere 9-4.8 Mcg/Act (Glycopyrrolate-Formoterol Fuma) 1 Aer Aer 1 Puff INH DAILY Hydroxyzine HCl 25 Mg Tab 25 Mg PO TID Trintellix (Vortioxetine) 20 Mg Tab 20 Mg PO DAILY Trazodone (Trazodone HCl) 50 Mg Tab 50 Mg PO HS Ondansetron (Ondansetron HCl) 8 Mg Tab 4 Mg PO TID Review of Systems Except as stated in HPI: all other systems reviewed are Neg General / Constitutional: Positive: Fever, No: Chills HENT: No: Lightheadedness Cardiovascular: No: Chest Pain or Discomfort Respiratory: No: Shortness of Breath Gastrointestinal: Positive: Nausea, Vomiting, Diarrhea, Abdominal Pain Genitourinary: No: Dysuria Musculoskeletal: Positive: Weakness Physical Exam Narrative GENERAL: Awake, alert, pleasant 56-year-old female who appears her stated age and is in no acute respiratory distress. SKIN: Focused skin assessment warm/dry. HEAD: Atraumatic. Normocephalic. EYES: Pupils equal and round. No scleral icterus. No injection or drainage. ENT: No nasal bleeding or discharge. Dry mucous members. NECK: Trachea midline. No JVD. CARDIOVASCULAR: Regular, tachycardic with a heart rate of 105. RESPIRATORY: No accessory muscle use. Clear to auscultation. Breath sounds equal bilaterally. GASTROINTESTINAL: Abdomen soft, minimal diffuse tenderness. MUSCULOSKELETAL: No obvious deformities. No clubbing. No cyanosis. No edema. NEUROLOGICAL: Awake and alert. No obvious cranial nerve deficits. Motor grossly within normal limits. Normal speech. PSYCHIATRIC: Appropriate mood and affect; insight and judgment normal. Data Data Last Documented VS Vital Signs Date Time Temp Pulse Resp B/P Pulse Ox O2 Delivery O2 Flow Rate FiO2 09/17/16 19:57 22 95 Room Air 09/17/16 18:55 108 131/66 09/17/16 18:09 101.0 Orders Complete Blood Count With Diff (09/17/16 18:57) Comprehensive Metabolic Panel (09/17/16 18:57) Lipase (09/17/16 18:57) Lactic Acid (09/17/16 18:57) Urinalysis - C+S If Indicated (09/17/16 18:57) Ct Abd/Pel W/O Iv Contrast (09/17/16 18:57) Iv Access Insert/Monitor (09/17/16 18:57) Ecg Monitoring (09/17/16 18:57) Oximetry (09/17/16 18:57) Ondansetron Inj (Zofran Inj) (09/17/16 19:00) Sodium Chlor 0.9% 1000 Ml Inj (Ns 1000 M (09/17/16 18:57) Sodium Chloride 0.9% Flush (Ns Flush) (09/17/16 19:00) Electrocardiogram (09/17/16 18:57) Famotidine Inj (Pepcid Inj) (09/17/16 19:00) Hydromorphone Pf Inj (Dilaudid Pf Inj) (09/17/16 19:00) Blood Culture (09/17/16 18:57) C Diff Toxin Pcr (09/17/16 18:57) Enteric Path (Stool) (09/17/16 18:57) Acetaminophen (Tylenol) (09/17/16 19:00) Ciprofloxacin 400 Mg Premix (Cipro 400 M (09/17/16 20:30) Metronidazole 500 Mg Inj (Flagyl 500 Mg (09/17/16 20:30) Sodium Chlor 0.9% 1000 Ml Inj (Ns 1000 M (09/17/16 20:45) Labs Laboratory Tests Test 09/17/16 09/17/16 19:05 19:10 Lactic Acid Level 1.3 mmol/L White Blood Count 14.4 TH/MM3 Red Blood Count 3.75 MIL/MM3 Hemoglobin 12.3 GM/DL Hematocrit 35.9 % Mean Corpuscular Volume 95.6 FL Mean Corpuscular Hemoglobin 32.8 PG Mean Corpuscular Hemoglobin 34.3 % Concent Red Cell Distribution Width 15.6 % Platelet Count 387 TH/MM3 Mean Platelet Volume 8.1 FL Neutrophils (%) (Auto) 87.7 % Lymphocytes (%) (Auto) 5.8 % Monocytes (%) (Auto) 6.1 % Eosinophils (%) (Auto) 0.0 % Basophils (%) (Auto) 0.4 % Neutrophils # (Auto) 12.6 TH/MM3 Lymphocytes # (Auto) 0.8 TH/MM3 Monocytes # (Auto) 0.9 TH/MM3 Eosinophils # (Auto) 0.0 TH/MM3 Basophils # (Auto) 0.1 TH/MM3 CBC Comment DIFF FINAL Differential Comment Sodium Level 128 MEQ/L Potassium Level 3.9 MEQ/L Chloride Level 93 MEQ/L Carbon Dioxide Level 27.4 MEQ/L Anion Gap 8 MEQ/L Blood Urea Nitrogen 16 MG/DL Creatinine 0.89 MG/DL Estimat Glomerular Filtration 65 ML/MIN Rate Random Glucose 110 MG/DL Calcium Level 8.8 MG/DL Total Bilirubin 0.5 MG/DL Aspartate Amino Transf 68 U/L (AST/SGOT) Alanine Aminotransferase 27 U/L (ALT/SGPT) Alkaline Phosphatase 92 U/L Total Protein 7.2 GM/DL Albumin 2.9 GM/DL Lipase 76 U/L [facility] Medical Decision Making Medical Screen Exam Complete: Yes Emergency Medical Condition: Yes Medical Record Reviewed: Yes Interpretation(s) EKG reveals normal sinus rhythm with a rate of 94. Nonspecific T wave changes. Last Impressions Abdomen/Pelvis CT 09/17/16 3528 Signed Impressions: Service Date/Time: Saturday, September 17, 2016 19:39 - CONCLUSION: 1. Wall thickening throughout the colon greatest within the sigmoid colon likely colitis. Fluid throughout the large bowel. 2. Minimal parenchymal density left lower lobe could be atelectasis or minimal infiltrate. Fidencio Key MD Laboratory Tests Test 09/17/16 09/17/16 19:05 19:10 Lactic Acid Level 1.3 mmol/L White Blood Count 14.4 TH/MM3 Red Blood Count 3.75 MIL/MM3 Hemoglobin 12.3 GM/DL Hematocrit 35.9 % Mean Corpuscular Volume 95.6 FL Mean Corpuscular Hemoglobin 32.8 PG Mean Corpuscular Hemoglobin 34.3 % Concent Red Cell Distribution Width 15.6 % Platelet Count 387 TH/MM3 Mean Platelet Volume 8.1 FL Neutrophils (%) (Auto) 87.7 % Lymphocytes (%) (Auto) 5.8 % Monocytes (%) (Auto) 6.1 % Eosinophils (%) (Auto) 0.0 % Basophils (%) (Auto) 0.4 % Neutrophils # (Auto) 12.6 TH/MM3 Lymphocytes # (Auto) 0.8 TH/MM3 Monocytes # (Auto) 0.9 TH/MM3 Eosinophils # (Auto) 0.0 TH/MM3 Basophils # (Auto) 0.1 TH/MM3 CBC Comment DIFF FINAL Differential Comment Sodium Level 128 MEQ/L Potassium Level 3.9 MEQ/L Chloride Level 93 MEQ/L Carbon Dioxide Level 27.4 MEQ/L Anion Gap 8 MEQ/L Blood Urea Nitrogen 16 MG/DL Creatinine 0.89 MG/DL Estimat Glomerular Filtration 65 ML/MIN Rate Random Glucose 110 MG/DL Calcium Level 8.8 MG/DL Total Bilirubin 0.5 MG/DL Aspartate Amino Transf 68 U/L (AST/SGOT) Alanine Aminotransferase 27 U/L (ALT/SGPT) Alkaline Phosphatase 92 U/L Total Protein 7.2 GM/DL Albumin 2.9 GM/DL Lipase 76 U/L Differential Diagnosis Differential diagnosis includes gastroenteritis, enteritis, colitis, infectious diarrhea, C. difficile, pancreatitis, IBS, IBD, dehydration, electrolyte abnormality. Narrative Course IV was established, labs are drawn and sent, and the patient was placed on cardiac telemetry monitoring and continuous pulse oximetry monitoring. The patient was administered Dilaudid 0.5 mg intravenously, Zofran 4 mg intravenously, Pepcid 20 mg intravenously, 1 L of normal saline. Blood culture and lactic acid were sent to lab. CT of the abdomen and pelvis was ordered to evaluate for colitis. C. difficile and stool culture were ordered. CT of the abdomen and pelvis reveals colitis, therefore, the patient was administered Cipro 400 mg intravenously and Flagyl 500 mg intravenously. The patient's white count is 14.3, lactic acid is normal, temperature was 101, heart rate was greater than 100, consistent with sepsis. The patient was administered a second liter of IV fluids. The patient will be admitted to the on-call medical service. Sepsis Criteria SIRS Criteria (2 or more): Temp > 100.9 or < 96.8, Heart rate over 90, WBC > 98769, < 4000 or > 10% bands Sepsis Criteria (SIRS+source): Infect source susp/known Criteria Outcome: Meets sepsis criteria Physician Communication Physician Communication The on-call medical service was paged for admission. I discussed the patient with Dr. López who agrees with admission. Diagnosis Primary Impression: Colitis Additional Impressions: Hyponatremia Sepsis Qualified Code: A41.9 - Sepsis, due to unspecified organism Admitting Information Admitting Physician Requests: Admit Condition: Stable Favian Ayala MD Sep 17, 2016 19:04
[2016-09-17] MEDS ORDERED: VORT1TAB3 PO (19:05)
[2016-09-17] MEDS ORDERED: HYDR-3133 PO (19:05)
[2016-09-17] MEDS ORDERED: GLYC1AER INH (19:05)
[2016-09-17 19:41] LABS: AUTOMATED NEUTROPHIL # 12.6 TH/MM3 (1.8-7.7); BASOPHIL # 0.1 TH/MM3 (0-0.2); BASOPHIL % 0.4 % (0.0-2.0); HEMATOCRIT 35.9 % (35.0-46.0); HEMO FLAGS DIFF FINAL; LYMPH % 5.8 % (9.0-44.0); LYMPHOCYTE # 0.8 TH/MM3 (1.0-4.8); MEAN CELL VOLUME 95.6 FL (80.0-100.0); MEAN CORPUSCULAR HEMOGLOBIN 32.8 PG (27.0-34.0); MEAN CORPUSCULAR HGB CONC 34.3 % (32.0-36.0); MONO % 6.1 % (0.0-8.0); NEUT % 87.7 % (16.0-70.0); PLATELET COUNT 387 TH/MM3 (150-450); RED BLOOD COUNT 3.75 MIL/MM3 (4.00-5.30); RED CELL DISTRIBUTION WIDTH 15.6 % (11.6-17.2); WHITE BLOOD COUNT 14.4 TH/MM3 (4.0-11.0)
[2016-09-17 19:57] VITALS: RESP 22; O2SAT 95
--- NOTE | 2016-09-17 20:04 | RADRPT ---
EXAM DATE/TIME: 09/17/2016 19:39 [facility] COMPARISON: CT ABDOMEN & PELVIS W/O CONTRAST, August 24, 2016, 6:05. INDICATIONS : Abdominal pain, nausea and vomiting. ORAL CONTRAST: No oral contrast ingested. RADIATION DOSE: 4.50 CTDIvol (mGy) MEDICAL HISTORY : Chronic obstructive pulmonary disease. Ulcers. SURGICAL HISTORY : Tubal ligation. ENCOUNTER: Initial ACUITY: 2 days PAIN SCALE: 10/10 LOCATION: All quadrants. TECHNIQUE: Volumetric scanning of the abdomen and pelvis was performed. Using automated exposure control and ad justment of the mA and/or kV according to patient size, radiation dose was kept as low as reasonably achievable to obtain optimal diagnostic quality images. DICOM format image data is available electro nically for review and comparison. FINDINGS: LOWER LUNGS: Minimal consolidation medial left lung base unchanged LIVER: Homogeneous density without lesion. There is no dilation of the biliary tree. No calcified gallston es. SPLEEN: Normal size without lesion. PANCREAS: Within normal limits. KIDNEYS: Normal in size and shape. There is no mass, stone, or hydronephrosis. ADRENAL GLANDS: Within normal limits. VASCULAR: There is no aortic aneurysm. BOWEL/MESENTERY: The stomach is markedly dilated and filled with fluid and contrast. The small bowel is markedly diste nded filled with fluid. There is a large amount of stool throughout the transverse and descending col ons. The no evidence of pneumatosis is noted. There is no intraperitoneal air. I don't see any obviou s wall thickening of any of the loops of bowel identified. There is calcified atherosclerotic disease but what I see the mesenteric vessels are patent ABDOMINAL WALL: Within normal limits. RETROPERITONEUM: There is no lymphadenopathy. BLADDER: No wall thickening or mass. REPRODUCTIVE: Within normal limits. INGUINAL: There is no lymphadenopathy or hernia. MUSCULOSKELETAL: Within normal limits for patient age. CONCLUSION: 1. Wall thickening throughout the colon greatest within the sigmoid colon likely colitis. Fluid throu ghout the large bowel. 2. Minimal parenchymal density left lower lobe could be atelectasis or minimal infiltrate. Fidencio Key MD on September 17, 2016 at 19:59 Board Certified Radiologist. This report was verified electronically.
[2016-09-17 20:07] LABS: ALKALINE PHOSPHATASE 92 U/L (45-117); ALT (GPT) 27 U/L (10-53); TOTAL BILIRUBIN ADULT 0.5 MG/DL (0.2-1.0)
[2016-09-17 20:17] LABS: ANION GAP 8 MEQ/L (5-15); AST (GOT) 68 U/L (15-37); BICARBONATE 27.4 MEQ/L (21.0-32.0); BLOOD UREA NITROGEN 16 MG/DL (7-18); CHLORIDE 93 MEQ/L (98-107); GLOMERULAR FILTRATION RATE 65 ML/MIN (>89); POTASSIUM 3.9 MEQ/L (3.5-5.1); SODIUM (NA) 128 MEQ/L (136-145)
[2016-09-17] MEDS ORDERED: CIPROFLOXACIN 400 MG PREMIX 200 ML IV ONE (20:30)
[2016-09-17] MEDS ORDERED: metroNIDAZOLE 500 MG INJ 100 ML IV ONE (20:30)
[2016-09-17] MEDS ORDERED: SODIUM CHLOR 0.9% 1000 ML INJ 1,000 ML IV ONE (20:45)
[2016-09-17] MEDS ORDERED: ACETAMINOPHEN 325 MG TAB PO PRN (22:00)
[2016-09-17] MEDS ORDERED: RESP: ALBUTEROL 2.5 MG/IPRATROPIUM 0.5 MG NEB (PRN) NEB (22:00)
[2016-09-17] MEDS: SODIUM CHLOR 0.9% 1000 ML INJ 1,000 ML IV SCH (22:25)
[2016-09-17 22:33] VITALS: TEMP 98.2
[2016-09-17 23:28] VITALS: PULSE 84
[2016-09-18] VITALS (11 sets, daily range): BP systolic 112–138; BP diastolic 60–84; PULSE 75–95; RESP 16–18; TEMP 97.7–100.4; O2SAT 97–100
[2016-09-18 00:43] LABS: C. DIFF EPI 027 PRESUMPTIVE NEGATIVE (NEGATIVE); C. DIFF TOXIN PCR NEGATIVE (NEGATIVE)
[2016-09-18] MEDS: metroNIDAZOLE 500 MG INJ 100 ML IV SCH ×4 (04:03→22:42)
--- NOTE | 2016-09-18 04:33 | HHI.HP ---
HPI Service [facility] Primary Care Physician Danya Lewis MD Admission Diagnosis colitis, sepsis Diagnoses: (1) Colitis (2) Sepsis Chief Complaint: Nausea and vomiting with diarrhea Travel History International Travel<30 Days: No Contact w/Intl Traveler <30 Da: No Traveled to Known Affected Are: No History of Present Illness Written by Raisa Arias, acting as scribe for Dr. López on 09/18/16 at 04:33. Patient reports constant vomiting for 2 days Fever Abdominal pain Ice water for the past two days only Diarrhea > 10 times per day for past two days Greenish yellow foul smelling diarrhea States vomiting is occurring every hour Reports that over the past year, she's been vomiting every morning Abdomen/Pelvis CT shows colitis and fluid throughout the large bowel. WBC 14.4 with neutrophilia Sodium 128 GI: Dr. Linn as outpatient Pulmonary: Dr. Penaloza . Review of Systems Except as stated in HPI: all other systems reviewed are Neg Past Family Social History Past Medical History COPD Chronic back and neck pain Anxiety Denies diabetes, CAD, liver problems, kidney problems, DVT, PE, CVA, Seizures, or Cancers . Past Surgical History Carpal tunnel release 2004 Back surgery BTL . Reported Medications Reported Meds & Active Scripts Active Omeprazole 40 Mg Cap 40 Mg PO DAILY Reported Bevespi Aerosphere 9-4.8 Mcg/Act (Glycopyrrolate-Formoterol Fuma) 1 Aer Aer 1 Puff INH DAILY Hydroxyzine HCl 25 Mg Tab 25 Mg PO TID Trintellix (Vortioxetine) 20 Mg Tab 20 Mg PO DAILY Trazodone (Trazodone HCl) 50 Mg Tab 50 Mg PO HS Ondansetron (Ondansetron HCl) 8 Mg Tab 4 Mg PO TID . Allergies: Coded Allergies: Biaxin (Verified Allergy, Severe, BURNING MOUTH, 09/17/16) Doxycycline (Verified Allergy, Severe, Rash, 09/17/16) Vioxx (Verified Allergy, Unknown, 09/17/16) Morphine (Verified Adverse Reaction, Severe, NAUSEA, 09/17/16) Erythromycin (Verified Adverse Reaction, Intermediate, nausea, 09/17/16) Uncoded Allergies: cheese (Allergy, Mild, Cramping, 06/22/15) Active Ordered Medications Current Medications Ondansetron HCl 4 mg 4 mg ONCE ONCE IVP Last administered on 09/17/16 19:23; Start 09/17/16 at 19:00; Stop 09/17/16 at 19:01; Status DC Sodium Chloride (NS 1000 ml Inj) 1,000 ml @ 1,000 mls/hr Q1H IV Last administered on 09/17/16 19:22; Start 09/17/16 at 18:57; Stop 09/17/16 at 19:56 ; Status DC Sodium Chloride (NS Flush) 2 ml UNSCH PRN IV FLUSH FLUSH AFTER USING IV ACCESS ; Start 09/17/16 at 19:00; Stop 09/17/16 at 22:13; Status DC Famotidine (Pepcid Inj) 20 mg ONCE ONCE IV PUSH Last administered on 19:22; Start 09/17/16 at 19:00; Stop 09/17/16 at 19:01; Status DC Hydromorphone HCl (Dilaudid Pf Inj) 0.5 mg ONCE ONCE IVS Last administered on 09/17/16 19:26; Start 09/17/16 at 19:00; Stop 09/17/16 at 19:01; Status DC Acetaminophen 650 mg 650 mg ONCE ONCE PO Last administered on 09/17/16 19:25 ; Start 09/17/16 at 19:00; Stop 09/17/16 at 19:01; Status DC Ciprofloxacin/ Dextrose 200 ml @ 200 mls/hr ONCE ONCE IV Last administered on 09/17/16 20:38; Start 09/17/16 at 20:30; Stop 09/17/16 at 21:29; Status DC Metronidazole 100 ml @ 100 mls/hr ONCE ONCE IV Last administered on 21:54; Start 09/17/16 at 20:30; Stop 09/17/16 at 21:29; Status DC Sodium Chloride 1,000 ml @ 999 mls/hr BOLUS ONCE IV Last administered on 09/17 21:54; Start 09/17/16 at 20:45; Stop 09/17/16 at 21:45; Status DC Sodium Chloride (NS 1000 ml Inj) 1,000 ml @ 100 mls/hr Q10H IV Last administered on 09/17/16 22:25; Start 09/17/16 at 21:50 Sodium Chloride (NS Flush) 2 ml UNSCH PRN IV FLUSH FLUSH AFTER USING IV ACCESS ; Start 09/17/16 at 22:00 Sodium Chloride (NS Flush) 2 ml BID IV FLUSH ; Start 09/18/16 at 09:00 Acetaminophen (Tylenol) 650 mg Q4H PRN PO TEMP > 100.4; Start 09/17/16 at 22:00 Ondansetron HCl (Zofran Inj) 4 mg Q6H PRN IVP NAUSEA OR VOMITING; Start at 22:00 Albuterol/ Ipratropium 1 ampule 1 ampule Q4HR NEB PRN NEB WHEEZING; Start 09/17 at 22:00 Metronidazole 100 ml @ 100 mls/hr Q6H IV Last administered on 09/18/16 04:03 ; Start 09/18/16 at 04:00 Ciprofloxacin/ Dextrose (Cipro 400 Mg Premix) 200 ml @ 200 mls/hr Q12H IV ; Start 09/18/16 at 08:30 . Family History Brother with oral cancer Mother with metastatic lung cancer . Social History Tobacco: 1 PPD Alcohol: denies Illicit Drugs: denies . Physical Exam Vital Signs Vital Signs Date Time Temp Pulse Resp B/P Pulse Ox O2 Delivery O2 Flow Rate FiO2 09/18/16 00:00 98.6 95 18 133/65 97 09/17/16 23:28 84 09/17/16 22:33 98.2 09/17/16 19:57 22 95 Room Air 09/17/16 18:55 108 22 131/66 99 Room Air 09/17/16 18:54 17 09/17/16 18:09 101.0 124 24 153/79 99 Room Air Physical Exam GENERAL: This is a cachectic female patient who looks much older than stated age , in no apparent distress. SKIN: No rashes. Cool and dry. HEAD: Atraumatic. Normocephalic. EYES: No scleral icterus. No injection or drainage. ENT: Nose without bleeding, purulent drainage. NECK: Trachea midline. No JVD or lymphadenopathy. CARDIOVASCULAR: Regular rate and rhythm without murmurs, gallops, or rubs. RESPIRATORY: Clear to auscultation. Breath sounds equal bilaterally. No wheezes , rales, or rhonchi. GASTROINTESTINAL: Abdomen soft, tender to palpation, nondistended. No guarding. MUSCULOSKELETAL: Extremities without clubbing, cyanosis, or edema. No calf tenderness. NEUROLOGICAL: Awake and alert. Motor and sensory grossly within normal limits. Normal speech. . Laboratory Laboratory Tests Test 09/17/16 09/17/16 09/17/16 19:05 19:10 23:10 Lactic Acid Level 1.3 White Blood Count 14.4 Red Blood Count 3.75 Hemoglobin 12.3 Hematocrit 35.9 Mean Corpuscular Volume 95.6 Mean Corpuscular Hemoglobin 32.8 Mean Corpuscular Hemoglobin 34.3 Concent Red Cell Distribution Width 15.6 Platelet Count 387 Mean Platelet Volume 8.1 Neutrophils (%) (Auto) 87.7 Lymphocytes (%) (Auto) 5.8 Monocytes (%) (Auto) 6.1 Eosinophils (%) (Auto) 0.0 Basophils (%) (Auto) 0.4 Neutrophils # (Auto) 12.6 Lymphocytes # (Auto) 0.8 Monocytes # (Auto) 0.9 Eosinophils # (Auto) 0.0 Basophils # (Auto) 0.1 CBC Comment DIFF FINAL Differential Comment Sodium Level 128 Potassium Level 3.9 Chloride Level 93 Carbon Dioxide Level 27.4 Anion Gap 8 Blood Urea Nitrogen 16 Creatinine 0.89 Estimat Glomerular Filtration 65 Rate Random Glucose 110 Calcium Level 8.8 Total Bilirubin 0.5 Aspartate Amino Transf 68 (AST/SGOT) Alanine Aminotransferase 27 (ALT/SGPT) Alkaline Phosphatase 92 Total Protein 7.2 Albumin 2.9 Lipase 76 Stool C. difficile Toxin (PCR) NEGATIVE Stl C. difficile Toxin PRESUMPTIVE Epiderm 027 NEGATIVE Date/Time Procedure Status Source Growth 09/17/16 23:10 Received Stool Stool Pending 09/17/16 19:10 Aerobic Blood Culture Received Blood Peripheral Pending 09/17/16 19:10 Anaerobic Blood Culture Received Blood Peripheral Pending Result Diagram: 09/17/16190909/17/161909 Imaging Last Impressions Abdomen/Pelvis CT 09/17/161856 Signed Impressions: Service Date/Time: Saturday, September 17, 2016 19:39 - CONCLUSION: 1. Wall thickening throughout the colon greatest within the sigmoid colon likely colitis. Fluid throughout the large bowel. 2. Minimal parenchymal density left lower lobe could be atelectasis or minimal infiltrate. Fidencio Key MD . Assessment and Plan Assessment and Plan 56 y/o female with n/v/d and intermittent abdominal pain Colitis - Abdomen/Pelvis CT shows colitis and fluid throughout the large bowel - IV Cipro q12h and Metronidazole 500 mg q6h - Will consult Dr. Linn - GI - appreciate assistance Sepsis - WBC 14.4 with neutrophilia - Temperature 101.0, pulse 124, respiratory rate 24 on admission - Blood cultures pending - Lactic acid 1.3 - Stool for culture and c.diff testing ordered in ED - NS fluid boluses x 2 in ED, maintenance with NS at 100 cc/hr - Monitor I and Os qshift - Clear liquid diet - Zofran4 mg IV q6h PRN n/v Hyponatremia - Na+ 128 - Replaced IV - repeat BMP in a.m. and follow results DVT prophylaxis - Lovenox 40 mg subq q24h . This note was transcribed by kelton [Raisa Arias]. I, Dr. Carlos López personally performed the history, physical exam, and medical decision making; and confirmed the accuracy of the information in the transcribed note. Authenticated by Dr. Carlos López on 09/18/16 at 04:33. Discussed Condition With ER physician, patient, and RN Physician Certification 2 Midnight Certification Type: Admission for Inpatient Services Order for Inpatient Services The services are ordered in accordance with Medicare regulations or non- Medicare payer requirements, as applicable. In the case of services not specified as inpatient-only, they are appropriately provided as inpatient services in accordance with the 2-midnight benchmark. Estimated LOS (days): 3 days is the estimated time the patient will need to remain in the hospital, assuming treatment plan goals are met and no additional complications. Post-Hospital Plan: Home Problem Qualifiers (1) Sepsis: Qualified Code: A41.9 - Sepsis, due to unspecified organism Raisa Arias Sep 18, 2016 04:33 Carlos López MD Sep 23, 2016 07:47
[2016-09-18] MEDS ORDERED: TEMAZEPAM 7.5 MG CAP PO ONE (04:45)
[2016-09-18 07:39] LABS: AUTOMATED NEUTROPHIL # 7.8 TH/MM3 (1.8-7.7); BASOPHIL % 0.3 % (0.0-2.0); HEMATOCRIT 30.9 % (35.0-46.0); HEMO FLAGS DIFF FINAL; LYMPH % 7.3 % (9.0-44.0); LYMPHOCYTE # 0.7 TH/MM3 (1.0-4.8); MEAN CELL VOLUME 96.8 FL (80.0-100.0); MEAN CORPUSCULAR HEMOGLOBIN 32.8 PG (27.0-34.0); MEAN CORPUSCULAR HGB CONC 33.9 % (32.0-36.0); MONO % 7.2 % (0.0-8.0); NEUT % 85.2 % (16.0-70.0); PLATELET COUNT 304 TH/MM3 (150-450); RED BLOOD COUNT 3.19 MIL/MM3 (4.00-5.30); RED CELL DISTRIBUTION WIDTH 15.4 % (11.6-17.2); WHITE BLOOD COUNT 9.2 TH/MM3 (4.0-11.0)
[2016-09-18 08:22] LABS: BICARBONATE 25.5 MEQ/L (21.0-32.0)
[2016-09-18] MEDS ORDERED: CIPROFLOXACIN 400 MG PREMIX 200 ML IV SCH (08:30)
[2016-09-18 08:37] LABS: POTASSIUM 2.7 MEQ/L (3.5-5.1)
[2016-09-18] MEDS: SODIUM CHLORIDE 0.9% FLUSH 10 ML FLUSH IV FLUSH SCH ×2 (08:57→22:43)
[2016-09-18] MEDS: PANTOPRAZOLE SOD 40 MG DELAYED RELEASE TAB PO SCH (08:57)
[2016-09-18] MEDS: ENOXAPARIN SODIUM 40 MG/0.4 ML SYRINGE SQ SCH (08:57)
[2016-09-18] MEDS: SODIUM CHLOR 0.9% 1000 ML INJ 1,000 ML IV SCH (08:58)
[2016-09-18] MEDS ORDERED: [UNRECOGNIZED DRUG - MIXTURE] INH SCH (09:00)
[2016-09-18] MEDS ORDERED: NON-FORMULARY DRUG (Vortioxetine (Trintellix) 20 MG) PO SCH (09:00)
--- NOTE | 2016-09-18 09:05 | HHI.PR ---
Subjective Remarks Patient in bed, says she feels veru tired, with nausea but did not vomit. Not moni to eat much . Denies fever or chills. No cough. No abd pain . Low K at 2.7 replaced with 40 mEq IV and 60 mq PO . Monitor and replace as need. Check Mag level. With Salmonella in the stool, start ciprofloxacin 500 mg po bid Objective Vitals Vital Signs Date Time Temp Pulse Resp B/P Pulse Ox O2 Delivery O2 Flow Rate FiO2 09/18/16 08:00 97.8 82 16 138/63 98 09/18/16 04:15 85 09/18/16 04:00 97.7 95 18 138/84 97 09/18/16 00:00 98.6 95 18 133/65 97 09/17/16 23:28 84 09/17/16 22:33 98.2 09/17/16 19:57 22 95 Room Air 09/17/16 18:55 108 22 131/66 99 Room Air 09/17/16 18:54 17 09/17/16 18:09 101.0 124 24 153/79 99 Room Air I/O 09/17/16 09/17/16 09/17/16 09/18/16 09/18/16 09/18/16 06:59 14:59 22:59 06:59 14:59 22:59 Intake Total 200 ml Balance 200 ml Intake Oral 200 ml # Voids 3 1 # Bowel Movements 3 Result Diagram: 09/18/1661609/18/1617 Imaging Last Impressions Abdomen/Pelvis CT 09/17/16 1857 Signed Impressions: Service Date/Time: Saturday, September 17, 2016 19:39 - CONCLUSION: 1. Wall thickening throughout the colon greatest within the sigmoid colon likely colitis. Fluid throughout the large bowel. 2. Minimal parenchymal density left lower lobe could be atelectasis or minimal infiltrate. Fidencio Key MD Objective Remarks GENERAL: This is a cachectic female patient who looks much older than stated age , in no apparent distress. CARDIOVASCULAR: Regular rate and rhythm without murmurs, gallops, or rubs. RESPIRATORY: Clear to auscultation. Breath sounds equal bilaterally. No wheezes , rales, or rhonchi. GASTROINTESTINAL: Abdomen soft, tender to palpation, nondistended. No guarding. MUSCULOSKELETAL: Extremities without clubbing, cyanosis, or edema. No calf tenderness. NEUROLOGICAL: Awake and alert. Motor and sensory grossly within normal limits. Normal speech. A/P Problem List: (1) Colitis ICD Code: K52.9 Status: Acute (2) Sepsis ICD Code: A41.9 Status: Resolved Assessment and Plan 56 y/o female with n/v/d and intermittent abdominal pain Colitis. Stool studies with Salmonella in the stool - Abdomen/Pelvis CT shows colitis and fluid throughout the large bowel - IV Cipro q12h and Metronidazole 500 mg q6h - Will consult Dr. Linn - GI - appreciate assistance Sepsis - WBC 14.4 with neutrophilia, Temperature 101.0, pulse 124, respiratory rate 24 on admission - Blood cultures pending - Lactic acid 1.3 - Stool for culture and c.diff testing ordered in ED - NS fluid boluses x 2 in ED, maintenance with NS at 100 cc/hr - Monitor I and Os qshift - Clear liquid diet - Zofran4 mg IV q6h PRN n/v Hypokalemia: K at 2.7 replaced with 40 mEq IV and 60 mq PO . Monitor and replace as need. Check Mag level. Hyponatremia - Na+ 128 on admission. Improving. - Replaced IV - repeat BMP in a.m. and follow results DVT prophylaxis - Lovenox 40 mg subq q24h . Discussed Condition With Patient, and nurse Problem Qualifiers (1) Sepsis: Qualified Code: A41.9 - Sepsis, due to unspecified organism Nahtaly Burgos MD Sep 18, 2016 09:05
[2016-09-18] MEDS ORDERED: POTASSIUM CHLORIDE 10 MEQ CONTROLLED RELEASE TAB PO ONE (09:15)
[2016-09-18] MEDS ORDERED: MAGNESIUM OXIDE 400 MG TAB PO ONE (09:15)
[2016-09-18 11:07] LABS: BACTERIA, URINE RARE /hpf; BLOOD, URINE TRACE (NEG); GLUCOSE,URINE NEG (NEG); KETONE, URINE NEG (NEG); NITRITE,URINE NEG (NEG); SQUAMOUS EPITHELIAL CELL URINE 1 /hpf (0-5); URINE COLOR YELLOW (YELLW/STRAW)
[2016-09-18 11:22] LABS: COMMENT (UR) CULT NOT INDICATED; CULTURE IF INDICATED CULT NOT INDICATED
[2016-09-18] MEDS: POTASSIUM CHLOR 20 MEQ PREMIX 100 ML IV SCH ×2 (12:03→15:03)
--- NOTE | 2016-09-18 12:51 | EKG ---
Date Performed: 09/17/2016 Time Performed: 19:52:28 PTAGE: 56 years EKG: Sinus rhythm BORDERLINE LEFT AXIS DEVIATION NONSPECIFIC T-WAVE ABNORMALITY BORDERLINE ECG PREVIOUS TRACING : 08/24/2016 12.26 DOCTOR: Jesus Parekh Interpretating Date/Time 09/18/2016 12:48:06
--- NOTE | 2016-09-18 17:07 | MB ---
cc: JUAN R RODRÍGUEZ LOUIS M. MD PASRICHA, SUNIL P. M.D. COSMA, MIRELA MD DATE OF CONSULTATION: 09/18/[address] Nathaly Burgos REASON FOR CONSULTATION Nausea, vomiting, diarrhea. HISTORY This is a 56-year-old female who has been followed closely by Dr. Linn for chronic nausea, vomiting and occasional diarrhea. The patient recently underwent upper endoscopy and colonoscopy by Dr. Linn a few months ago and was found to have two small 4 mm antral ulcers likely due to her taking NSAIDs for chronic back pain. She also underwent colonoscopy. Biopsies were negative for microscopic colitis and also for celiac sprue. The patient has had CAT scans done as recently as August 24 that showed marked distension and fluid-filled stomach and small bowel. She states that she attempted a gastric emptying scan but was unable to complete it. She was seen recently in the office by Dr. Linn and he advised her to get a second opinion at a tertiary care center. She has not yet contacted [facility] for an appointment. She states that for several years she has had frequent nausea and vomiting usually in the morning. She states she has gradually been losing weight. She states that two days ago she ate some rotisserie chicken that she bought at a local food bulk delivery driver and both her and her significant other developed diarrhea within hours after eating it. Her boyfriend did not have any vomiting but the patient had nausea and vomiting that woke her up in the middle of the night after ingesting the chicken but yesterday the vomiting had stopped. She was having up to 10 green liquid stools daily with generalized fatigue. Her stool cultures have been negative for C. diff but positive for Salmonella. She did have a low-grade fever and some chills and was started on oral Cipro. She is currently resting comfortably but is very tired because she states she did not sleep well last night. SOCIAL HISTORY She is but has a significant other. She is a cigarette smoker. MEDICATIONS Her medications at home include - 1. Omeprazole 40 mg daily. 2. Hydroxyzine 25 mg t.i.d. 3. Bevespi one puff daily. 4. Trintellix 20 mg tablet daily. 5. Trazodone 50 mg at bedtime. 6. Zofran 8 mg or 4 mg t.i.d. p.r.n. ALLERGIES SHE IS ALLERGIC TO BIAXIN, DOXYCYCLINE, VIOXX, MORPHINE AND ERYTHROMYCIN. SHE ALSO HAS ABDOMINAL CRAMPING WITH CHEESE. FAMILY HISTORY She has a brother with oral cancer, mother had lung cancer. No family history of colon cancer or inflammatory bowel disease. PAST SURGICAL HISTORY She denies any prior abdominal or pelvic surgery. She has had carpal tunnel surgery, back surgery and bilateral tubal ligation which the latter obtained from her records. No history of diabetes or thyroid problems. She has chronic back and neck pain and some issues with anxiety. REVIEW OF SYSTEMS Remarkable for the GI symptoms as described above. The a.m. nausea and vomiting has been chronic. She has had chronic back pain. No shortness of breath or chest pain. No heartburn. She states she has been avoiding NSAIDs since her ulcer diagnosis. No urinary tract symptoms. PHYSICAL EXAMINATION GENERAL: Reveals a thin female in mild distress. VITAL SIGNS: Her blood pressure is 112/60, pulse 82, respirations 16 nonlabored, temperature is 100.4. HEAD, EYES, EARS, NOSE AND THROAT: Sclerae anicteric. NECK: Supple without masses. LUNGS: Reveal decreased breath sounds bilaterally. No rales or rhonchi. CARDIOVASCULAR: Heart sounds are regular without murmur, gallop or rub. ABDOMEN: Abdomen is soft, nondistended with no significant tenderness, no palpable masses, no organomegaly, no ascites. Bowel sounds are present. No appreciable bruits. RECTAL: Deferred. No cyanosis or edema. SKIN: Warm and dry. She was alert and oriented. LABORATORY DATA Her lab work reveals a white count on admission of 14,400 with a left shift but has come down to 9.2 today. Hemoglobin is 10.5. Her potassium dropped to 2.7 and she is getting IV potassium supplements, creatinine is normal at 0.57, BUN 11, LFTs are unremarkable except for an AST of 68, albumin 2.9, lipase is normal. C. diff toxin by PCR was negative. Urinalysis was negative for infection. Stool cultures: No Shigella, Campylobacter, Yersinia, Vibrio, Norovirus, or Enterohemorrhagic E. coli detected, but a Salmonella species was detected by PCR. IMAGING CT scan: I reviewed her CT scan from yesterday as well as the one from earlier this month with one of the radiologists. The previously noted distended stomach and small bowel distension have improved significantly, but now she has a new finding of thickening of the colon especially on the left side with fluid in the colon consistent with colitis. IMPRESSION Acute Salmonella gastroenteritis. The patient may have contracted it from the chicken. PLAN Agree with IV fluids and p.r.n. analgesics. The use of antibiotics is somewhat controversial, but she has had a fever and leukocytosis so not unreasonable to give her the Cipro. Would not recommend any further intervention at this time until resolution of her current Salmonella gastroenteritis. With regards to her long-term problems with frequent vomiting, consideration could be given to CT or MR enterography and also look for evidence of mesenteric ischemia as her recent CT scans were given without IV contrast. This can be followed up in the office by Dr. Linn. We will follow during this admission as needed. Thank you for this consult. MD DAMION Lunsford/EMA /1:15 PM /4:28 PM JOSE
[2016-09-18] MEDS: ONDANSETRON HCL 4 MG/2 ML VIAL IVP PRN (17:42)
[2016-09-18] MEDS ORDERED: CIPROFLOXACIN 500 MG TAB PO SCH (21:00)
[2016-09-18] MEDS ORDERED: ONDANSETRON HCL 4 MG/2 ML VIAL IV PUSH ONE (22:30)
[2016-09-18] MEDS ORDERED: HYDROmorphone HCL PF 1 MG/ML VIAL IV PUSH ONE (22:30)
[2016-09-18] MEDS: traZODone HCL 50 MG TAB PO SCH (22:41)
[2016-09-18] MEDS: ACETAMINOPHEN/HYDROcodone 325 MG/5 MG TAB PO PRN (22:41)
[2016-09-18] MEDS: CIPROFLOXACIN 400 MG PREMIX 200 ML IV SCH (22:43)
[2016-09-19] VITALS (10 sets, daily range): BP systolic 121–149; BP diastolic 63–83; PULSE 70–95; RESP 16–18; TEMP 97–98.6; O2SAT 96–100
[2016-09-19] MEDS: metroNIDAZOLE 500 MG INJ 100 ML IV SCH ×4 (03:55→22:05)
[2016-09-19] MEDS: 1/2 NS + KCL 20 MEQ INJ 1,000 ML IV SCH (03:55)
[2016-09-19] MEDS: ACETAMINOPHEN/HYDROcodone 325 MG/5 MG TAB PO PRN ×3 (06:07→22:03)
[2016-09-19] MEDS: CIPROFLOXACIN 400 MG PREMIX 200 ML IV SCH ×2 (07:53→22:04)
[2016-09-19] MEDS: SODIUM CHLORIDE 0.9% FLUSH 10 ML FLUSH IV FLUSH SCH ×2 (07:53→21:00)
[2016-09-19] MEDS: PANTOPRAZOLE SOD 40 MG DELAYED RELEASE TAB PO SCH (07:53)
[2016-09-19] MEDS: ENOXAPARIN SODIUM 40 MG/0.4 ML SYRINGE SQ SCH (07:53)
[2016-09-19 08:19] LABS: AUTOMATED NEUTROPHIL # 4.5 TH/MM3 (1.8-7.7); BASOPHIL % 0.7 % (0.0-2.0); EOSINOPHIL % 0.4 % (0.0-4.0); HEMATOCRIT 32.6 % (35.0-46.0); HEMO FLAGS DIFF FINAL; LYMPH % 15.3 % (9.0-44.0); LYMPHOCYTE # 0.9 TH/MM3 (1.0-4.8); MEAN CELL VOLUME 96.7 FL (80.0-100.0); MEAN CORPUSCULAR HEMOGLOBIN 31.6 PG (27.0-34.0); MEAN CORPUSCULAR HGB CONC 32.7 % (32.0-36.0); MONO % 9.8 % (0.0-8.0); NEUT % 73.8 % (16.0-70.0); PLATELET COUNT 276 TH/MM3 (150-450); RED BLOOD COUNT 3.37 MIL/MM3 (4.00-5.30)
[2016-09-19 08:35] LABS: MAGNESIUM 1.8 MG/DL (1.5-2.5)
[2016-09-19 08:42] LABS: POTASSIUM 2.9 MEQ/L (3.5-5.1)
--- NOTE | 2016-09-19 09:07 | HHI.PR ---
Subjective Remarks K still low. patient had some nausea however did not vomiting, she wants to try reg diet. No abd pain . No fever or chills. Still with some diarrhea. Denies chest pain. Objective Vitals Vital Signs Date Time Temp Pulse Resp B/P Pulse Ox O2 Delivery O2 Flow Rate FiO2 09/19/16 08:00 97.4 75 16 131/75 99 09/19/16 04:00 97.5 76 18 121/63 98 09/19/16 04:00 83 09/19/16 00:16 81 09/19/16 00:00 97.0 81 18 144/65 96 09/18/16 23:32 18 09/18/16 23:32 18 09/18/16 20:00 100.3 84 18 136/67 99 09/18/16 16:12 78 09/18/16 16:03 75 09/18/16 16:00 98.1 75 18 122/63 100 09/18/16 12:08 81 09/18/16 12:00 100.4 82 16 112/60 100 I/O 09/18/16 09/18/16 09/18/16 09/19/16 09/19/16 09/19/16 07:00 15:00 23:00 07:00 15:00 23:00 Intake Total 200 ml 720 ml 2462 ml 720 ml Output Total 600 ml 400 ml Balance 200 ml 720 ml 1862 ml 320 ml Intake Oral 200 ml 720 ml 800 ml 720 ml IV Total 1662 ml Output Urine Total 600 ml 400 ml # Voids 3 3 # Bowel Movements 3 4 2 Result Diagram: 09/19/16 0757 09/19/16 0757 Imaging Last Impressions Abdomen/Pelvis CT 09/17/16 0227 Signed Impressions: Service Date/Time: Saturday, September 17, 2016 19:39 - CONCLUSION: 1. Wall thickening throughout the colon greatest within the sigmoid colon likely colitis. Fluid throughout the large bowel. 2. Minimal parenchymal density left lower lobe could be atelectasis or minimal infiltrate. Fidencio Key MD Objective Remarks GENERAL: This is a cachectic female patient who looks much older than stated age , in no apparent distress. CARDIOVASCULAR: Regular rate and rhythm without murmurs, gallops, or rubs. RESPIRATORY: Clear to auscultation. Breath sounds equal bilaterally. No wheezes , rales, or rhonchi. GASTROINTESTINAL: Abdomen soft, tender to palpation, nondistended. No guarding. MUSCULOSKELETAL: Extremities without clubbing, cyanosis, or edema. No calf tenderness. NEUROLOGICAL: Awake and alert. Motor and sensory grossly within normal limits. Normal speech. A/P Problem List: (1) Colitis ICD Code: K52.9 Status: Acute (2) Sepsis ICD Code: A41.9 Status: Resolved Assessment and Plan 56 y/o female with n/v/d and intermittent abdominal pain Colitis. Stool studies with Salmonella in the stool - Abdomen/Pelvis CT shows colitis and fluid throughout the large bowel - IV Cipro q12h and Metronidazole 500 mg q6h - Consult Dr. Linn - GI - appreciate assistance Sepsis - WBC 14.4 with neutrophilia, Temperature 101.0, pulse 124, respiratory rate 24 on admission - Blood cultures pending - Lactic acid 1.3 - Stool for culture and c.diff testing ordered in ED - NS fluid boluses x 2 in ED, maintenance with NS at 100 cc/hr - Monitor I and Os qshift - Clear liquid diet - Zofran4 mg IV q6h PRN n/v Hypokalemia, persistent K at 2.7 replaced with 40 mEq IV and 60 mq PO . Monitor and replace as need. Check Mag level. Patient with persistent hypokalemia, started IVF 1/2 NS with supplemental 20 mEq KCl. Give additional 40 mEq IV 09/19 Hyponatremia - Na+ 128 on admission. Improving. - Replaced IV - repeat BMP in a.m. and follow results DVT prophylaxis - Lovenox 40 mg subq q24h . Discussed Condition With Patient, and nurse Problem Qualifiers (1) Sepsis: Qualified Code: A41.9 - Sepsis, due to unspecified organism Nathaly Burgos MD Sep 19, 2016 09:07
[2016-09-19] MEDS ORDERED: MAGNESIUM OXIDE 400 MG TAB PO ONE (09:15)
--- NOTE | 2016-09-19 09:35 | HHI.GIFU ---
GI Follow-up Note Consult Follow-up Subjective: Patient laying in bed comfortably, still has diarrhea but is getting better and no further nausea. Tolerating clear liquids. K+ still low. Objective: PHYSICAL EXAMINATION: Vitals signs stable No fever CHEST: Nonlabored breathing ABDOMEN: Soft, nondistended, nontender. 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 Available Data (labs, X- Rays, Procedues) : ASSESSMENT/PLAN: 1. Salmonella gastroenteritis-agree with advancing diet as tolerated and correcting hypokalemia. Should be able to go home over weekend. Rec she f/u with Dr Linn after discharge. Will sign off. Call if needed. It was a pleasure seeing Yoselin Ernandez Thank you for this consult. Entered by: Rg Valverde MD Sep 19, 2016 09:35
[2016-09-19] MEDS: POTASSIUM CHLORIDE 10 MEQ CONTROLLED RELEASE TAB PO SCH (11:54)
[2016-09-19] MEDS: POTASSIUM CHLOR 20 MEQ PREMIX 100 ML IV SCH ×2 (11:55→16:07)
[2016-09-19] MEDS: ONDANSETRON HCL 4 MG/2 ML VIAL IVP PRN (17:11)
[2016-09-19] MEDS ORDERED: METOCLOPRAMIDE HCL 10 MG/2 ML VIAL IV PUSH PRN (21:00)
[2016-09-19] MEDS: traZODone HCL 50 MG TAB PO SCH (22:05)
[2016-09-20] VITALS (8 sets, daily range): BP systolic 138–155; BP diastolic 66–72; PULSE 70–83; RESP 17–20; TEMP 97.1–98.9; O2SAT 98–99
[2016-09-20] MEDS: 1/2 NS + KCL 20 MEQ INJ 1,000 ML IV SCH (00:29)
[2016-09-20] MEDS: metroNIDAZOLE 500 MG INJ 100 ML IV SCH ×3 (04:07→16:23)
[2016-09-20 07:54] LABS: AUTOMATED NEUTROPHIL # 3.1 TH/MM3 (1.8-7.7); BASOPHIL # 0.1 TH/MM3 (0-0.2); BASOPHIL % 1.7 % (0.0-2.0); EOSINOPHIL # 0.1 TH/MM3 (0-0.4); EOSINOPHIL % 1.6 % (0.0-4.0); HEMATOCRIT 34.6 % (35.0-46.0); HEMO FLAGS DIFF FINAL; LYMPH % 31.3 % (9.0-44.0); LYMPHOCYTE # 1.8 TH/MM3 (1.0-4.8); MEAN CELL VOLUME 94.5 FL (80.0-100.0); MEAN CORPUSCULAR HEMOGLOBIN 32.5 PG (27.0-34.0); MEAN CORPUSCULAR HGB CONC 34.4 % (32.0-36.0); NEUT % 53.4 % (16.0-70.0); PLATELET COUNT 283 TH/MM3 (150-450); RED BLOOD COUNT 3.66 MIL/MM3 (4.00-5.30); RED CELL DISTRIBUTION WIDTH 15.4 % (11.6-17.2); WHITE BLOOD COUNT 5.7 TH/MM3 (4.0-11.0)
[2016-09-20 08:16] LABS: BICARBONATE 24.3 MEQ/L (21.0-32.0); MAGNESIUM 1.8 MG/DL (1.5-2.5); POTASSIUM 3.1 MEQ/L (3.5-5.1)
[2016-09-20] MEDS: CIPROFLOXACIN 400 MG PREMIX 200 ML IV SCH (08:57)
[2016-09-20] MEDS: POTASSIUM CHLORIDE 10 MEQ CONTROLLED RELEASE TAB PO SCH (09:00)
[2016-09-20] MEDS: PANTOPRAZOLE SOD 40 MG DELAYED RELEASE TAB PO SCH (09:00)
[2016-09-20] MEDS: ENOXAPARIN SODIUM 40 MG/0.4 ML SYRINGE SQ SCH (09:00)
[2016-09-20] MEDS: ACETAMINOPHEN/HYDROcodone 325 MG/5 MG TAB PO PRN (09:01)
[2016-09-20] MEDS: SODIUM CHLORIDE 0.9% FLUSH 10 ML FLUSH IV FLUSH SCH (09:08)
[2016-09-20] MEDS ORDERED: CIPR500T2 PO (09:16)
--- NOTE | 2016-09-20 09:17 | HHI.DS ---
Discharge Summary Admission Date Sep 17, 2016 at 21:02 Discharge Date: Sep 20, 2016 Admitting Diagnosis colitis, sepsis (1) Colitis ICD Code: K52.9 Diagnosis: Principal (2) Sepsis ICD Code: A41.9 Diagnosis: Principal Procedures none Brief History - From Admission Written by Raisa Arias, acting as scribe for Dr. López on 09/18/16 at 04:33. Patient reports constant vomiting for 2 days Fever Abdominal pain Ice water for the past two days only Diarrhea > 10 times per day for past two days Greenish yellow foul smelling diarrhea States vomiting is occurring every hour Reports that over the past year, she's been vomiting every morning Abdomen/Pelvis CT shows colitis and fluid throughout the large bowel. WBC 14.4 with neutrophilia Sodium 128 GI: Dr. Linn as outpatient Pulmonary: Dr. Penaloza . CBC/BMP: 09/20/16 0748 09/20/16 0748 Significant Findings Laboratory Tests Test 09/17/16 09/18/16 09/18/16 09/19/16 19:10 06:17 08:30 07:57 White Blood Count 14.4 TH/MM3 (4.0-11.0) Red Blood Count 3.75 MIL/MM3 3.19 MIL/MM3 3.37 MIL/MM3 (4.00-5.30) (4.00-5.30) (4.00-5.30) Neutrophils (%) (Auto) 87.7 % 85.2 % 73.8 % (16.0-70.0) (16.0-70.0) (16.0-70.0) Lymphocytes (%) (Auto) 5.8 % 7.3 % (9.0-44.0) (9.0-44.0) Neutrophils # (Auto) 12.6 TH/MM3 7.8 TH/MM3 (1.8-7.7) (1.8-7.7) Lymphocytes # (Auto) 0.8 TH/MM3 0.7 TH/MM3 0.9 TH/MM3 (1.0-4.8) (1.0-4.8) (1.0-4.8) Sodium Level 128 MEQ/L 135 MEQ/L (136-145) (136-145) Chloride Level 93 MEQ/L (98-107) Estimat Glomerular Filtration 65 ML/MIN (>89) Rate Random Glucose 110 MG/DL (74-106) Aspartate Amino Transf 68 U/L (15-37) (AST/SGOT) Albumin 2.9 GM/DL (3.4-5.0) Hemoglobin 10.5 GM/DL 10.7 GM/DL (11.6-15.3) (11.6-15.3) Hematocrit 30.9 % 32.6 % (35.0-46.0) (35.0-46.0) Potassium Level 2.7 MEQ/L 2.9 MEQ/L (3.5-5.1) (3.5-5.1) Calcium Level 7.5 MG/DL 7.6 MG/DL (8.5-10.1) (8.5-10.1) Urine Protein 30 mg/dL (NEG-TRACE) Urine Occult Blood TRACE (NEG) Urine Bacteria RARE /hpf (NONE) Monocytes (%) (Auto) 9.8 % (0.0-8.0) Blood Urea Nitrogen 5 MG/DL (7-18) Test 09/20/16 07:48 Red Blood Count 3.66 MIL/MM3 (4.00-5.30) Hematocrit 34.6 % (35.0-46.0) Monocytes (%) (Auto) 12.0 % (0.0-8.0) Sodium Level 134 MEQ/L (136-145) Potassium Level 3.1 MEQ/L (3.5-5.1) Blood Urea Nitrogen 3 MG/DL (7-18) Calcium Level 7.9 MG/DL (8.5-10.1) Imaging Last Impressions Abdomen/Pelvis CT 09/17/16 4399 Signed Impressions: Service Date/Time: Saturday, September 17, 2016 19:39 - CONCLUSION: 1. Wall thickening throughout the colon greatest within the sigmoid colon likely colitis. Fluid throughout the large bowel. 2. Minimal parenchymal density left lower lobe could be atelectasis or minimal infiltrate. Fidencio Key MD PE at Discharge GENERAL: This is a cachectic female patient who looks much older than stated age , in no apparent distress. CARDIOVASCULAR: Regular rate and rhythm without murmurs, gallops, or rubs. RESPIRATORY: Clear to auscultation. Breath sounds equal bilaterally. No wheezes , rales, or rhonchi. GASTROINTESTINAL: Abdomen soft, tender to palpation, nondistended. No guarding. MUSCULOSKELETAL: Extremities without clubbing, cyanosis, or edema. No calf tenderness. NEUROLOGICAL: Awake and alert. Motor and sensory grossly within normal limits. Normal speech. Pt update on day of discharge Patient is able to eat regular food. Not much nausea, diarrhea imprpved, says stool is forming. No fever ro chills. No cp, sob. Feels comfortable to go home. Will follow up as OP with PCP and Dr Jon her GI doctor Hospital Course 56 y/o female with n/v/d and intermittent abdominal pain Is found with salmonella cplitis treated with IV abx. switch to PO ciprofloxacin at DC. Also with severe hypokalemia replaced. Patient tolerates food. Patient improved, discharged home in stable condition, to follow up as OP with PCP and consultants. Colitis. Stool studies with Salmonella in the stool - Abdomen/Pelvis CT shows colitis and fluid throughout the large bowel - IV Cipro q12h and Metronidazole 500 mg q6h - Consult Dr. Linn - GI - appreciate assistance Sepsis. Resolved. - WBC 14.4 with neutrophilia, Temperature 101.0, pulse 124, respiratory rate 24 on admission - Blood cultures pending - Lactic acid 1.3 - Stool for culture and c.diff testing ordered in ED - NS fluid boluses x 2 in ED, maintenance with NS at 100 cc/hr - Monitor I and Os qshift - Clear liquid diet - Zofran4 mg IV q6h PRN n/v Hypokalemia. Resolving. Will give K supplement at DC. K at 2.7 replaced with 40 mEq IV and 60 mq PO . Monitor and replace as need. Check Mag level. Patient with persistent hypokalemia, started IVF 1/ NS with supplemental 20 mEq KCl. Give additional 40 mEq IV 09/19 Hyponatremia - Na+ 128 on admission. Improved significantly - Replaced IV - repeat BMP in a.m. and follow results DVT prophylaxis - Lovenox 40 mg subq q24h . Discussed Condition With Patient, and nurse Pt Condition on Discharge: Stable Discharge Disposition: Discharge Home Discharge Time: > 30 minutes Discharge Instructions DIET: Follow Instructions for: As Tolerated, No Restrictions Activities you can perform: Regular-No Restrictions Follow up Referrals: Gastroenterology - 3-5 Days with Nba Linn MD PCP Follow-up - 2-3 Days New Medications: Ciprofloxacin (Ciprofloxacin) 500 Mg Tab 500 MG PO BID Infection #10 Ref 0 TAB Potassium Bicarbonate Effervescent (Klor-Con EF) 25 Meq Tab 25 MEQ PO DAILY Electrolyte Replacement #10 Ref 0 TAB Continued Medications: Glycopyrrolate-Formoterol Fuma (Bevespi Aerosphere 9-4.8 Mcg/Act) 1 Aer Aer 1 PUFF INH DAILY Hydroxyzine HCl (Hydroxyzine HCl) 25 Mg Tab 25 MG PO TID Ref 0 TAB Omeprazole (Omeprazole) 40 Mg Cap 40 MG PO DAILY GERD #30 Ref 0 CAP Ondansetron (Ondansetron) 8 Mg Tab 4 MG PO TID Nausea/Vomiting Ref 0 TAB Trazodone (Trazodone) 50 Mg Tab 50 MG PO HS Control Depression #30 Ref 0 TAB Vortioxetine (Trintellix) 20 Mg Tab 20 MG PO DAILY Control Depression #30 Ref 0 TAB Nathaly Burgos MD Sep 20, 2016 09:17
[2016-09-20] MEDS ORDERED: KLOR25TA2 PO (09:20)
[2016-09-20] MEDS ORDERED: POTASSIUM CHLORIDE 20 MEQ CONTROLLED RELEASE TAB PO ONE (10:00)
[2016-09-20] MEDS: ONDANSETRON HCL 4 MG/2 ML VIAL IVP PRN (11:24)
--- NOTE | 2016-09-20 15:57 | HHI.PR ---
Subjective Remarks late entry Patient was seen pediatric critical care nurse; She had some nausea but was able to eat food without vomiting. Patient however was noted vomiting later on. Says diarrhea is improved. No fever or chills. No abdominal pain. Improved overall. Objective Vitals Vital Signs Date Time Temp Pulse Resp B/P Pulse Ox O2 Delivery O2 Flow Rate FiO2 09/20/16 12:11 79 09/20/16 11:50 98.4 70 20 147/66 99 09/20/16 08:15 80 09/20/16 07:50 98.9 79 20 149/72 98 09/20/16 04:00 97.1 71 17 138/71 99 09/20/16 00:27 16 09/20/16 00:24 75 09/20/16 00:00 98.1 78 18 141/67 99 09/19/16 20:00 98.6 81 18 140/70 99 09/19/16 16:11 85 09/19/16 16:00 98.4 95 18 149/83 96 I/O 09/19/16 09/19/16 09/19/16 09/20/16 09/20/16 09/20/16 06:59 14:59 22:59 06:59 14:59 22:59 Intake Total 720 ml 3420 ml 240 ml 480 ml 651 ml Output Total 400 ml 450 ml 1025 ml 300 ml Balance 320 ml 3420 ml -210 ml -545 ml 351 ml Intake Oral 720 ml 1320 ml 240 ml 480 ml IV Total 2100 ml 651 ml Output Urine Total 400 ml 450 ml 1025 ml Emesis 300 ml # Voids 5 # Bowel Movements 2 5 2 1 Result Diagram: 09/20/16 0748 09/20/16 0748 Imaging Last Impressions Abdomen/Pelvis CT 09/17/16 3727 Signed Impressions: Service Date/Time: Saturday, September 17, 2016 19:39 - CONCLUSION: 1. Wall thickening throughout the colon greatest within the sigmoid colon likely colitis. Fluid throughout the large bowel. 2. Minimal parenchymal density left lower lobe could be atelectasis or minimal infiltrate. Fidencio Key MD Objective Remarks GENERAL: This is a cachectic female patient who looks much older than stated age , in no apparent distress. CARDIOVASCULAR: Regular rate and rhythm without murmurs, gallops, or rubs. RESPIRATORY: Clear to auscultation. Breath sounds equal bilaterally. No wheezes , rales, or rhonchi. GASTROINTESTINAL: Abdomen soft, tender to palpation, nondistended. No guarding. MUSCULOSKELETAL: Extremities without clubbing, cyanosis, or edema. No calf tenderness. NEUROLOGICAL: Awake and alert. Motor and sensory grossly within normal limits. Normal speech. Procedures none A/P Problem List: (1) Colitis ICD Code: K52.9 Status: Acute (2) Sepsis ICD Code: A41.9 Status: Resolved Assessment and Plan 56 y/o female with n/v/d and intermittent abdominal pain Colitis. Stool studies with Salmonella in the stool Nausea/ vomiting /diarrhea - Abdomen/Pelvis CT shows colitis and fluid throughout the large bowel - IV Cipro q12h and Metronidazole 500 mg q6h - Consult Dr. Linn - GI - appreciate assistance - Antiemetics as need. Sepsis - WBC 14.4 with neutrophilia, Temperature 101.0, pulse 124, respiratory rate 24 on admission - Blood cultures pending - Lactic acid 1.3 - Stool for culture and c.diff testing ordered in ED - NS fluid boluses x 2 in ED, maintenance with NS at 100 cc/hr - Monitor I and Os qshift - Clear liquid diet - Zofran4 mg IV q6h PRN n/v Hypokalemia, persistent K today still low at 3.1 . K 2.7 on 09/19 replaced with 40 mEq IV and 60 mq PO . Monitor and replace as need. Check Mag level. Patient with persistent hypokalemia, started IVF 1/2 NS with supplemental 20 mEq KCl. Give additional 40 mEq IV 09/19. Give additional 40 mEq IV if not able to tolerate PO Hyponatremia - Na+ 128 on admission. Improving. - Replaced IV - repeat BMP in a.m. and follow results DVT prophylaxis - Lovenox 40 mg subq q24h . Discussed Condition With Patient, and nurse Discharge when improves, still with n/v. DC if able to tolerate food Problem Qualifiers (1) Sepsis: Qualified Code: A41.9 - Sepsis, due to unspecified organism Nathaly Burgos MD Sep 20, 2016 15:57
[2016-09-20] MEDS ORDERED: POTASSIUM CHLORIDE 10 MEQ CONTROLLED RELEASE TAB PO ONE (17:30)
== END 2016-09-20 19:54 | disposition home or self-care (01) | DRG 872 ==
LOC: NEPE 18:05 → NEDA 21:02 → HOCB 22:41
PROVIDERS: ADMIT Hospitalist; ATTEND Hospitalist
DX: A41.9 Sepsis, unspecified organism (principal); A02.0 Salmonella enteritis; E87.1 Hypo-osmolality and hyponatremia; J44.9 Chronic obstructive pulmonary disease, unspecified; G89.29 Other chronic pain; M54.2 Cervicalgia; M54.9 Dorsalgia, unspecified; F41.9 Anxiety disorder, unspecified; Z87.11 Personal history of peptic ulcer disease; F17.210 Nicotine dependence, cigarettes, uncomplicated; E87.6 Hypokalemia
CPT/HCPCS: 74176; 80048; 80053; 81001; 83605; 83690; 83735; 85025; 87040; 87493; 87506; 93005; 96361; 96365; 96375; J0744; J1170; J1650; J2405; J2765; J3480; J7030

== ENCOUNTER → 2016-10-14 | Outpatient (CLI) | payer MEDICARE, MEDICAID ==
[~2016-10-14] MED LIST changes: +ATOR10TA15 PO; +CIPR500T2 PO; +GLYC1AER INH; +HYDR-3133 PO; -HYDR-3516 PO; +KLOR25TA2 PO; +VORT1TAB3 PO; -[UNRECOGNIZED DRUG - CODE]
--- NOTE | 2016-10-14 16:48 | RADRPT ---
EXAM DATE/TIME: 10/14/2016 14:25 [facility] COMPARISON : No previous studies available for comparison. INDICATIONS : Evaluate for mesenteric angiogram HISTORY OF PRESENT ILLNESS: 56-year-old female who is being evaluated for multiple GI complaints. She is being followed by Dr.Pas khalil. A consult was placed for conventional mesenteric angiography. IMAGING STUDIES: MRA of the abdomen July 24, 2016 from [facility]. I have personally reviewed these images. Ro om diffuse atherosclerotic disease throughout the infrarenal aorta as well as its major branches. Wit h respect to the mesenteric vessels there is atherosclerotic disease present but no hemodynamically s ignificant stenosis. ASSESSMENT: Central mesenteric vessels are patent based on the MRA. PLAN: The central mesenteric vessels are patent based on the MRA. I'm not so sure conventional angiography would benefit this patient. If a second evaluation of the mesenteric vessels is requested this can be performed without intervention utilizing CTA technique. TIME SPENT: 15 minutes Trent Martinez Jr., MD on October 14, 2016 at 16:41 Board Certified Radiologist. This report was verified electronically.
== END ==
LOC: HRAD 14:15
PROVIDERS: ATTEND Internal Medicine Gastroenterology
DX: I70.0 Atherosclerosis of aorta (principal)